=== PATIENT | female | born 1940 | race Hispanic/Latino ===

== ENCOUNTER 2016-05-01 11:14 | Inpatient (IN) | payer MEDICARE, BC ==
[2016-05-01 13:40] VITALS: BMI 39.9
--- NOTE | 2016-05-01 14:44 | CP.PCM.HP ---
History of Present Illness - History of Present Illness History of Present Illness: 75 yo female with history of HTN, HLD, Sleep Apnea, DM2 and Gout had right TKR on April 29, 2016 after failing conservative management of OA of the right knee. Present on Admission - Present on Admission Any Indicators Present on Admission: No History of DVT/PE: No History of Uncontrolled Diabetes: No Urinary Catheter: No Decubitus Ulcer Present: No Review of Systems - Review of Systems All systems: reviewed and no additional remarkable complaints except (aside from those mentioned above, 12 point system review were negative by me) Past Patient History - Tetanus Immunizations Tetanus Immunization: Unknown - Past Social History Smoking Status: Never Smoked Chewing Tobacco Use: No Cigar Use: No Alcohol: Occasional - CARDIAC Hx Hypercholesterolemia: Yes Hx Hypertension: Yes - PULMONARY Hx Sleep Apnea: Yes - NEUROLOGICAL Hx Neurological Disorder: No - HEENT Hx HEENT Problems: No - RENAL Hx Chronic Kidney Disease: No - ENDOCRINE/METABOLIC Hx Diabetes Mellitus Type 2: Yes (controlled by diet) - HEMATOLOGICAL/ONCOLOGICAL Hx Blood Disorders: No - INTEGUMENTARY Hx Dermatological Problems: No - MUSCULOSKELETAL/RHEUMATOLOGICAL Hx Gout: Yes Hx Osteoarthritis: Yes - GASTROINTESTINAL Hx Gastrointestinal Disorders: No - GENITOURINARY/GYNECOLOGICAL Hx Genitourinary Disorders: No - PSYCHIATRIC Hx Psychophysiologic Disorder: No - SURGICAL HISTORY Hx Surgeries: Yes Hx Cholecystectomy: Yes Other/Comment: carpal tunnel release - ANESTHESIA Hx Anesthesia: Yes Hx Anesthesia Reactions: No Meds Allergies/Adverse Reactions: Allergies Allergy/AdvReac Type Severity Reaction Status Date / Time iodine AdvReac ITCHING Verified 05/01/16 13:49 Iodine and Iodide Containing AdvReac RASH Verified 05/01/16 13:49 Produc Physical Exam - Constitutional Appears: No Acute Distress - Head Exam Head Exam: ATRAUMATIC - Eye Exam Eye Exam: absent: Scleral icterus - ENT Exam ENT Exam: Mucous Membranes Moist - Neck Exam Neck exam: Negative for: Meningismus - Respiratory Exam Respiratory Exam: absent: Rhonchi, Wheezes, Respiratory Distress - Cardiovascular Exam Cardiovascular Exam: REGULAR RHYTHM, +S1, +S2 - GI/Abdominal Exam GI & Abdominal Exam: Soft. absent: Tenderness - Rectal Exam Rectal Exam: Deferred - Neurological Exam Neurological exam: Alert, Oriented x3 - Psychiatric Exam Psychiatric exam: Normal Affect - Skin Skin Exam: Dry, Intact Assessment & Plan (1) Status post total knee replacement, right Status: Acute Comment: admit to acute rehab. physiatry consult with Dr Foster. refer for PT/ OT. Percocet 1 tab q 4hrs prn for pain (2) HTN (hypertension) Status: Chronic Comment: continue Coreg, Valsartan/HCTZ and Lasix. Monitor BP (3) DM2 (diabetes mellitus, type 2) Status: Chronic Comment: HgA1C, BMP in am. accuchek ACHS. Victoza 12 units SC daily (4) Gout Status: Chronic Comment: continue Allopurinol 100mg PO BID (5) HLD (hyperlipidemia) Status: Chronic Comment: cotninue LIpitor 10mg PO HS (6) DVT prophylaxis Status: Acute Comment: Lovenox 30mg SC q 12hrs
[2016-05-01] MEDS ORDERED: CYCLOSPORINE OU SCH (15:45)
--- NOTE | 2016-05-01 18:24 | CP.PCM.PN ---
Subjective - Date & Time of Evaluation Date of Evaluation: 05/01/16 Time of Evaluation: 18:23 - Subjective Subjective: right TKR Objective - Vital Signs/Intake and Output Vital Signs (last 24 hours): Temp Pulse Resp BP Pulse Ox 97.9 F 70 20 155/78 H 95 05/01/16 15:45 05/01/16 17:28 05/01/16 15:45 05/01/16 17:28 05/01/16 15:45 - Medications Medications: Current Medications Acetaminophen (Tylenol 325mg Tab) 650 mg PO Q4 PRN PRN Reason: Pain, Mild (1-3) Allopurinol (Zyloprim) 100 mg PO BID [facility] Last Admin: 05/01/16 17:09 Dose: 100 mg Atorvastatin Calcium (Lipitor) 10 mg PO DIN [facility] Last Admin: 05/01/16 17:09 Dose: 10 mg Carvedilol (Coreg) 25 mg PO QPM [facility] Last Admin: 05/01/16 17:28 Dose: 25 mg Docusate Sodium (Colace) 100 mg PO BID [facility] Last Admin: 05/01/16 17:11 Dose: 100 mg Enoxaparin Sodium (Lovenox) 40 mg SC DAILY [facility] PRN Reason: Protocol Furosemide (Lasix) 20 mg PO MWF [facility] Home Med (Cyclosporine [Restasis]) 1 ea OU .TWICE A WEEK [facility] Home Med (Liraglutide [Victoza 2-Marques]) 12 units SC DAILY [facility] Hydrochlorothiazide (Microzide) 12.5 mg PO DAILY [facility] Oxycodone/Acetaminophen (Percocet 5/325 Mg Tab) 1 tab PO Q4 PRN PRN Reason: pain,4-10 Stop: 05/04/16 15:32 Pantoprazole Sodium (Protonix Ec Tab) 40 mg PO DAILY [facility] Valsartan (Diovan) 320 mg PO DAILY [facility] Physiatry Overall Plan of Care - Overall Plan of Care Estimated Length of Stay in Weeks: 2 Rehab Impairment: Mobility, Gait, Balance, Coordination Etiologic Diagnosis: Hip/Knee Surgery Rehab/Medical Prognosis: Good - Anticipated Interventions Physical Therapy:: Yes Occupational Therapy:: Yes Speech Therapy:: No Recreational Therapy:: Yes - Therapy Goals Bed Mobility: Supervision Ambulation: Supervision Functional Positional Changes:: Supervision - Discharge Plan Discharge Destination: Home
--- NOTE | 2016-05-01 18:26 | CP.PCM.CON ---
History of Present Illness - History of Present Illness History of Present Illness: Dr Foster PMR consultation on Annika Velasco, born 1940, who has been admitted to [facility] acute inpatient rehabilitation following an elective right TKR after failed conservative measures. Performed 04/29/[address] Alves. No post op complications and she has already had a BM Review of Systems - Constitutional Constitutional: absent: Anorexia, Chills - EENT Eyes: absent: Blurred Vision Nose/Mouth/Throat: absent: Nasal Congestion - Cardiovascular Cardiovascular: absent: Chest Pain - Respiratory Respiratory: absent: Dyspnea, Hemoptysis - Gastrointestinal Gastrointestinal: absent: Belching, Constipation - Musculoskeletal Musculoskeletal: absent: Back Pain - Integumentary Integumentary: absent: Bleeding Lesions (has right TKR incision) - Neurological Neurological: absent: Abnormal Movements, Paresthesias Past Patient History - Infectious Disease Hx of Infectious Diseases: None - Tetanus Immunizations Tetanus Immunization: Unknown - Past Medical History & Family History Past Medical History?: Yes - Past Social History Smoking Status: Never Smoked Chewing Tobacco Use: No Cigar Use: No Alcohol: Occasional Home Situation {Lives}: With Family (few steps) - CARDIAC Hx Hypercholesterolemia: Yes Hx Hypertension: Yes - PULMONARY Hx Sleep Apnea: Yes - NEUROLOGICAL Hx Neurological Disorder: No - HEENT Hx HEENT Problems: No - RENAL Hx Chronic Kidney Disease: No - ENDOCRINE/METABOLIC Hx Diabetes Mellitus Type 2: Yes (controlled by diet) - HEMATOLOGICAL/ONCOLOGICAL Hx Blood Disorders: No - INTEGUMENTARY Hx Dermatological Problems: No - MUSCULOSKELETAL/RHEUMATOLOGICAL Hx Gout: Yes Hx Osteoarthritis: Yes - GASTROINTESTINAL Hx Gastrointestinal Disorders: No - GENITOURINARY/GYNECOLOGICAL Hx Genitourinary Disorders: No - PSYCHIATRIC Hx Psychophysiologic Disorder: No - SURGICAL HISTORY Hx Surgeries: Yes Hx Cholecystectomy: Yes Other/Comment: carpal tunnel release - ANESTHESIA Hx Anesthesia: Yes Hx Anesthesia Reactions: No Meds Allergies/Adverse Reactions: Allergies Allergy/AdvReac Type Severity Reaction Status Date / Time iodine AdvReac ITCHING Verified 05/01/16 13:49 Iodine and Iodide Containing AdvReac RASH Verified 05/01/16 13:49 Produc - Medications Medications: Current Medications Acetaminophen (Tylenol 325mg Tab) 650 mg PO Q4 PRN PRN Reason: Pain, Mild (1-3) Allopurinol (Zyloprim) 100 mg PO BID [facility] Last Admin: 05/01/16 17:09 Dose: 100 mg Atorvastatin Calcium (Lipitor) 10 mg PO DIN [facility] Last Admin: 05/01/16 17:09 Dose: 10 mg Carvedilol (Coreg) 25 mg PO QPM [facility] Last Admin: 05/01/16 17:28 Dose: 25 mg Docusate Sodium (Colace) 100 mg PO BID [facility] Last Admin: 05/01/16 17:11 Dose: 100 mg Enoxaparin Sodium (Lovenox) 40 mg SC DAILY [facility] PRN Reason: Protocol Furosemide (Lasix) 20 mg PO MWF [facility] Home Med (Cyclosporine [Restasis]) 1 ea OU .TWICE A WEEK [facility] Home Med (Liraglutide [Victoza 2-Marques]) 12 units SC DAILY [facility] Hydrochlorothiazide (Microzide) 12.5 mg PO DAILY [facility] Oxycodone/Acetaminophen (Percocet 5/325 Mg Tab) 1 tab PO Q4 PRN PRN Reason: pain,4-10 Stop: 05/04/16 15:32 Pantoprazole Sodium (Protonix Ec Tab) 40 mg PO DAILY [facility] Valsartan (Diovan) 320 mg PO DAILY [facility] Physical Exam - Constitutional Appears: Well, Non-toxic, No Acute Distress - Head Exam Head Exam: ATRAUMATIC, NORMAL INSPECTION, NORMOCEPHALIC - Eye Exam Eye Exam: EOMI - ENT Exam ENT Exam: Mucous Membranes Moist - Respiratory Exam Respiratory Exam: NORMAL BREATHING PATTERN. absent: Chest Wall Tenderness - Cardiovascular Exam Cardiovascular Exam: REGULAR RHYTHM - GI/Abdominal Exam GI & Abdominal Exam: Normal Bowel Sounds - Extremities Exam Extremities exam: Negative for: calf tenderness, normal inspection (has a right TKR incision, durabonded) - Neurological Exam Neurological exam: Alert, CN II-XII Intact, Oriented x3 - Psychiatric Exam Psychiatric exam: Normal Affect, Normal Mood Results - Vital Signs Recent Vital Signs: Last Vital Signs Temp 97.9 F 05/01/16 15:45 Pulse 70 05/01/16 17:28 Resp 20 05/01/16 15:45 BP 155/78 H 05/01/16 17:28 Pulse Ox 95 05/01/16 15:45 - Labs Labs: Laboratory Results - last 24 hr 05/01/16 16:37 POC Glucose (mg/dL) 157 H Assessment & Plan - Assessment and Plan (Free Text) Assessment: right TKR Plan: PT/OT to continue to help increase functional independence Team conference for d/c planning Pain: controlled Vascular: no evidence of DVT GI: No evidence of constipation or diarrhea Patient is an excellent acute rehabilitation candidate and will have focused pain management, wound care, PT, OT and recreational therapy to help facilitate a safe and appropriate d/c plan impairment code 08.61
[2016-05-01] MEDS ORDERED: Enoxaparin 30 mg Syringe SC SCH (21:00)
[2016-05-02 07:10] LABS: BASO % 0.3 % (0.0-2.0); EOS # 0.1 K/uL (0.0-0.7); EOS % 0.9 % (0.0-4.0); HEMATOCRIT 30.4 % (34.0-47.0); LYMPH # 1.1 K/uL (1.0-4.3); MEAN CELL VOLUME 74.6 fl (81.0-99.0); MEAN CORPUSCULAR HEMOGLOBIN 24.5 pg (27.0-31.0); MEAN CORPUSCULAR HGB CONC 32.8 g/dL (33.0-37.0); MEAN PLATELET VOLUME 8.7 fl (7.2-11.7); MONO # 0.9 K/uL (0.0-0.8); NEUT # 6.9 K/uL (1.8-7.0); NEUT % 76.8 % (50.0-75.0); RED CELL DISTRIBUTION WIDTH 17.6 % (11.5-14.5)
[2016-05-02 07:30] LABS: BLOOD UREA NITROGEN 13 mg/dl (7-17); CALCIUM 9.1 mg/dL (8.4-10.2); CARBON DIOXIDE 32 mmol/L (22-30); CHLORIDE 96 mmol/L (98-107); GFR AFRICAN-AMERICAN > 60; GLUCOSE,RANDOM 123 mg/dL (65-105); SODIUM 138 mmol/l (132-148); URIC ACID 4.1 mg/Dl (2.2-7.5)
[2016-05-02] MEDS: Pantoprazole 40 mg EC Tab PO SCH (09:00)
[2016-05-02] MEDS ORDERED: Patient's Own Med (Valsartan/Hydrochlorothiazide [Valsartan-Hctz 320-12.5 Mg Tab] 1 TAB) PO SCH (09:00)
[2016-05-02] MEDS ORDERED: LIRAGLUTIDE 12 UNIT SC SCH (09:00)
[2016-05-02] MEDS: Oxycodone/Acetaminophen 5/325 mg Tab PO PRN ×2 (09:04→17:51)
[2016-05-02] MEDS: Enoxaparin 40 mg Syringe SC SCH (12:35)
[2016-05-03] MEDS: Oxycodone/Acetaminophen 5/325 mg Tab PO PRN ×2 (08:47→17:45)
[2016-05-03] MEDS: Enoxaparin 40 mg Syringe SC SCH (08:48)
[2016-05-03] MEDS: Pantoprazole 40 mg EC Tab PO SCH (08:49)
[2016-05-04] MEDS: Pantoprazole 40 mg EC Tab PO SCH (08:30)
[2016-05-04] MEDS: Enoxaparin 40 mg Syringe SC SCH (08:31)
[2016-05-04] MEDS: Oxycodone/Acetaminophen 5/325 mg Tab PO PRN (17:30)
[2016-05-05 06:40] LABS: BASO % 0.6 % (0.0-2.0); EOS # 0.4 K/uL (0.0-0.7); EOS % 5.8 % (0.0-4.0); HEMATOCRIT 29.9 % (34.0-47.0); LYMPH # 1.7 K/uL (1.0-4.3); MEAN CELL VOLUME 75.4 fl (81.0-99.0); MEAN CORPUSCULAR HEMOGLOBIN 23.9 pg (27.0-31.0); MEAN CORPUSCULAR HGB CONC 31.8 g/dL (33.0-37.0); MONO # 0.8 K/uL (0.0-0.8); MONO % 10.6 % (0.0-10.0); NEUT # 4.7 K/uL (1.8-7.0); RED CELL DISTRIBUTION WIDTH 17.5 % (11.5-14.5); WHITE BLOOD COUNT 7.6 K/uL (4.8-10.8)
[2016-05-05] MEDS: Enoxaparin 40 mg Syringe SC SCH (08:42)
[2016-05-05] MEDS: Pantoprazole 40 mg EC Tab PO SCH (08:43)
[2016-05-05] MEDS: Oxycodone/Acetaminophen 5/325 mg Tab PO PRN ×3 (08:43→18:42)
--- NOTE | 2016-05-05 13:27 | CP.PCM.PN ---
Subjective - Date & Time of Evaluation Date of Evaluation: 05/05/16 Time of Evaluation: 14:00 - Subjective Subjective: pt feeling well improving with PT no complaints no cp no sob vss nad Objective - Vital Signs/Intake and Output Vital Signs (last 24 hours): Temp Pulse Resp BP Pulse Ox 97.7 F 72 20 149/63 95 05/05/16 08:02 05/05/16 08:02 05/05/16 08:02 05/05/16 08:48 05/05/16 08:02 Intake and Output: 05/05/16 05/05/16 06:59 18:59 Intake Total 360 Balance 360 - Medications Medications: Current Medications Acetaminophen (Tylenol 325mg Tab) 650 mg PO Q4 PRN PRN Reason: Pain, Mild (1-3) Last Admin: 05/04/16 15:42 Dose: 650 mg Allopurinol (Zyloprim) 100 mg PO BID [facility] Last Admin: 05/05/16 08:43 Dose: 100 mg Atorvastatin Calcium (Lipitor) 10 mg PO [facility] Carvedilol (Coreg) 25 mg PO [facility] Docusate Sodium (Colace) 100 mg PO BID [facility] Last Admin: 05/05/16 08:40 Dose: 100 mg Enoxaparin Sodium (Lovenox) 40 mg SC DAILY [facility] PRN Reason: Protocol Last Admin: 05/05/16 08:42 Dose: 40 mg Furosemide (Lasix) 20 mg PO [facility] Last Admin: 05/05/16 08:48 Dose: 20 mg Home Med (Patient's Own Medication) 1 unit PO DAILY [facility] Oxycodone/Acetaminophen (Percocet 5/325 Mg Tab) 1 tab PO Q4 PRN PRN Reason: pain 4-10 Stop: 05/07/16 15:46 Last Admin: 05/05/16 13:24 Dose: 1 tab Pantoprazole Sodium (Protonix Ec Tab) 40 mg PO DAILY [facility] Last Admin: 05/05/16 08:43 Dose: 40 mg - Labs Labs: 05/05/16 06:33 05/02/16 06:50 - Constitutional Appears: Non-toxic, No Acute Distress - Head Exam Head Exam: ATRAUMATIC, NORMOCEPHALIC - Eye Exam Eye Exam: Normal appearance, PERRL - ENT Exam ENT Exam: Mucous Membranes Moist, Normal Oropharynx - Neck Exam Neck Exam: Full ROM, Normal Inspection - Respiratory Exam Respiratory Exam: Clear to Ausculation Bilateral, NORMAL BREATHING PATTERN - Cardiovascular Exam Cardiovascular Exam: RRR, +S1, +S2. absent: Gallop, Rubs - GI/Abdominal Exam GI & Abdominal Exam: Soft, Normal Bowel Sounds. absent: Tenderness, Mass, Organomegaly - Extremities Exam Extremities Exam: Normal Capillary Refill. absent: Calf Tenderness - Back Exam Back Exam: absent: CVA tenderness (L), CVA tenderness (R) - Neurological Exam Neurological Exam: Alert, Awake - Psychiatric Exam Psychiatric exam: Normal Affect, Normal Mood - Skin Skin Exam: Dry, Warm Assessment and Plan - Assessment and Plan (Free Text) Plan: 75 yo female with history of HTN, HLD, Sleep Apnea, DM2 and Gout had right TKR on April 29, 2016 after failing conservative management of OA of the right knee. (1) Status post total knee replacement, right Status: Acute Comment: physiatry consult with Dr Foster continue PT/OT Percocet 1 tab q 4hrs prn for pain (2) HTN (hypertension) Status: Chronic Comment: continue Coreg, Valsartan/HCTZ and Lasix Monitor BP (3) DM2 (diabetes mellitus, type 2) Status: Chronic Comment: HgA1C, BMP in am. accuchek ACHS. (4) Gout Status: Chronic Comment: continue Allopurinol 100mg PO BID (5) HLD (hyperlipidemia) Status: Chronic Comment: continue Lipitor 10mg PO HS (6) DVT prophylaxis Status: Acute Comment: Lovenox 30mg SC q 12hrs
--- NOTE | 2016-05-05 17:55 | CP.PCM.PN ---
Subjective - Date & Time of Evaluation Date of Evaluation: 05/05/16 Time of Evaluation: 17:54 - Subjective Subjective: Patient seen in room denies sob/cp happy with PT/OT pain is controlled well motivated PT/OT to continue to help increase functional independence Team conference for d/c planning Pain: controlled Vascular: no evidence of DVT GI: constipation for a couple of days, but took stool softener Patient continues to be an excellent acute rehabilitation candidate and will have continued pain management PT, OT and recreational therapy to help facilitate a safe and appropriate d/c plan Objective - Vital Signs/Intake and Output Vital Signs (last 24 hours): Temp Pulse Resp BP Pulse Ox 98.4 F 80 20 152/70 H 94 L 05/05/16 15:59 05/05/16 15:59 05/05/16 15:59 05/05/16 15:59 05/05/16 15:59 Intake and Output: 05/05/16 05/05/16 06:59 18:59 Intake Total 360 Balance 360 - Medications Medications: Current Medications Acetaminophen (Tylenol 325mg Tab) 650 mg PO Q4 PRN PRN Reason: Pain, Mild (1-3) Last Admin: 05/04/16 15:42 Dose: 650 mg Allopurinol (Zyloprim) 100 mg PO BID [facility] Last Admin: 05/05/16 17:10 Dose: 100 mg Atorvastatin Calcium (Lipitor) 10 mg PO HS [facility] Carvedilol (Coreg) 25 mg PO HS [facility] Carvedilol (Coreg) 12.5 mg PO DAILY [facility] Docusate Sodium (Colace) 100 mg PO BID [facility] Last Admin: 05/05/16 17:10 Dose: 100 mg Enoxaparin Sodium (Lovenox) 40 mg SC DAILY [facility] PRN Reason: Protocol Last Admin: 05/05/16 08:42 Dose: 40 mg Furosemide (Lasix) 20 mg PO MWF [facility] Last Admin: 05/05/16 08:48 Dose: 20 mg Home Med (Patient's Own Medication) 1 unit PO DAILY [facility] Oxycodone/Acetaminophen (Percocet 5/325 Mg Tab) 1 tab PO Q4 PRN PRN Reason: pain 4-10 Stop: 05/07/16 15:46 Last Admin: 05/05/16 13:24 Dose: 1 tab Pantoprazole Sodium (Protonix Ec Tab) 40 mg PO DAILY [facility] Last Admin: 05/05/16 08:43 Dose: 40 mg - Labs Labs: 05/05/16 06:33 05/02/16 06:50
[2016-05-06] MEDS: Oxycodone/Acetaminophen 5/325 mg Tab PO PRN ×3 (09:10→18:47)
[2016-05-06] MEDS: Enoxaparin 40 mg Syringe SC SCH (09:32)
[2016-05-06] MEDS: Pantoprazole 40 mg EC Tab PO SCH (09:33)
[2016-05-06] MEDS: VALSARTAN PO SCH (09:33)
--- NOTE | 2016-05-06 13:48 | PSY.TMCNF ---
Nursing - Vital Signs Vital Signs (Last 8 hours): Vital Signs 05/06/16 05/06/16 05/06/16 09:32 10:00 12:03 Temperature 97.3 F L 97.3 F L Pulse Rate 83 83 83 Respiratory 20 20 Rate Blood Pressure 124/53 L 124/53 L 124/53 L O2 Sat by Pulse 99 Oximetry Pain: 0 - Precautions: Precautions: Fall Prevention - Medications/Other Issues Comment: pain management - Consults Comment: Dr. Foster - Skin Incision Site: right knee I/L with dermabond Dressing Status: Clean, Dry, Intact Incision Line Treatment: Civer with abdominal pad then apply cornell bandage - Toileting Toileting: Moderate Assistance - Bladder Management Bladder Pattern: Incontinent Voiding Method: Toilet Bladder Management: Minimal Assistance - Bowel Management Bowel Pattern: Constipated Bowel Management: Minimal Assistance - Transfers Transfers: Moderate Assistance - ADL's ADL's: Moderate Assistance - Pain Management Comments: Percocet 5/325mg 1 tab Q4hr prn - Patient/Family Teaching Comments: Pain management, safety - Goals/Time Frame Comments: as per ipoc Physical Therapy - Bed Mobility Bed Mobility: Verbal Cues, Minimal Assistance, Moderate Assistance Comment: Pt uses her own Green stretch out strap to assist RLE during bed mob. mod vc for sequencing - Transfers Wheelchair to Mat: Verbal Cues, Minimal Assistance Sit to Stand: Verbal Cues, Minimal Assistance, Moderate Assistance Comment: mod vc for sequencing for t/f, magali to scoot forward prior to standing and for hand placement during t/f. sit to stand t/f from elevated mat height w / min A - Ambulation Level of Assistance: Verbal Cues, Minimal Assistance Distance (ft.): 30 Assistive Devices: Rolling Walker Comment: x1, 10' x 1 w/ w/c follow. flexed posture, narrow DAMIEN, antalgic gait; difficulty adhering to PWB gait but improving (Able to perform step to pattern) ; tends to keep R knee slightly flexed t/o gait cycle. Pt self limits amb distance secondary to fatigue, pain and anxiety. Pt tends to take freq standing rest periods at RW and places B hands on front frame of RW during each rest period (despite vc to keep hands on RW handles t/o task). Pt also flexes excessively at trunk during these rest periods. (+)impaired safety awareness during these episodes - Stair Negotiation Stairs: Level of Assistance: Not Tested Comment: Pt declined task today, agreeable to attempt tomorrow. pt has 6 ARMAND - Standing Balance Static Stand: Minimal Assistance Dynamic Stand: Minimal Assistance, Moderate Assistance Comment: w/ RW - Pain Management Techniques: Medication - Insight/Carryover Insight/Carryover: Fair - Patient/Family Education Comment: fxn mob, safety, balance, TKA related topics, benefit of incr'd OOB during rehab stay, POC, rehab goals, edema mgmt, pain mgmt, - Assessment/Plan Assessment: Pt is engaged in independent leisure tasks throughout her free time. Pt reads magazines and books as well as watches television. Pt expressed interest in participating in recreation therapy sessions to improve arousal level and for diversion. - Goals Timeframe: 1 week Goals: STG. CS sit to stand, SPT and supine to sit with RW PWB R LE. Increase R LE 1/2 grade. Increase R knee flexion 20 degrees. Static standing balance CS x 5 minutes for toileting. min A x x1 with 5 practice stairs using HRs PWB. CG/ CS x 75ft. with RW PWB R LE - Provider Therapist: Darlene Littlejohn PT,DPT License Number: [id number] Occupational Therapy - Arousal/Attention/Orientation Patient Orientation: Person, Place, Time, Appropriate to Age, Appropriate to Situation - ADL/IADL Self Feeding: Modified Independent Grooming: Supervision, Verbal Cues, Set-up Help Dressing-Upper Extremity: Supervision, Verbal Cues, Set-up Help Dressing-Lower Extremity: Set-up Help, Moderate Assistance Comment: Shower/bathing: to assess in future sessions. - Sitting Balance Static Sitting: Independent without upper extremity support Dynamic Sitting: Reaches across midline, Reaches out of base of support, Reaches within base of support - Transfers Wheelchair to Bed Transfers: Verbal Cues, Set-up Help, Minimal Assistance Toilet Transfers: Verbal Cues, Set-up Help, Minimal Assistance Comment: *bariatric bedside commode - Wheelchair Management Level of Assistance: Supervision Distance (ft.): 25 - Upper Extremity Status Right Upper Extremity Comment: PROM-WNLS Left Upper Extremity Comment: PROM-WNLS - Pain Alleviating Techniques: Medication - Insight/Carryover Insight/Carryover: Fair - Patient/Family Education Comment: fxn mob, safety, balance, TKA related topics, benefit of incr'd OOB during rehab stay, POC, rehab goals, edema mgmt, pain mgmt, - Assessment/Plan Assessment: Pt is engaged in independent leisure tasks throughout her free time. Pt reads magazines and books as well as watches television. Pt expressed interest in participating in recreation therapy sessions to improve arousal level and for diversion. - Goals Timeframe: 1 week Goals: STG. CS sit to stand, SPT and supine to sit with RW PWB R LE. Increase R LE 1/2 grade. Increase R knee flexion 20 degrees. Static standing balance CS x 5 minutes for toileting. min A x x1 with 5 practice stairs using HRs PWB. CG/ CS x 75ft. with RW PWB R LE - Provider Therapist: kenzie camarillo License Number: [id number] Speech Therapy - Plan Assessment: Pt is engaged in independent leisure tasks throughout her free time. Pt reads magazines and books as well as watches television. Pt expressed interest in participating in recreation therapy sessions to improve arousal level and for diversion. Recreational Therapy - Participation Participation: Monitors His/Her Own Leisure Time - Attendance Attendance: 3-5 times per week - Activities Leisure Activities: Cards and Games - Socialization Level of Socialization: Initiates/interacts freely with care givers and peer - Diversional Time Diversional Time: reading, television - Assessment Assessment/Plan: Pt is engaged in independent leisure tasks throughout her free time. Pt reads magazines and books as well as watches television. Pt expressed interest in participating in recreation therapy sessions to improve arousal level and for diversion. Problems Currently Limiting Participation: pain, anxiety Goals and Time Frame: Pt will be encouraged to attend daily 1:1 and group recreation therapy sessions 3-5x week to improve arousal level, activity tolerance level, and decrease anxiety level. - Provider Therapist: Elana Amador, [employer] #[id number] Nutrition - Current Diet Current Diet/ Supplement/ Feedings: 2 gm Na, moderate consistent CHO diet - Appetite Percent Meal Consumed: 25-49% - Comments Comments: Pain management, safety - Assessment/Goals/Time Frame Assessment/Goals/Time Frame: pain management - Provider Provider: Mary Ann Barker MS, RD Rehabilitation Plan - Treatment Plan Treatment Plan: Physical Therapy, Occupational Therapy, Dietary, Pain Management , Wound Care, Patient/Family Education - Discharge Plan Estimated Date of Discharge: 05/14/16 Discharge to: Home
--- NOTE | 2016-05-06 14:23 | CP.PCM.PN ---
Subjective - Date & Time of Evaluation Date of Evaluation: 05/06/16 Time of Evaluation: 14:22 - Subjective Subjective: Patient seen in room discussed need to do ROM at length and to work harder in therapies the bulky FAROOQ wrap is preventing better ROM and will d/c now and put on SHABBIR stockings Objective - Vital Signs/Intake and Output Vital Signs (last 24 hours): Temp Pulse Resp BP Pulse Ox 97.3 F L 83 20 124/53 L 99 05/06/16 12:03 05/06/16 12:03 05/06/16 12:03 05/06/16 12:03 05/06/16 10:00 - Medications Medications: Current Medications Acetaminophen (Tylenol 325mg Tab) 650 mg PO Q4 PRN PRN Reason: Pain, Mild (1-3) Last Admin: 05/04/16 15:42 Dose: 650 mg Allopurinol (Zyloprim) 100 mg PO BID [facility] Last Admin: 05/06/16 09:33 Dose: 100 mg Atorvastatin Calcium (Lipitor) 10 mg PO [facility] Last Admin: 05/05/16 22:03 Dose: 10 mg Carvedilol (Coreg) 25 mg PO [facility] Last Admin: 05/05/16 22:02 Dose: 25 mg Carvedilol (Coreg) 12.5 mg PO DAILY [facility] Last Admin: 05/06/16 09:32 Dose: 12.5 mg Docusate Sodium (Colace) 100 mg PO BID [facility] Last Admin: 05/06/16 09:31 Dose: 100 mg Enoxaparin Sodium (Lovenox) 40 mg SC DAILY [facility] PRN Reason: Protocol Last Admin: 05/06/16 09:32 Dose: 40 mg Furosemide (Lasix) 20 mg PO MWF [facility] Last Admin: 05/05/16 08:48 Dose: 20 mg Home Med (Patient's Own Medication) 1 unit PO DAILY [facility] Last Admin: 05/06/16 09:33 Dose: 1 unit Lactulose (Enulose) 20 gm PO DAILY PRN PRN Reason: Constipation Oxycodone/Acetaminophen (Percocet 5/325 Mg Tab) 1 tab PO Q4 PRN PRN Reason: pain 4-10 Stop: 05/07/16 15:46 Last Admin: 05/06/16 09:10 Dose: 1 tab Pantoprazole Sodium (Protonix Ec Tab) 40 mg PO DAILY [facility] Last Admin: 05/06/16 09:33 Dose: 40 mg - Labs Labs: 05/05/16 06:33 05/02/16 06:50
[2016-05-07] MEDS: Enoxaparin 40 mg Syringe SC SCH (09:19)
[2016-05-07] MEDS: Oxycodone/Acetaminophen 5/325 mg Tab PO PRN ×2 (09:19→13:21)
[2016-05-07] MEDS: VALSARTAN PO SCH (09:20)
[2016-05-07] MEDS: Pantoprazole 40 mg EC Tab PO SCH (09:20)
--- NOTE | 2016-05-07 11:58 | CP.PCM.PN ---
Subjective - Date & Time of Evaluation Date of Evaluation: 05/07/16 Time of Evaluation: 15:09 - Subjective Subjective: Pt doing well feeling well todya, doing well with PT no cp no dypsnea pain controlled vss nad Objective - Vital Signs/Intake and Output Vital Signs (last 24 hours): Temp Pulse Resp BP Pulse Ox 98.2 F 74 22 153/55 H 96 05/07/16 08:43 05/07/16 09:18 05/07/16 08:43 05/07/16 09:19 05/07/16 08:43 - Constitutional Appears: Non-toxic, No Acute Distress - Head Exam Head Exam: ATRAUMATIC, NORMOCEPHALIC - Eye Exam Eye Exam: Normal appearance, PERRL - ENT Exam ENT Exam: Mucous Membranes Moist, Normal Oropharynx - Neck Exam Neck Exam: Full ROM, Normal Inspection - Respiratory Exam Respiratory Exam: Clear to Ausculation Bilateral, NORMAL BREATHING PATTERN - Cardiovascular Exam Cardiovascular Exam: RRR, +S1, +S2. absent: Gallop, Rubs - GI/Abdominal Exam GI & Abdominal Exam: Soft, Normal Bowel Sounds. absent: Tenderness, Mass, Organomegaly - Extremities Exam Extremities Exam: Normal Capillary Refill. absent: Calf Tenderness - Back Exam Back Exam: absent: CVA tenderness (L), CVA tenderness (R) - Neurological Exam Neurological Exam: Alert, Awake - Psychiatric Exam Psychiatric exam: Normal Affect, Normal Mood - Skin Skin Exam: Dry, Warm - Medications Medications: Current Medications Acetaminophen (Tylenol 325mg Tab) 650 mg PO Q4 PRN PRN Reason: Pain, Mild (1-3) Last Admin: 05/04/16 15:42 Dose: 650 mg Allopurinol (Zyloprim) 100 mg PO BID [facility] Last Admin: 05/07/16 09:21 Dose: 100 mg Atorvastatin Calcium (Lipitor) 10 mg PO [facility] Last Admin: 05/06/16 21:56 Dose: 10 mg Carvedilol (Coreg) 25 mg PO HS [facility] Last Admin: 05/06/16 21:56 Dose: 25 mg Carvedilol (Coreg) 12.5 mg PO DAILY [facility] Last Admin: 05/07/16 09:18 Dose: 12.5 mg Docusate Sodium (Colace) 100 mg PO BID [facility] Last Admin: 05/07/16 09:18 Dose: 100 mg Enoxaparin Sodium (Lovenox) 40 mg SC DAILY [facility] PRN Reason: Protocol Last Admin: 05/07/16 09:19 Dose: 40 mg Furosemide (Lasix) 20 mg PO MWF [facility] Last Admin: 05/07/16 09:19 Dose: 20 mg Home Med (Patient's Own Medication) 1 unit PO DAILY [facility] Last Admin: 05/07/16 09:20 Dose: 1 unit Lactulose (Enulose) 20 gm PO DAILY PRN PRN Reason: Constipation Oxycodone/Acetaminophen (Percocet 5/325 Mg Tab) 1 tab PO Q4 PRN PRN Reason: pain 4-10 Stop: 05/07/16 15:46 Last Admin: 05/07/16 09:19 Dose: 1 tab Pantoprazole Sodium (Protonix Ec Tab) 40 mg PO DAILY [facility] Last Admin: 05/07/16 09:20 Dose: 40 mg - Labs Labs: 05/05/16 06:33 05/02/16 06:50 Assessment and Plan - Assessment and Plan (Free Text) Plan: 75 yo female with history of HTN, HLD, Sleep Apnea, DM2 and Gout had right TKR on April 29, 2016 after failing conservative management of OA of the right knee. (1) Status post total knee replacement, right Status: Acute Comment: physiatry consult with Dr Foster doing well continue plan continue PT/OT Percocet 1 tab q 4hrs prn for pain (2) HTN (hypertension) Status: Chronic Comment: continue Coreg, Valsartan/HCTZ and Lasix Monitor BP (3) DM2 (diabetes mellitus, type 2) Status: Chronic Comment: HgA1C, BMP in am. accuchek ACHS. (4) Gout Status: Chronic Comment: continue Allopurinol 100mg PO BID (5) HLD (hyperlipidemia) Status: Chronic Comment: continue Lipitor 10mg PO HS (6) DVT prophylaxis Status: Acute Comment: Lovenox 30mg SC q 12hrs
[2016-05-08 08:22] LABS: HEMATOCRIT 30.1 % (34.0-47.0); MEAN CELL VOLUME 75.4 fl (81.0-99.0); MEAN CORPUSCULAR HEMOGLOBIN 23.9 pg (27.0-31.0); MEAN CORPUSCULAR HGB CONC 31.8 g/dL (33.0-37.0); RED CELL DISTRIBUTION WIDTH 17.1 % (11.5-14.5); WHITE BLOOD COUNT 7.4 K/uL (4.8-10.8)
[2016-05-08] MEDS: Oxycodone/Acetaminophen 5/325 mg Tab PO PRN ×2 (08:45→18:54)
[2016-05-08] MEDS: VALSARTAN PO SCH (08:46)
[2016-05-08] MEDS: Enoxaparin 40 mg Syringe SC SCH (08:46)
[2016-05-08] MEDS: Pantoprazole 40 mg EC Tab PO SCH (08:47)
--- NOTE | 2016-05-08 18:52 | CP.PCM.PN ---
Subjective - Date & Time of Evaluation Date of Evaluation: 05/08/16 Time of Evaluation: 18:51 - Subjective Subjective: Patient seen in hallway, ambulating well much better day today improved ROM and improved gait and tolerance. continue current care Objective - Vital Signs/Intake and Output Vital Signs (last 24 hours): Temp Pulse Resp BP Pulse Ox 96.3 F L 77 22 158/60 H 96 05/08/16 15:40 05/08/16 15:40 05/08/16 15:40 05/08/16 15:40 05/08/16 15:40 - Medications Medications: Current Medications Acetaminophen (Tylenol 325mg Tab) 650 mg PO Q4 PRN PRN Reason: Pain, Mild (1-3) Last Admin: 05/04/16 15:42 Dose: 650 mg Allopurinol (Zyloprim) 100 mg PO BID [facility] Last Admin: 05/08/16 17:16 Dose: 100 mg Atorvastatin Calcium (Lipitor) 10 mg PO [facility] Last Admin: 05/07/16 21:18 Dose: 10 mg Carvedilol (Coreg) 25 mg PO [facility] Last Admin: 05/07/16 21:18 Dose: 25 mg Carvedilol (Coreg) 12.5 mg PO DAILY [facility] Last Admin: 05/08/16 08:47 Dose: 12.5 mg Docusate Sodium (Colace) 100 mg PO BID [facility] Last Admin: 05/08/16 17:16 Dose: 100 mg Enoxaparin Sodium (Lovenox) 40 mg SC DAILY [facility] PRN Reason: Protocol Last Admin: 05/08/16 08:46 Dose: 40 mg Furosemide (Lasix) 20 mg PO [facility] Last Admin: 05/07/16 09:19 Dose: 20 mg Home Med (Patient's Own Medication) 1 unit PO DAILY [facility] Last Admin: 05/08/16 08:46 Dose: 1 unit Lactulose (Enulose) 20 gm PO DAILY PRN PRN Reason: Constipation Oxycodone/Acetaminophen (Percocet 5/325 Mg Tab) 1 tab PO Q4 PRN PRN Reason: Pain 4-10 Stop: 05/11/16 08:15 Last Admin: 05/08/16 08:45 Dose: 1 tab Pantoprazole Sodium (Protonix Ec Tab) 40 mg PO DAILY [facility] Last Admin: 05/08/16 08:47 Dose: 40 mg - Labs Labs: 05/08/16 08:04 05/02/16 06:50
[2016-05-09] MEDS: Enoxaparin 40 mg Syringe SC SCH (09:00)
[2016-05-09] MEDS: VALSARTAN PO SCH (09:01)
[2016-05-09] MEDS: Oxycodone/Acetaminophen 5/325 mg Tab PO PRN (10:30)
[2016-05-09] MEDS: Pantoprazole 40 mg EC Tab PO SCH (12:50)
--- NOTE | 2016-05-09 14:23 | CP.PCM.PN ---
Subjective - Date & Time of Evaluation Date of Evaluation: 05/09/16 Time of Evaluation: 10:20 - Subjective Subjective: Pt seen and examined. Denied any pain and doing well with PT. Objective - Vital Signs/Intake and Output Vital Signs (last 24 hours): Temp Pulse Resp BP Pulse Ox 98 F 74 20 108/58 L 98 05/09/16 08:59 05/09/16 09:02 05/09/16 08:59 05/09/16 13:42 05/09/16 08:59 - Medications Medications: Current Medications Acetaminophen (Tylenol 325mg Tab) 650 mg PO Q4 PRN PRN Reason: Pain, Mild (1-3) Last Admin: 05/04/16 15:42 Dose: 650 mg Allopurinol (Zyloprim) 100 mg PO BID [facility] Last Admin: 05/09/16 09:00 Dose: 100 mg Atorvastatin Calcium (Lipitor) 10 mg PO [facility] Last Admin: 05/08/16 22:31 Dose: 10 mg Carvedilol (Coreg) 25 mg PO [facility] Last Admin: 05/08/16 22:23 Dose: 25 mg Carvedilol (Coreg) 12.5 mg PO DAILY [facility] Last Admin: 05/09/16 09:02 Dose: 12.5 mg Docusate Sodium (Colace) 100 mg PO BID [facility] Last Admin: 05/09/16 09:02 Dose: 100 mg Enoxaparin Sodium (Lovenox) 40 mg SC DAILY [facility] PRN Reason: Protocol Last Admin: 05/09/16 09:00 Dose: 40 mg Furosemide (Lasix) 20 mg PO MWF [facility] Last Admin: 05/09/16 09:01 Dose: 20 mg Home Med (Patient's Own Medication) 1 unit PO DAILY [facility] Last Admin: 05/09/16 09:01 Dose: 1 unit Lactulose (Enulose) 20 gm PO DAILY PRN PRN Reason: Constipation Oxycodone/Acetaminophen (Percocet 5/325 Mg Tab) 1 tab PO Q4 PRN PRN Reason: Pain 4-10 Stop: 05/11/16 08:15 Last Admin: 05/09/16 10:30 Dose: 1 tab Pantoprazole Sodium (Protonix Ec Tab) 40 mg PO DAILY [facility] Last Admin: 05/09/16 12:50 Dose: 40 mg - Labs Labs: 05/08/16 08:04 05/02/16 06:50 - Constitutional Appears: No Acute Distress - Head Exam Head Exam: ATRAUMATIC - Eye Exam Eye Exam: absent: Scleral icterus - ENT Exam ENT Exam: Mucous Membranes Moist - Neck Exam Neck Exam: absent: Meningismus - Respiratory Exam Respiratory Exam: absent: Rhonchi, Wheezes, Respiratory Distress - Cardiovascular Exam Cardiovascular Exam: REGULAR RHYTHM, +S1, +S2 - GI/Abdominal Exam GI & Abdominal Exam: Soft. absent: Tenderness - Rectal Exam Rectal Exam: Deferred - Back Exam Back Exam: absent: tenderness - Neurological Exam Neurological Exam: Alert, Oriented x3 - Psychiatric Exam Psychiatric exam: Normal Affect - Skin Skin Exam: Dry, Intact Assessment and Plan - Assessment and Plan (Free Text) Assessment: 75 yo female with history of HTN, HLD, Sleep Apnea, DM2 and Gout had right TKR on April 29, 2016 after failing conservative management of OA of the right knee. (1) Status post total knee replacement, right doing well with PT continue pain management (2) HTN (hypertension) Bp stable continue Coreg and Lasix (MWF) (3) DM2 (diabetes mellitus, type 2) BS controlled continue Victoza (4) Gout continue Allopurinol 100mg PO BID (5) HLD (hyperlipidemia) continue LIpitor 10mg PO HS (6) DVT prophylaxis Lovenox 30mg SC q 12hrs
--- NOTE | 2016-05-09 17:57 | CP.PCM.PN ---
Subjective - Date & Time of Evaluation Date of Evaluation: 05/09/16 Time of Evaluation: 17:56 - Subjective Subjective: Patient continues to improve with a decrease in pain and in increase in function denies N/V or fever continues with pain medications Objective - Vital Signs/Intake and Output Vital Signs (last 24 hours): Temp Pulse Resp BP Pulse Ox 97.4 F L 79 20 141/54 L 97 05/09/16 16:17 05/09/16 16:17 05/09/16 16:17 05/09/16 16:17 05/09/16 16:17 - Medications Medications: Current Medications Acetaminophen (Tylenol 325mg Tab) 650 mg PO Q4 PRN PRN Reason: Pain, Mild (1-3) Last Admin: 05/04/16 15:42 Dose: 650 mg Allopurinol (Zyloprim) 100 mg PO BID [facility] Last Admin: 05/09/16 17:02 Dose: 100 mg Atorvastatin Calcium (Lipitor) 10 mg PO [facility] Last Admin: 05/08/16 22:31 Dose: 10 mg Carvedilol (Coreg) 25 mg PO [facility] Last Admin: 05/08/16 22:23 Dose: 25 mg Carvedilol (Coreg) 12.5 mg PO DAILY [facility] Last Admin: 05/09/16 09:02 Dose: 12.5 mg Docusate Sodium (Colace) 100 mg PO BID [facility] Last Admin: 05/09/16 17:02 Dose: 100 mg Enoxaparin Sodium (Lovenox) 40 mg SC DAILY [facility] PRN Reason: Protocol Last Admin: 05/09/16 09:00 Dose: 40 mg Furosemide (Lasix) 20 mg PO MWF [facility] Last Admin: 05/09/16 09:01 Dose: 20 mg Home Med (Patient's Own Medication) 1 unit PO DAILY [facility] Last Admin: 05/09/16 09:01 Dose: 1 unit Lactulose (Enulose) 20 gm PO DAILY PRN PRN Reason: Constipation Oxycodone/Acetaminophen (Percocet 5/325 Mg Tab) 1 tab PO Q4 PRN PRN Reason: Pain 4-10 Stop: 05/11/16 08:15 Last Admin: 05/09/16 10:30 Dose: 1 tab Pantoprazole Sodium (Protonix Ec Tab) 40 mg PO DAILY [facility] Last Admin: 03/17/17 12:50 Dose: 40 mg - Labs Labs: 05/08/16 08:04 05/02/16 06:50
[2016-05-10] MEDS: Enoxaparin 40 mg Syringe SC SCH (08:52)
[2016-05-10] MEDS: Pantoprazole 40 mg EC Tab PO SCH (08:53)
[2016-05-10] MEDS: VALSARTAN PO SCH (08:54)
[2016-05-11 07:54] LABS: HEMATOCRIT 28.4 % (34.0-47.0); MEAN CELL VOLUME 75.4 fl (81.0-99.0); MEAN CORPUSCULAR HEMOGLOBIN 24.2 pg (27.0-31.0); MEAN CORPUSCULAR HGB CONC 32.1 g/dL (33.0-37.0); RED CELL DISTRIBUTION WIDTH 17.5 % (11.5-14.5); WHITE BLOOD COUNT 5.9 K/uL (4.8-10.8)
[2016-05-11] MEDS: Enoxaparin 40 mg Syringe SC SCH (09:11)
[2016-05-11] MEDS: VALSARTAN PO SCH (09:11)
[2016-05-11] MEDS: Pantoprazole 40 mg EC Tab PO SCH (09:11)
[2016-05-11] MEDS ORDERED: Oxycodone/Acetaminophen 5/325 mg Tab PO PRN (12:09)
[2016-05-12] MEDS: Enoxaparin 40 mg Syringe SC SCH (08:54)
[2016-05-12] MEDS: VALSARTAN PO SCH (08:55)
[2016-05-12] MEDS: Pantoprazole 40 mg EC Tab PO SCH (08:55)
--- NOTE | 2016-05-12 12:54 | CP.PCM.PN ---
Subjective - Date & Time of Evaluation Date of Evaluation: 05/12/16 Time of Evaluation: 13:30 - Subjective Subjective: Patient seen and evaluated during PT. Participating well. Hemodynamically stable , afebrile. With 5 episodes of loose BM this AM. Denies any pain.No acute issues overnight. Objective - Vital Signs/Intake and Output Vital Signs (last 24 hours): Temp Pulse Resp BP Pulse Ox 98.6 F 70 22 140/60 98 05/12/16 09:37 05/12/16 09:37 05/12/16 09:37 05/12/16 09:37 05/12/16 09:37 - Medications Medications: Current Medications Acetaminophen (Tylenol 325mg Tab) 650 mg PO Q4 PRN PRN Reason: Pain, Mild (1-3) Last Admin: 05/12/16 08:56 Dose: 650 mg Allopurinol (Zyloprim) 100 mg PO BID [facility] Last Admin: 05/12/16 08:56 Dose: 100 mg Atorvastatin Calcium (Lipitor) 10 mg PO [facility] Last Admin: 05/11/16 21:20 Dose: 10 mg Carvedilol (Coreg) 25 mg PO HS [facility] Last Admin: 05/11/16 21:20 Dose: 25 mg Carvedilol (Coreg) 12.5 mg PO DAILY [facility] Last Admin: 05/12/16 08:54 Dose: 12.5 mg Docusate Sodium (Colace) 100 mg PO BID [facility] Last Admin: 05/12/16 08:53 Dose: 100 mg Enoxaparin Sodium (Lovenox) 40 mg SC DAILY [facility] PRN Reason: Protocol Last Admin: 05/12/16 08:54 Dose: 40 mg Furosemide (Lasix) 20 mg PO MWF [facility] Last Admin: 05/12/16 08:54 Dose: 20 mg Home Med (Patient's Own Medication) 1 unit PO DAILY [facility] Last Admin: 05/12/16 08:55 Dose: 1 unit Lactulose (Enulose) 20 gm PO DAILY PRN PRN Reason: Constipation Oxycodone/Acetaminophen (Percocet 5/325 Mg Tab) 1 tab PO Q4 PRN PRN Reason: Pain, moderate (4-7) Stop: 05/14/16 12:10 Pantoprazole Sodium (Protonix Ec Tab) 40 mg PO DAILY [facility] Last Admin: 03/20/17 08:55 Dose: 40 mg - Labs Labs: 05/11/16 05:30 05/02/16 06:50 - Constitutional Appears: Well, Non-toxic, No Acute Distress - Head Exam Head Exam: ATRAUMATIC, NORMAL INSPECTION, NORMOCEPHALIC - Eye Exam Eye Exam: EOMI, Normal appearance, PERRL Pupil Exam: NORMAL ACCOMODATION - ENT Exam ENT Exam: Mucous Membranes Moist, Normal Exam - Neck Exam Neck Exam: Full ROM, Normal Inspection - Respiratory Exam Respiratory Exam: Clear to Ausculation Bilateral, NORMAL BREATHING PATTERN. absent: Rales, Rhonchi, Wheezes - Cardiovascular Exam Cardiovascular Exam: REGULAR RHYTHM, RRR, +S1, +S2. absent: JVD - GI/Abdominal Exam GI & Abdominal Exam: Soft, Normal Bowel Sounds. absent: Distended, Guarding, Tenderness, Rebound - Rectal Exam Rectal Exam: Deferred - Extremities Exam Extremities Exam: Full ROM, Normal Capillary Refill, Normal Inspection. absent : Pedal Edema - Back Exam Back Exam: NORMAL INSPECTION - Neurological Exam Neurological Exam: Alert, Awake, CN II-XII Intact, Oriented x3 - Psychiatric Exam Psychiatric exam: Normal Affect, Normal Mood - Skin Skin Exam: Dry, Intact, Normal Color, Warm Assessment and Plan - Assessment and Plan (Free Text) Assessment: 75 yo female with history of HTN, HLD, Sleep Apnea, DM2 and Gout had right TKR on April 29, 2016 after failing conservative management of OA of the right knee.At present in acute rehab , participating well with PT. (1) Status post total knee replacement, right doing well with PT continue pain management (2) HTN (hypertension) BP stable continue Coreg and Lasix (MWF) (3) DM2 (diabetes mellitus, type 2) BS controlled continue Victoza (4) Gout continue Allopurinol 100mg PO BID (5) HLD (hyperlipidemia) continue LIpitor 10mg PO HS 6. Anemia hgb 9.1 unclear etiology Start Ferrous sulfate PO 7. DVT prophylaxis Lovenox 30mg SC q 12hrs
[2016-05-13] MEDS: VALSARTAN PO SCH (08:43)
[2016-05-13] MEDS: Pantoprazole 40 mg EC Tab PO SCH (08:44)
[2016-05-13] MEDS: Enoxaparin 40 mg Syringe SC SCH (08:44)
--- NOTE | 2016-05-13 13:22 | PSY.TMCNF ---
Nursing - Vital Signs Vital Signs (Last 8 hours): Vital Signs 05/13/16 05/13/16 05/13/16 08:43 09:01 11:42 Temperature 97.7 F 97.7 F Pulse Rate 74 74 74 Respiratory 21 21 Rate Blood Pressure 137/59 L 137/59 L 137/59 L O2 Sat by Pulse 97 Oximetry Pain: 3 - Precautions: Precautions: Fall Prevention - Medications/Other Issues Comment: Already knows how to self-inject Lovenox. - Consults Comment: Dr. Foster - Skin Incision Site: right knee I/L with dermabond Dressing Status: Clean, Dry, Intact Incision: Healing Well Incision Line Treatment: Cover with abdominal pad . - Toileting Toileting: Modified Independent - Bladder Management Bladder Pattern: Normal, Dribbling Voiding Method: Toilet, Bedpan Bladder Management: Modified Independent Frequency of Accidents: 0 - Bowel Management Bowel Pattern: Normal Bowel Management: Modified Independent Frequency of Accidents: 0 - Transfers Transfers: Modified Independent - ADL's ADL's: Modified Independent - Pain Management Comments: Tylenol PRN - Patient/Family Teaching Comments: Care post TKR, Lovenox injection and safety precautions - Goals/Time Frame Comments: Per multidisciplinary care plans and goals Physical Therapy - Bed Mobility Bed Mobility: Modified Independent - Transfers Wheelchair to Mat: Modified Independent Sit to Stand: Modified Independent Comment: RW - Ambulation Level of Assistance: Modified Independent, Supervision, Verbal Cues Assistive Devices: Rolling Walker Orthoses: n/a Comment: -200 feet with RW with S progressing to mod I, reciprocal pattern, FWB RLE. -cues to maintain upright gaze, RLE knee flexion/extension. -VCs to increase RLE hip flexion and to improve fluidity - Stair Negotiation Stairs: Level of Assistance: Supervision, Verbal Cues Number of Stairs: 10 Stairs: Assistive Devices: Left Handrail, Right Handrail, Single point cane Comment: -asc/desc 8 steps with R rail and SPC on L on ascent and L rail and SPC on R on descent. -step to pattern with forward flexion used to reduce need for RLE weight bearing knee extension/flexion. -descends sideways as patient reports this is her most comfortable position to do so - Standing Balance Static Stand: Modified Craig with assistive device Dynamic Stand: Supervision Comment: RW - Pain Management Techniques: Medication, Ice, Position Change, Elevation, Distraction , Exercise, Inactivity Comment: R knee - Insight/Carryover Insight/Carryover: Good - Patient/Family Education Comment: Patient has been educated about adaptive equipment, durable medical equipment, safety, use of call doss, OT goals and plan of care. Patient expressed understanding. - Assessment/Plan Assessment: Patient continues to require supervision for all functional transfers and ADLs overall secondary to decreased standing balance/tolerance and endurance. Patient is motivated for occupational therapy and demonstrates good UE strength indicating potential for increased independence with ADLs and functional activities. Patient will continue to benefit from skilled OT services 5-6x/week to address above deficits to increase independence for discharge. - Goals Timeframe: 7 days Goals: Modified independent with functional transfers and ADLs - Provider Therapist: Ondina VALDERRAMA RN CRRN Occupational Therapy - Arousal/Attention/Orientation Level of Consciousness: Awake, Alert Patient Orientation: Person, Place, Time, Appropriate to Age, Appropriate to Situation - ADL/IADL Self Feeding: Independent Grooming: Independent Bathing-Upper Extremity: Supervision, Set-up Help Bathing-Lower Extremity: Supervision, Set-up Help Dressing-Upper Extremity: Independent Dressing-Lower Extremity: Supervision Homemaking: Modified Independent, Supervision - Sitting Balance Static Sitting: Independent without upper extremity support Dynamic Sitting: Reaches across midline, Reaches within base of support, Requires supervision - Transfers Wheelchair to Bed Transfers: Supervision, Set-up Help Toilet Transfers: Supervision Tub Transfers: Supervision - Wheelchair Management Level of Assistance: Not Applicable - Upper Extremity Status Right Upper Extremity Comment: ROM = WFL Left Upper Extremity Comment: ROM = WFL - Pain Alleviating Techniques: Medication, Ice, Position Change, Elevation, Distraction , Exercise, Inactivity Comment: R knee - Insight/Carryover Insight/Carryover: Good - Patient/Family Education Comment: Patient has been educated about adaptive equipment, durable medical equipment, safety, use of call doss, OT goals and plan of care. Patient expressed understanding. - Assessment/Plan Assessment: Patient continues to require supervision for all functional transfers and ADLs overall secondary to decreased standing balance/tolerance and endurance. Patient is motivated for occupational therapy and demonstrates good UE strength indicating potential for increased independence with ADLs and functional activities. Patient will continue to benefit from skilled OT services 5-6x/week to address above deficits to increase independence for discharge. - Goals Timeframe: 7 days Goals: Modified independent with functional transfers and ADLs - Provider Therapist: Diana Womack MS, OTR/L License Number: [id number] Speech Therapy - Plan Assessment: Patient continues to require supervision for all functional transfers and ADLs overall secondary to decreased standing balance/tolerance and endurance. Patient is motivated for occupational therapy and demonstrates good UE strength indicating potential for increased independence with ADLs and functional activities. Patient will continue to benefit from skilled OT services 5-6x/week to address above deficits to increase independence for discharge. Recreational Therapy - Participation Participation: Monitors His/Her Own Leisure Time - Attendance Attendance: 3-5 times per week - Activities Leisure Activities: Reading - Socialization Level of Socialization: Initiates/interacts freely with care givers and peer - Diversional Time Diversional Time: reading, television - Assessment Assessment/Plan: Patient continues to require supervision for all functional transfers and ADLs overall secondary to decreased standing balance/tolerance and endurance. Patient is motivated for occupational therapy and demonstrates good UE strength indicating potential for increased independence with ADLs and functional activities. Patient will continue to benefit from skilled OT services 5-6x/week to address above deficits to increase independence for discharge. - Provider Therapist: Elana Amador, TECHNICAL SPEC #[id number] Nutrition - Current Diet Current Diet/ Supplement/ Feedings: Moderate consistent CHO - Appetite Percent Meal Consumed: 50-74% - Comments Comments: Care post TKR, Lovenox injection and safety precautions - Assessment/Goals/Time Frame Assessment/Goals/Time Frame: Already knows how to self-inject Lovenox. - Provider Provider: Kiana Moreno RD Case Management - Psychosocial Assessment Support Systems: Patient lives with spouse who is supportive and involved in care. James Velasco (spouse)- [phone] Psychological Interventions/Needs: Patient is alert and oriented x3 and able to verbalize needs. Patient is cooperative yet anxious. Discharge Concerns: Patient continues to require min-mod A for bed mobility, xfers and ambulation. Patient self limiting due to fatigue, anxiety and poor pain tolerance. Patient/Family Meeting: CM met with patient and rehab team. Intervention/Goal/Outcome:: 1. Goal: Mod I overall. 2. Plan: Home with skilled services- CM to refer to [facility]. 3. DME needs. 4. f/u appts. 5. continued emotional support. 6. Tentative discharge date: 05/14/2016 - Discharge Plan Home Services: [facility] - Provider Provider: RUBA Francisco LSW License Number: [id number] Rehabilitation Plan - Treatment Plan Treatment Plan: Physical Therapy, Occupational Therapy, Dietary, Patient/Family Education - Discharge Plan Estimated Date of Discharge: 05/14/16 Discharge to: Home
[2016-05-13 16:09] VITALS: RESP 20
--- NOTE | 2016-05-13 18:15 | CP.PCM.PN ---
Subjective - Date & Time of Evaluation Date of Evaluation: 05/13/16 Time of Evaluation: 13:00 - Subjective Subjective: Patient seen in room discussed patient maintaining good dietary habits was present pain is controlled continue current care will transition to outpatient therapy after the initial 1-2 weeks at home Objective - Vital Signs/Intake and Output Vital Signs (last 24 hours): Temp Pulse Resp BP Pulse Ox 96.0 F L 73 20 133/59 L 94 L 05/13/16 16:08 05/13/16 16:08 05/13/16 16:08 05/13/16 16:08 05/13/16 16:08 - Medications Medications: Current Medications Acetaminophen (Tylenol 325mg Tab) 650 mg PO Q4 PRN PRN Reason: Pain, Mild (1-3) Last Admin: 05/13/16 14:56 Dose: 650 mg Allopurinol (Zyloprim) 100 mg PO BID [facility] Last Admin: 05/13/16 17:40 Dose: 100 mg Atorvastatin Calcium (Lipitor) 10 mg PO [facility] Last Admin: 05/12/16 22:27 Dose: 10 mg Carvedilol (Coreg) 25 mg PO HS [facility] Last Admin: 05/12/16 22:27 Dose: 25 mg Carvedilol (Coreg) 12.5 mg PO DAILY [facility] Last Admin: 05/13/16 08:43 Dose: 12.5 mg Docusate Sodium (Colace) 100 mg PO BID [facility] Last Admin: 05/13/16 17:40 Dose: 100 mg Enoxaparin Sodium (Lovenox) 40 mg SC DAILY [facility] PRN Reason: Protocol Last Admin: 05/13/16 08:44 Dose: 40 mg Ferrous Sulfate (Feosol) 325 mg PO BID [facility] Last Admin: 05/13/16 17:40 Dose: 325 mg Furosemide (Lasix) 20 mg PO MWF [facility] Last Admin: 05/12/16 08:54 Dose: 20 mg Home Med (Patient's Own Medication) 1 unit PO DAILY [facility] Last Admin: 05/13/16 08:43 Dose: 1 unit Lactulose (Enulose) 20 gm PO DAILY PRN PRN Reason: Constipation Oxycodone/Acetaminophen (Percocet 5/325 Mg Tab) 1 tab PO Q4 PRN PRN Reason: Pain, moderate (4-7) Stop: 05/14/16 12:10 Pantoprazole Sodium (Protonix Ec Tab) 40 mg PO DAILY [facility] Last Admin: 05/13/16 08:44 Dose: 40 mg - Labs Labs: 05/11/16 05:30 05/02/16 06:50
[2016-05-14 08:38] VITALS: BP 139/60; PULSE 81; TEMP 98.4; O2SAT 97
[2016-05-14 08:58] LABS: HEMATOCRIT 33.5 % (34.0-47.0); MEAN CELL VOLUME 75.5 fl (81.0-99.0); MEAN CORPUSCULAR HEMOGLOBIN 23.5 pg (27.0-31.0); MEAN CORPUSCULAR HGB CONC 31.1 g/dL (33.0-37.0); WHITE BLOOD COUNT 6.4 K/uL (4.8-10.8)
[2016-05-14] MEDS: Pantoprazole 40 mg EC Tab PO SCH (09:27)
[2016-05-14] MEDS: Enoxaparin 40 mg Syringe SC SCH (09:27)
[2016-05-14] MEDS: VALSARTAN PO SCH (09:27)
--- NOTE | 2016-05-14 09:55 | CP.PCM.DIS ---
Provider - Provider Date of Admission: 05/01/16 13:49 Attending physician: Vinnie Carranza MD Primary care physician: Minnie Villar MD Consults: Dr Foster Time Spent in preparation of Discharge (in minutes): 35 Diagnosis - Discharge Diagnosis (1) Status post total knee replacement, right Status: Acute Comment: did well with rehab (2) HTN (hypertension) Status: Chronic Comment: BP was controlled. continue Coreg and Lasix (MWF) (3) DM2 (diabetes mellitus, type 2) Status: Chronic Comment: BS controlled. continue Victoza (4) Gout Status: Chronic Comment: continue Allopurinol 100mg PO BID (5) HLD (hyperlipidemia) Status: Chronic Comment: continue Lipitor Hospital Course - Lab Results Lab Results: Most Recent Lab Values WBC 6.4 K/uL (4.8-10.8) 05/14/16 08:51 RBC 4.44 Mil/uL (3.80-5.20) 05/14/16 08:51 Hgb 10.4 g/dL (12.0-16.0) L 05/14/16 08:51 Hct 33.5 % (34.0-47.0) L 05/14/16 08:51 MCV 75.5 fl (81.0-99.0) L 05/14/16 08:51 MCH 23.5 pg (27.0-31.0) L 05/14/16 08:51 MCHC 31.1 g/dL (33.0-37.0) L 05/14/16 08:51 RDW 18.0 % (11.5-14.5) H 05/14/16 08:51 Plt Count 386 K/uL (130-400) 05/14/16 08:51 MPV 8.0 fl (7.2-11.7) 05/05/16 06:33 Neut % (Auto) 61.0 % (50.0-75.0) 05/05/16 06:33 Lymph % (Auto) 22.0 % (20.0-40.0) 05/05/16 06:33 [place] % (Auto) 10.6 % (0.0-10.0) H 05/05/16 06:33 Eos % (Auto) 5.8 % (0.0-4.0) H 05/05/16 06:33 Baso % (Auto) 0.6 % (0.0-2.0) 05/05/16 06:33 Neut # 4.7 K/uL (1.8-7.0) 05/05/16 06:33 Lymph # 1.7 K/uL (1.0-4.3) 05/05/16 06:33 [place] # 0.8 K/uL (0.0-0.8) 05/05/16 06:33 Eos # 0.4 K/uL (0.0-0.7) 05/05/16 06:33 Baso # 0.0 K/uL (0.0-0.2) 05/05/16 06:33 Sodium 138 mmol/l (132-148) 05/02/16 06:50 Potassium 4.0 MMOL/L (3.6-5.0) 05/02/16 06:50 Chloride 96 mmol/L (98-107) L 05/02/16 06:50 Carbon Dioxide 32 mmol/L (22-30) H 05/02/16 06:50 Anion Gap 14 (10-20) 05/02/16 06:50 BUN 13 mg/dl (7-17) 05/02/16 06:50 Creatinine 0.6 mg/dL (0.7-1.2) L 05/02/16 06:50 Est GFR ( Amer) > 60 05/02/16 06:50 Est GFR (Non-Af Amer) > 60 05/02/16 06:50 POC Glucose (mg/dL) 115 mg/dL (65-110) H 05/14/16 07:01 Random Glucose 123 mg/dL (65-105) H 05/02/16 06:50 Hemoglobin A1c 6.2 % (4.2-6.5) 05/02/16 06:50 Uric Acid 4.1 mg/Dl (2.2-7.5) 05/02/16 06:50 Calcium 9.1 mg/dL (8.4-10.2) 05/02/16 06:50 - Hospital Course Hospital Course: 75 yo female with history of HTN, HLD, Sleep Apnea, DM2 and Gout had right TKR on April 29, 2016 after failing conservative management of OA of the right knee. She was admitted to acute rehab and did well therapy. Discharge Exam - Head Exam Head Exam: ATRAUMATIC, NORMAL INSPECTION, NORMOCEPHALIC - Eye Exam Eye Exam: Normal appearance - ENT Exam ENT Exam: Mucous Membranes Moist - Respiratory Exam Respiratory Exam: absent: Wheezes, Respiratory Distress - Cardiovascular Exam Cardiovascular Exam: REGULAR RHYTHM, +S1, +S2 - GI/Abdominal Exam GI & Abdominal Exam: Soft. absent: Tenderness - Rectal Exam Rectal Exam: Deferred - Neurological Exam Neurological exam: Alert, Oriented x3 - Psychiatric Exam Psychiatric exam: Normal Affect - Skin Skin Exam: Dry, Intact Discharge Plan - Discharge Medications Prescriptions: Enoxaparin [Lovenox] 40 mg SQ DAILY #14 syr Pantoprazole [Protonix EC Tab] 40 mg PO DAILY #14 ect - Follow Up Plan Condition: GOOD Disposition: HOME/ ROUTINE Instructions: Allopurinol (By mouth), Iron Supplements (By mouth), Furosemide ( By mouth), Acetaminophen (By mouth), Laxative, Stool Softeners (By mouth), Enoxaparin (By injection), Atorvastatin (By mouth), Carvedilol (By mouth), Pantoprazole (By mouth), Valsartan/Hydrochlorothiazide (By mouth), Knee Replacement (DC) Referrals: Minnie Villar MD [Primary Care Provider] -
== END 2016-05-14 12:31 | disposition home or self-care (01) | DRG 561 ==
PROC: F07Z9FZ Gait Training/Functional Ambulation Treatment using Assistive, Adaptive, Supportive or Protective Equipment (ICD-10-PCS; principal; 2016-05-01)
PROC: F07L6ZZ Therapeutic Exercise Treatment of Musculoskeletal System - Lower Back / Lower Extremity (ICD-10-PCS; 2016-05-01)
DX: Z47.1 Aftercare following joint replacement surgery (principal); E11.9 Type 2 diabetes mellitus without complications; D64.9 Anemia, unspecified; E78.5 Hyperlipidemia, unspecified; I10 Essential (primary) hypertension; G47.30 Sleep apnea, unspecified; Z96.651 Presence of right artificial knee joint; M10.9 Gout, unspecified; Z91.041 Radiographic dye allergy status

== ENCOUNTER 2018-03-21 11:10 | Inpatient (IN) | payer MEDICARE, BC ==
[2018-03-21 14:03] VITALS: BMI 45.3
[2018-03-21] MEDS ORDERED: MELATONIN PO PRN (15:04)
[2018-03-21] MEDS ORDERED: PYRIDOXINE HCL PO PRN (15:04)
[2018-03-21] MEDS ORDERED: Alum-Mag Hydrox-Simethicone Susp (30 mL) PO PRN (15:04)
--- NOTE | 2018-03-21 15:11 | CP.PCM.HP ---
<PedroJanie - Last Filed: 03/21/18 17:21> History of Present Illness - History of Present Illness History of Present Illness: 77 yo female with history of HTN, morbid obesity, pre-diabetes, gout, LE edema, esophageal stricture (s/p Dilation) who sustained a right femoral intertrocha nteric fracture with displacement of distal fracture fragment is s/p right femur intramedullary nail on 03/14/[address] Kramer. Patient was transferred from [facility] to [facility] for rehabilitation. Patient reports she sustained the fall at a wedding where she was dancing and she fell on her right hip. [facility] course: Post-op course complicated by cough and fever of 101.8 on 03/16/18, influenza A tested positive at that time and patient was started on Tamiflu 75mg po BID (03/17/18). She also had Acute anemia secondary to acute blood loss in the surgery. Patient did not require a transfusion at that time as she was asymptomatic and no evidence of bleeding. At this time, denies fevers, cough, chest pain, shortness of breath, abdominal pain, nausea, vomiting, and dysuria. PMH: arthritis, HTN, morbid obesity, LE edema, esophageal stricture (s/p dilation), prediabetes, diverticulosis, urinary incontinence, ELVIRA (does not use CPAP at home because she finds it uncomfortable) Surgical history: total right knee arthroplasty (2017), esophageal dilation, cholecystectomy, hysterectomy, joint replacement. ROS: negative except for stated above. Present on Admission - Present on Admission Any Indicators Present on Admission: No History of DVT/PE: No History of Uncontrolled Diabetes: No Review of Systems - Constitutional Constitutional: absent: Chills, Fatigue, Fever, Weakness - Cardiovascular Cardiovascular: Leg Edema (bilateral lower leg edema). absent: Chest Pain - Respiratory Respiratory: absent: Cough, Dyspnea on Exertion, Wheezing - Gastrointestinal Gastrointestinal: absent: Abdominal Pain, Vomiting - Genitourinary Genitourinary: Urinary Incontinence. absent: Dysuria, Urinary Frequency, Urinary Urgency - Musculoskeletal Musculoskeletal: As Per HPI Past Patient History - Infectious Disease Hx of Infectious Diseases: None - Tetanus Immunizations Tetanus Immunization: Unknown - Past Medical History & Family History Past Medical History?: Yes - Past Social History Smoking Status: Never Smoked Chewing Tobacco Use: No - CARDIAC Hx Hypercholesterolemia: Yes Hx Hypertension: Yes - PULMONARY Hx Sleep Apnea: Yes - NEUROLOGICAL Hx Neurological Disorder: No - HEENT Hx HEENT Problems: No - RENAL Hx Chronic Kidney Disease: No - ENDOCRINE/METABOLIC Hx Diabetes Mellitus Type 2: Yes (controlled by diet) - HEMATOLOGICAL/ONCOLOGICAL Hx Blood Disorders: No - INTEGUMENTARY Hx Dermatological Problems: No - MUSCULOSKELETAL/RHEUMATOLOGICAL Hx Gout: Yes Hx Osteoarthritis: Yes - GASTROINTESTINAL Hx Gastrointestinal Disorders: No - GENITOURINARY/GYNECOLOGICAL Hx Genitourinary Disorders: No - PSYCHIATRIC Hx Psychophysiologic Disorder: No - SURGICAL HISTORY Hx Surgeries: Yes Hx Cholecystectomy: Yes Other/Comment: carpal tunnel release - ANESTHESIA Hx Anesthesia: Yes Hx Anesthesia Reactions: No Meds Allergies/Adverse Reactions: Allergies Allergy/AdvReac Type Severity Reaction Status Date / Time iodine Allergy ITCHING Verified 05/11/16 12:54 Iodine and Iodide Containing Allergy RASH Verified 05/11/16 12:54 Produc Physical Exam - Constitutional Appears: Well, Non-toxic, No Acute Distress - Head Exam Head Exam: NORMAL INSPECTION - Eye Exam Eye Exam: Normal appearance - ENT Exam ENT Exam: Mucous Membranes Moist - Neck Exam Neck exam: Positive for: Normal Inspection - Respiratory Exam Respiratory Exam: Clear to Auscultation Bilateral, NORMAL BREATHING PATTERN. absent: Accessory Muscle Use, Chest Wall Tenderness, Decreased Breath Sounds, Prolonged Expiratory Phase, Rales, Rhonchi, Wheezes, Respiratory Distress, Stridor - Cardiovascular Exam Cardiovascular Exam: REGULAR RHYTHM, +S1, +S2 - GI/Abdominal Exam GI & Abdominal Exam: Normal Bowel Sounds, Soft. absent: Rebound, Rigid Additional comments: obese abdomen. Notable red rash (fungal rash) in between lower abdominal creases. - Extremities Exam Extremities exam: Positive for: normal inspection, pedal edema (+2 pedal edema bilaterally. ), pedal pulses present. Negative for: calf tenderness, tenderness Additional comments: Right hip and thigh ecchymosis noted. Three incisions- clean, dry, non- erythematous, not draining. - Back Exam Back exam: NORMAL INSPECTION - Neurological Exam Neurological exam: Alert, Oriented x3 - Skin Skin Exam: Dry, Intact, Normal Color, Warm Results - Labs Result Diagrams: 03/21/18 16:22 03/21/18 16:22 Assessment & Plan (1) Fracture of right hip requiring operative repair Status: Acute (2) Influenza A Status: Acute (3) Edema extremities Status: Acute (4) History of gout Status: Acute (5) Gout Status: Chronic (6) HLD (hyperlipidemia) Status: Chronic (7) HTN (hypertension) Status: Chronic (8) DVT prophylaxis Status: Acute (9) Fungal infection of skin of abdomen Status: Acute (10) DNR (do not resuscitate) Status: Acute - Assessment and Plan (Free Text) Assessment: 77 yo female with history of HTN, morbid obesity, pre-diabetes, gout, lower extr emity edema, esophageal stricture (s/p dilation) transferred from [facility] (located in [place]) after sustaining a right hip fracture is now s/p right femur intramedullary nail placement 03/14/18. Patient is here for physical therapy. Plan: 1. Right hip fracture secondary to mechanical fall s/p right femur intramedullary nail 03/14/18 - Patient admitted to rehab - Heart Healthy diet - Physical therapy consult - Pain medications prn as ordered- Tylenol, Tramadol, Oxycodone 2. Influenza A - Afebrile on admission - Last fever observed at [facility] was 101.8 degrees Fahrenheit 03/16/18 - Tamiflu 75 mg BID for 2 more days (ends 03/23/18) 3. Candidial infection of the abdominal skin. - continue Nystatin powder BID 4. Hypertension - Losartan/Hctz 50mg/12.5 daily - Coreg 12.5 bid - Atorvastatin 10mg daily - continue to monitor 5. Bilateral lower extremity edema (chronic lymphedema) - continue furosemide 20mg po daily 6. history of gout - continue allopurinol 100mg BID 7. DVT prophylaxis Lovenox 40mg sc daily until 04/19/18 9. Patient is DNR <Sandie Fox - Last Filed: 03/22/18 17:57> Results - Vital Signs Recent Vital Signs: Last Vital Signs Temp 97.7 F 03/22/18 07:53 Pulse 72 03/22/18 08:49 Resp 18 03/22/18 07:53 BP 157/70 H 03/22/18 08:51 Pulse Ox 94 L 03/22/18 08:47 - Labs Result Diagrams: 03/22/18 07:55 03/22/18 07:55 Labs: Laboratory Results - last 24 hr 03/22/18 03/22/18 07:55 07:55 WBC 5.6 RBC 3.64 L Hgb 8.9 L Hct 28.1 L MCV 77.4 L D MCH 24.4 L MCHC 31.5 L RDW 17.4 H Plt Count 269 Sodium 132 Potassium 3.6 Chloride 93 L Carbon Dioxide 32 H Anion Gap 11 BUN 12 Creatinine 0.6 L Est GFR ( Amer) > 60 Est GFR (Non-Af Amer) > 60 Random Glucose 143 H Calcium 8.5 Attending/Attestation - Attestation I have personally seen and examined this patient.: Yes I have fully participated in the care of the patient.: Yes I have reviewed all pertinent clinical information: Yes
[2018-03-21] MEDS ORDERED: oxyCODONE 5 mg Immediate Release Tab PO PRN (16:00)
[2018-03-21 17:08] LABS: BASO % 0.5 % (0.0-2.0); EOS # 0.1 K/uL (0.0-0.7); EOS % 2.8 % (0.0-4.0); HEMOGLOBIN 8.5 g/dL (12.0-16.0); LYMPH # 1.3 K/uL (1.0-4.3); LYMPH % 27.7 % (20.0-40.0); MEAN CELL VOLUME 75.3 fl (81.0-99.0); MEAN CORPUSCULAR HEMOGLOBIN 24.5 pg (27.0-31.0); MEAN CORPUSCULAR HGB CONC 32.5 g/dL (33.0-37.0); MEAN PLATELET VOLUME 7.9 fl (7.2-11.7); MONO # 0.5 K/uL (0.0-0.8); MONO % 11.3 % (0.0-10.0); NEUT # 2.7 K/uL (1.8-7.0); NEUT % 57.7 % (50.0-75.0); NRBC % 0.1 % (0.0-0.0); RBC 3.47 Mil/uL (3.80-5.20); RED CELL DISTRIBUTION WIDTH 17.1 % (11.5-14.5); WHITE BLOOD COUNT 4.7 K/uL (4.8-10.8)
[2018-03-21 17:20] LABS: BLOOD UREA NITROGEN 15 mg/dl (7-17); CALCIUM 8.5 mg/dL (8.4-10.2); GFR NON-AFRICAN AMERICAN > 60
[2018-03-21] MEDS ORDERED: Enoxaparin 40 mg Syringe SC SCH (18:00)
[2018-03-21] MEDS: Albuterol-Ipratrop 3 mg / 0.5 (3 ml) UD IH PRN (18:34)
[2018-03-21] MEDS: guaiFENesin 600 mg ER Tab PO SCH (20:38)
[2018-03-21] MEDS: Enoxaparin 40 mg Syringe SC SCH (20:38)
[2018-03-21] MEDS ORDERED: SIMVASTATIN PO SCH (22:00)
[2018-03-21] MEDS ORDERED: Potassium Chloride 20 mEq ER Tab PO ONE (23:35)
[2018-03-22] MEDS ORDERED: Potassium Chloride 20 mEq ER Tab PO ONE (06:19)
[2018-03-22 08:35] LABS: HEMOGLOBIN 8.9 g/dL (12.0-16.0); MEAN CELL VOLUME 77.4 fl (81.0-99.0); MEAN CORPUSCULAR HEMOGLOBIN 24.4 pg (27.0-31.0); MEAN CORPUSCULAR HGB CONC 31.5 g/dL (33.0-37.0); RBC 3.64 Mil/uL (3.80-5.20); RED CELL DISTRIBUTION WIDTH 17.4 % (11.5-14.5); WHITE BLOOD COUNT 5.6 K/uL (4.8-10.8)
[2018-03-22 08:42] LABS: BLOOD UREA NITROGEN 12 mg/dl (7-17); CALCIUM 8.5 mg/dL (8.4-10.2); GFR NON-AFRICAN AMERICAN > 60
[2018-03-22] MEDS: Cholecalciferol 400 Intl Units Tab PO SCH (08:48)
[2018-03-22] MEDS: HCTZ/Losartan 12.5/50 Tab PO SCH (08:51)
[2018-03-22] MEDS: guaiFENesin 600 mg ER Tab PO SCH ×2 (08:51→21:24)
[2018-03-22] MEDS: POLYETHYLENE GLYCOL 3350 17 GM/Dose PACKET PO SCH (08:51)
[2018-03-22] MEDS: Enoxaparin 40 mg Syringe SC SCH (08:54)
[2018-03-22] MEDS ORDERED: [UNRECOGNIZED DRUG - OTHER] PO SCH (09:00)
[2018-03-22] MEDS ORDERED: HYDROCHLOROTHIAZIDE PO SCH (09:00)
[2018-03-22] MEDS ORDERED: VALSARTAN PO SCH (09:00)
[2018-03-22] MEDS ORDERED: CARVEDILOL 40 MG PO SCH (09:00)
--- NOTE | 2018-03-22 12:55 | CP.PCM.PN ---
<Janie Vasquez - Last Filed: 03/22/18 13:11> Subjective - Date & Time of Evaluation Date of Evaluation: 03/22/18 Time of Evaluation: 12:55 - Subjective Subjective: Patient seen and examined at bedside. Reports feeling well. Denies any active complaints today. Reports BM and good appetite. States she is participating in t herapy and denies pain. Denies chest pain, shortness of breath, cough, congestion, abdominal pain, nausea, vomiting, dizziness, or diarrhea. Objective - Vital Signs/Intake and Output Vital Signs (last 24 hours): Temp Pulse Resp BP Pulse Ox 97.7 F 72 18 157/70 H 97 03/22/18 07:53 03/22/18 08:49 03/22/18 07:53 03/22/18 08:51 03/22/18 07:53 - Medications Medications: Current Medications Acetaminophen (Tylenol 325mg Tab) 650 mg PO Q6 PRN PRN Reason: Pain, Mild (1-3) Al Hydrox/Mg Hydrox/Simethicone (Maalox Plus 30 Ml) 30 ml PO Q4 PRN PRN Reason: Indigestion Albuterol Sulfate (Albuterol 0.083% Inhal Nikia (2.5 Mg/3 Ml) Ud) 2.5 mg INH Q4 PRN PRN Reason: Cough and congestion Albuterol/Ipratropium (Duoneb 3 Mg/0.5 Mg (3 Ml) Ud) 3 ml IH Q4 PRN PRN Reason: Shortness of Breath Last Admin: 03/21/18 18:34 Dose: 3 ml Allopurinol (Zyloprim) 100 mg PO BID [facility] Last Admin: 03/22/18 08:50 Dose: 100 mg Atorvastatin Calcium (Lipitor) 10 mg PO DIN [facility] Last Admin: 03/21/18 18:14 Dose: 10 mg Calcium Carbonate (Oscal) 1,000 mg PO DAILY [facility] Last Admin: 03/22/18 08:50 Dose: 1,000 mg Carvedilol (Coreg) 12.5 mg PO Q12 [facility] Last Admin: 03/22/18 08:49 Dose: 12.5 mg Docusate Sodium (Colace) 100 mg PO BID [facility] Last Admin: 03/22/18 08:46 Dose: 100 mg Enoxaparin Sodium (Lovenox) 40 mg SC DAILY [facility]; Protocol Last Admin: 03/22/18 08:54 Dose: 40 mg Furosemide (Lasix) 20 mg PO DAILY [facility] Last Admin: 03/22/18 08:51 Dose: 20 mg Guaifenesin (Mucinex La) 600 mg PO Q12 [facility] Last Admin: 03/22/18 08:51 Dose: 600 mg HCTZ/Losartan Potassium (Hyzaar 12.5 Mg-50 Mg) 1 tab PO DAILY [facility] Last Admin: 03/22/18 08:51 Dose: 1 tab Nystatin (Nystop Topical Powder) 1 applic TOP BID [facility] Last Admin: 03/22/18 08:50 Dose: 1 applic Oseltamivir Phosphate (Tamiflu Cap) 75 mg PO BID [facility]; Protocol Stop: 03/23/18 23:59 Last Admin: 03/22/18 08:48 Dose: 75 mg Oxycodone HCl (Oxycodone Immediate Release Tab) 2.5 mg PO Q6 PRN PRN Reason: Pain, severe (8-10) Polyethylene Glycol (Miralax) 17 gm PO DAILY [facility] Last Admin: 03/22/18 08:51 Dose: 17 gm Sennosides (Senokot Tab) 8.6 mg PO HS [facility] Last Admin: 03/21/18 21:26 Dose: Not Given Tramadol HCl (Ultram) 50 mg PO Q6H PRN PRN Reason: Pain, moderate (4-7) Last Admin: 03/22/18 10:23 Dose: 50 mg Vitamin D (Vitamin D 400 Intl Units Tab) 800 intlu PO DAILY [facility] Last Admin: 03/22/18 08:48 Dose: 800 intlu - Labs Labs: 03/22/18 07:55 03/22/18 07:55 - Constitutional Appears: Well, Non-toxic - Eye Exam Pupil Exam: NORMAL ACCOMODATION - ENT Exam ENT Exam: Mucous Membranes Moist - Respiratory Exam Respiratory Exam: Clear to Ausculation Bilateral, NORMAL BREATHING PATTERN. absent: Accessory Muscle Use, Chest Wall Tenderness, Decreased Breath Sounds, Prolonged Expiratory Phase, Rales, Rhonchi, Wheezes, Respiratory Distress, Stridor - Cardiovascular Exam Cardiovascular Exam: REGULAR RHYTHM, +S1, +S2 - GI/Abdominal Exam GI & Abdominal Exam: Soft, Normal Bowel Sounds. absent: Distended, Firm, Guarding, Rigid, Tenderness Additional comments: obese abdomen. - Extremities Exam Extremities Exam: Normal Capillary Refill, Normal Inspection, Pedal Edema (+2 pitting pedal edema bilaterally (chronic lymphedema)). absent: Calf Tenderness, Joint Swelling, Tenderness Additional comments: Clean incision scars (x3) on right hip and thigh. Clean, dry, non-erythematous, no drainage. Large healing ecchymosis noted on right hip and thigh. - Neurological Exam Neurological Exam: Alert, Awake Neuro motor strength exam: Left Upper Extremity: 5, Right Upper Extremity: 5, Left Lower Extremity: 5, Right Lower Extremity: 3 - Skin Skin Exam: Dry, Intact, Normal Color, Warm Assessment and Plan (1) Fracture of right hip requiring operative repair Status: Acute (2) Influenza A Status: Acute (3) Edema extremities Status: Acute (4) History of gout Status: Acute (5) Gout Status: Chronic (6) HLD (hyperlipidemia) Status: Chronic (7) HTN (hypertension) Status: Chronic (8) DVT prophylaxis Status: Acute (9) Fungal infection of skin of abdomen Status: Acute (10) DNR (do not resuscitate) Status: Acute - Assessment and Plan (Free Text) Assessment: 77 yo female with history of HTN, morbid obesity, pre-diabetes, gout, lower extremity edema, esophageal stricture (s/p dilation) transferred from [facility] (located in [place]) s/p right femur intramedullary nail placement 03/14/18. Patient is here for physical therapy. Plan: 1. Right hip fracture secondary to mechanical fall s/p right femur intramedullary nail 03/14/18 - Continue therapy - Pain medications prn as ordered- Tylenol, Tramadol, Oxycodone 2. Influenza A - Afebrile - Last fever observed at [facility] was 101.8 degrees Fahrenheit 03/16/18 - Tamiflu 75 mg BID for 1 more day (ends 03/23/18) 3. Candidial infection of the abdominal skin. - continue Nystatin powder BID 4. Hypertension - Losartan/Hctz 50mg/12.5 daily - Coreg 12.5 bid - Atorvastatin 10mg daily - continue to monitor 5. Bilateral lower extremity edema (chronic lymphedema) - continue furosemide 20mg po daily 6. history of gout - continue allopurinol 100mg BID 7. DVT prophylaxis Lovenox 40mg sc daily until 04/19/18 9. Patient is DNR <Ruddy,Sandie K - Last Filed: 03/22/18 17:54> Objective - Vital Signs/Intake and Output Vital Signs (last 24 hours): Temp Pulse Resp BP Pulse Ox 97.7 F 72 18 157/70 H 94 L 03/22/18 07:53 03/22/18 08:49 03/22/18 07:53 03/22/18 08:51 03/22/18 08:47 - Medications Medications: Current Medications Acetaminophen (Tylenol 325mg Tab) 650 mg PO Q4 PRN PRN Reason: Pain, Mild (1-3) Al Hydrox/Mg Hydrox/Simethicone (Maalox Plus 30 Ml) 30 ml PO Q4 PRN PRN Reason: Indigestion Albuterol Sulfate (Albuterol 0.083% Inhal Nikia (2.5 Mg/3 Ml) Ud) 2.5 mg INH Q4 PRN PRN Reason: Cough and congestion Albuterol/Ipratropium (Duoneb 3 Mg/0.5 Mg (3 Ml) Ud) 3 ml IH Q4 PRN PRN Reason: Shortness of Breath Last Admin: 03/22/18 15:37 Dose: 3 ml Allopurinol (Zyloprim) 100 mg PO BID [facility] Last Admin: 03/22/18 17:33 Dose: 100 mg Atorvastatin Calcium (Lipitor) 10 mg PO DIN [facility] Last Admin: 03/22/18 17:29 Dose: 10 mg Calcium Carbonate (Oscal) 1,000 mg PO DAILY [facility] Last Admin: 03/22/18 08:50 Dose: 1,000 mg Carvedilol (Coreg) 12.5 mg PO Q12 [facility] Last Admin: 03/22/18 08:49 Dose: 12.5 mg Docusate Sodium (Colace) 100 mg PO BID [facility] Last Admin: 03/22/18 17:29 Dose: 100 mg Enoxaparin Sodium (Lovenox) 40 mg SC DAILY [facility]; Protocol Last Admin: 03/22/18 08:54 Dose: 40 mg Furosemide (Lasix) 20 mg PO DAILY [facility] Last Admin: 03/22/18 08:51 Dose: 20 mg Guaifenesin (Mucinex La) 600 mg PO Q12 [facility] Last Admin: 03/22/18 08:51 Dose: 600 mg HCTZ/Losartan Potassium (Hyzaar 12.5 Mg-50 Mg) 1 tab PO DAILY [facility] Last Admin: 03/22/18 08:51 Dose: 1 tab Nystatin (Nystop Topical Powder) 1 applic TOP BID [facility] Last Admin: 03/22/18 17:30 Dose: 1 applic Oxycodone HCl (Oxycodone Immediate Release Tab) 2.5 mg PO Q4 PRN PRN Reason: Pain, severe (8-10) Polyethylene Glycol (Miralax) 17 gm PO DAILY [facility] Last Admin: 03/22/18 08:51 Dose: 17 gm Sennosides (Senokot Tab) 8.6 mg PO HS [facility] Last Admin: 03/21/18 21:26 Dose: Not Given Tramadol HCl (Ultram) 50 mg PO Q4 PRN PRN Reason: Pain, moderate (4-7) Last Admin: 03/22/18 15:41 Dose: 50 mg Vitamin D (Vitamin D 400 Intl Units Tab) 800 intlu PO DAILY [facility] Last Admin: 03/22/18 08:48 Dose: 800 intlu - Labs Labs: 03/22/18 07:55 03/22/18 07:55 Attending/Attestation - Attestation I have personally seen and examined this patient.: Yes I have fully participated in the care of the patient.: Yes I have reviewed all pertinent clinical information, including history, physical exam and plan: Yes
[2018-03-22] MEDS: Albuterol-Ipratrop 3 mg / 0.5 (3 ml) UD IH PRN ×2 (15:37→21:35)
[2018-03-22] MEDS ORDERED: oxyCODONE 5 mg Immediate Release Tab PO PRN (17:05)
--- NOTE | 2018-03-22 18:07 | CP.PCM.CON ---
History of Present Illness - History of Present Illness History of Present Illness: Dr Foster PMR consultation on Annika Velasco, born 1940 who has been admitted to [facility] for acute inpatient rehabilitation following a fall with resultant right hip fracture which required ORIF. Now stable. Had been here in the past for TKR rehabilitation. Review of Systems - EENT Eyes: absent: Change in Vision Ears: absent: Ear Discharge, Ear Pain Nose/Mouth/Throat: absent: Nasal Discharge - Cardiovascular Cardiovascular: absent: Chest Pain, Chest Pain at Rest, Diaphoresis - Respiratory Respiratory: absent: Cough, Hemoptysis - Gastrointestinal Gastrointestinal: absent: Bloating, Constipation - Integumentary Integumentary: absent: Bleeding Lesions - Neurological Neurological: absent: Abnormal Movements, Dizziness, Lack of Coordination - Psychiatric Psychiatric: absent: Anxiety Past Patient History - Infectious Disease Hx of Infectious Diseases: None - Tetanus Immunizations Tetanus Immunization: Unknown - Past Medical History & Family History Past Medical History?: Yes - Past Social History Smoking Status: Never Smoked Chewing Tobacco Use: No Drugs: Denies Home Situation {Lives}: With Family (6 steps) - CARDIAC Hx Hypercholesterolemia: Yes Hx Hypertension: Yes - PULMONARY Hx Sleep Apnea: Yes - NEUROLOGICAL Hx Neurological Disorder: No - HEENT Hx HEENT Problems: No - RENAL Hx Chronic Kidney Disease: No - ENDOCRINE/METABOLIC Hx Diabetes Mellitus Type 2: Yes (controlled by diet) - HEMATOLOGICAL/ONCOLOGICAL Hx Blood Disorders: No - INTEGUMENTARY Hx Dermatological Problems: No - MUSCULOSKELETAL/RHEUMATOLOGICAL Hx Gout: Yes Hx Osteoarthritis: Yes - GASTROINTESTINAL Hx Gastrointestinal Disorders: No - GENITOURINARY/GYNECOLOGICAL Hx Genitourinary Disorders: No - PSYCHIATRIC Hx Psychophysiologic Disorder: No - SURGICAL HISTORY Hx Surgeries: Yes Hx Cholecystectomy: Yes Other/Comment: carpal tunnel release - ANESTHESIA Hx Anesthesia: Yes Hx Anesthesia Reactions: No Meds Allergies/Adverse Reactions: Allergies Allergy/AdvReac Type Severity Reaction Status Date / Time iodine Allergy ITCHING Verified 05/11/16 12:54 Iodine and Iodide Containing Allergy RASH Verified 05/11/16 12:54 Produc - Medications Medications: Current Medications Acetaminophen (Tylenol 325mg Tab) 650 mg PO Q4 PRN PRN Reason: Pain, Mild (1-3) Al Hydrox/Mg Hydrox/Simethicone (Maalox Plus 30 Ml) 30 ml PO Q4 PRN PRN Reason: Indigestion Albuterol Sulfate (Albuterol 0.083% Inhal Nikia (2.5 Mg/3 Ml) Ud) 2.5 mg INH Q4 PRN PRN Reason: Cough and congestion Albuterol/Ipratropium (Duoneb 3 Mg/0.5 Mg (3 Ml) Ud) 3 ml IH Q4 PRN PRN Reason: Shortness of Breath Last Admin: 03/22/18 15:37 Dose: 3 ml Allopurinol (Zyloprim) 100 mg PO BID [facility] Last Admin: 03/22/18 17:33 Dose: 100 mg Atorvastatin Calcium (Lipitor) 10 mg PO DIN [facility] Last Admin: 03/22/18 17:29 Dose: 10 mg Calcium Carbonate (Oscal) 1,000 mg PO DAILY [facility] Last Admin: 03/22/18 08:50 Dose: 1,000 mg Carvedilol (Coreg) 12.5 mg PO Q12 [facility] Last Admin: 03/22/18 08:49 Dose: 12.5 mg Docusate Sodium (Colace) 100 mg PO BID [facility] Last Admin: 03/22/18 17:29 Dose: 100 mg Enoxaparin Sodium (Lovenox) 40 mg SC DAILY [facility]; Protocol Last Admin: 03/22/18 08:54 Dose: 40 mg Furosemide (Lasix) 20 mg PO DAILY [facility] Last Admin: 03/22/18 08:51 Dose: 20 mg Guaifenesin (Mucinex La) 600 mg PO Q12 [facility] Last Admin: 03/22/18 08:51 Dose: 600 mg HCTZ/Losartan Potassium (Hyzaar 12.5 Mg-50 Mg) 1 tab PO DAILY [facility] Last Admin: 03/22/18 08:51 Dose: 1 tab Nystatin (Nystop Topical Powder) 1 applic TOP BID [facility] Last Admin: 03/22/18 17:30 Dose: 1 applic Oxycodone HCl (Oxycodone Immediate Release Tab) 2.5 mg PO Q4 PRN PRN Reason: Pain, severe (8-10) Polyethylene Glycol (Miralax) 17 gm PO DAILY [facility] Last Admin: 03/22/18 08:51 Dose: 17 gm Sennosides (Senokot Tab) 8.6 mg PO HS [facility] Last Admin: 03/21/18 21:26 Dose: Not Given Tramadol HCl (Ultram) 50 mg PO Q4 PRN PRN Reason: Pain, moderate (4-7) Last Admin: 03/22/18 15:41 Dose: 50 mg Vitamin D (Vitamin D 400 Intl Units Tab) 800 intlu PO DAILY [facility] Last Admin: 03/22/18 08:48 Dose: 800 intlu Physical Exam - Constitutional Appears: Non-toxic, No Acute Distress - Head Exam Head Exam: ATRAUMATIC, NORMAL INSPECTION, NORMOCEPHALIC - Eye Exam Eye Exam: EOMI - ENT Exam ENT Exam: Mucous Membranes Moist - Respiratory Exam Respiratory Exam: NORMAL BREATHING PATTERN - Cardiovascular Exam Cardiovascular Exam: REGULAR RHYTHM - GI/Abdominal Exam GI & Abdominal Exam: Distended. absent: Firm - Neurological Exam Neurological exam: Alert, CN II-XII Intact, Oriented x3 - Psychiatric Exam Psychiatric exam: Normal Affect, Normal Mood - Skin Skin Exam: Warm Results - Vital Signs Recent Vital Signs: Last Vital Signs Temp 97.7 F 03/22/18 07:53 Pulse 72 03/22/18 08:49 Resp 18 03/22/18 07:53 BP 157/70 H 03/22/18 08:51 Pulse Ox 94 L 03/22/18 08:47 - Labs Result Diagrams: 03/22/18 07:55 03/22/18 07:55 Labs: Laboratory Results - last 24 hr 03/22/18 03/22/18 07:55 07:55 WBC 5.6 RBC 3.64 L Hgb 8.9 L Hct 28.1 L MCV 77.4 L D MCH 24.4 L MCHC 31.5 L RDW 17.4 H Plt Count 269 Sodium 132 Potassium 3.6 Chloride 93 L Carbon Dioxide 32 H Anion Gap 11 BUN 12 Creatinine 0.6 L Est GFR ( Amer) > 60 Est GFR (Non-Af Amer) > 60 Random Glucose 143 H Calcium 8.5 Assessment & Plan - Assessment and Plan (Free Text) Assessment: 77 year old female s/p right hip ORIF following a fall and fracture PT/OT to continue to help increase functional independence Team conference for d/c planning Pain: controlled Vascular: no evidence of DVT. DVT prophylaxis GI: No evidence of constipation or diarrhea Patient is an excellent acute rehabilitation candidate and will have focused pain management, wound care, PT, OT and recreational therapy to help facilitate a safe and appropriate d/c plan impairment code 08.11
--- NOTE | 2018-03-22 18:21 | PCM.OPOC ---
Physiatry Overall Plan of Care - Overall Plan of Care Estimated Length of Stay in Weeks: 3 Rehab Impairment: Mobility, Gait, Balance, Coordination Etiologic Diagnosis: Hip/Knee Surgery Rehab/Medical Prognosis: Fair - Anticipated Interventions Physical Therapy:: Yes Occupational Therapy:: Yes Speech Therapy:: No Recreational Therapy:: Yes - Therapy Goals Bed Mobility: Supervision Ambulation: Supervision Functional Positional Changes:: Supervision - Discharge Plan Identification of Barriers to Discharge: Home Situation Discharge Destination: Home
[2018-03-23] MEDS: guaiFENesin 600 mg ER Tab PO SCH ×2 (08:22→21:37)
[2018-03-23] MEDS: Enoxaparin 40 mg Syringe SC SCH (08:23)
[2018-03-23] MEDS: HCTZ/Losartan 12.5/50 Tab PO SCH (08:24)
[2018-03-23] MEDS: Cholecalciferol 400 Intl Units Tab PO SCH (08:25)
[2018-03-23] MEDS: POLYETHYLENE GLYCOL 3350 17 GM/Dose PACKET PO SCH (08:25)
[2018-03-23] MEDS: Critic-Aid Clear AF TOP SCH ×2 (08:26→16:15)
[2018-03-23] MEDS: Albuterol-Ipratrop 3 mg / 0.5 (3 ml) UD IH PRN ×2 (08:58→17:44)
--- NOTE | 2018-03-23 13:07 | PCM.PSYTMC ---
Acute Rehab Team Conference - - Vital Signs: Vital Signs (Last 8 Hours): Vital Signs 03/23/18 03/23/18 08:24 08:40 Temperature 97.2 F L Pulse Rate 75 75 Respiratory 22 Rate Blood Pressure 138/58 L 138/58 L O2 Sat by Pulse 95 Oximetry Pain: 0 - Precautions: Precautions: Fall Prevention - Medications/Other Issues: Comment: -Abdominal fold fungal infection - on Critic-Aid topical BID. -Right hip I/L with Dermabond. -Bladder urgency - on Purewick at night. - Consults: Comment: -Dr. Foster - Physiatry - Skin: Incision Site: Right hip/thigh/knee Incision: Well Approximated Incision Line Treatment: Approximated with Dermabond - Toileting: Toileting: Maximal Assistance - Bladder Management: Bladder Pattern: Urgency Voiding Method: Bedside Commode, Bedpan, Purewick (Female external catheter) Bladder Management: Maximal Assistance - Transfers: Transfers: Maximal Assistance - ADL's: ADL's: Moderate Assistance - Pain Management: Other Intervention:: -Tylenol 650 mg Q4 PRN Mild Pain (1-3). -Ultram 50 mg Q4 P RN Moderate Pain (4-7). -Oxycodone IR 5 mg PRN Severe Pain (8-10) - Patient/Family Teaching: Other Intervention:: -Teach patient and family about Hip ORIF, Safety precautions, Weight bearing status, Medication Regimen, Pain management, Wound and skin care. - Goals/Time Frame: Comment: Keep patient safe and manage pain until next team conference or discharge. - Provider: Registered Nurse:: Melissa Grossman Physical Therapy - Bed Mobility Bed Mobility: Maximum Assistance - Transfers Wheelchair to Mat: Maximum Assistance Sit to Stand: Moderate Assistance - Ambulation Level of Assistance: Verbal Cues, Moderate Assistance Distance (ft.): 8 Assistive Devices: Rolling Walker - Stair Negotiation Stairs: Level of Assistance: Not Tested - Standing Balance Static Stand: Contact Guard Assist - Pain Pain (assessed during therapy session): 2 Alleviating Techniques: Medication, Ice Comment: R hip; minimal complaints of pain - Insight/Carryover Insight/Carryover: Good - Patient/Family Education Comment: POC, safety - Assessment/Plan Assessment: Mrs. Velasco admitted to [facility] acute rehab s/p intramedullary nailing to R femur to repair fx. The pt presents with impaired BLE strength, standing balance, and endurance resulting in decreased (I) with functional mobility skills. Pt currently requires max A for bed mobility, mod/max A for transfers, and mod A for ambulating short distance with RW. Pt previously I/mod I with functional mobility skills. Pt will benefit from skilled PT interventions to address deficits, reduce fall risk, and maximize functional independence. Re commend d/c home home services following complete acute rehab stay. - Goals Timeframe: 3 weeks Goals: Sit < > supine mod I. Sit < > stand transfers mod I with RW. Pt will ambulate 200 ft with RW mod I. Pt will ascend/descend 6 stairs with supervision - Provider Physical Therapist:: Linsey Dominguez Occupational Therapy - Arousal/Attention/Orientation Level of Consciousness: Awake, Alert Patient Orientation: Person, Place, Time - ADL/IADL Self Feeding: Set-up Help Grooming: Set-up Help Dressing-Upper Ext: Supervision Dressing-Lower Ext: Moderate Assistance, Maximum Assistance - Sitting Balance Static Sitting: Independent without upper extremity support Dynamic Sitting: Reaches across midline, Reaches out of base of support, Requires supervision - Transfers Wheelchair to Bed Transfers: Minimal Assistance Toilet Transfers: Minimal Assistance, Moderate Assistance Comment: tub transfer to be assesed - Wheelchair Management Level of Assistance: Moderate Assistance, Maximum Assistance Distance (ft.): 50 - Upper Extremity Status Right Upper Extremity Comment: AROM and strength WFLs Left Upper Extremity Comment: AROM and strength WFLs - Pain Pain (assessed during therapy session): 7 Alleviating Techniques: Medication, Position Change Comment: pain in R hip/groin region - Insight/Carryover Insight/Carryover: Good - Patient/Family Education Comment: Role of OT, goals , plan of care, dme/ae recovery - Assessment/Plan Assessment: Patient is a 77 yo female presenting to [facility] s/p mechanical fall resulting in R ORIF placement. PRECAUTIONS:FALLS. patient currently presents with impaired activity tolerance, impaired dynamic standing balance, pain in R groin/hip region 09/01, impaired knowledge of adaptive/compensatory techniques. These aforementioned defecits impact pt's ability to complete adls, transfers and mobility safely and effectively. recommend skilled IP OT services 5-6x/week to max pt's functional I - Goals Timeframe: 2 weeks Comment: mod I transfers/mobility. mod I toileting routine. supervision iadls. supervision tub transfer - Provider Occupational Therapist:: Karli Greene License Number: [id number] Recreational Therapy - Participation Participation: Participates in Individual and/or Group Sessions, Monitors His/Her Own Leisure Time - Attendance Attendance: Daily - Activities Leisure Activities: Television - Socialization Level of Socialization: Initiates/interacts freely with care givers and peer - Diversional Time Diversional Time: reading, socializing - Assessment Assessment/Plan: Pt was re-oriented to benefits and purpose of participating in recreation therapy sessions offered on unit. Pt would benefit from participating in either independent, group, or 1:1 sessions to improve diversion from pain and anxiety. Pt would benefit from leisure education for relaxation techniques and resources pt can utilize in the community when discharge. Will encourage pt to participate in sessions throughout stay on unit. Problems Currently Limiting Participation: pain, anxiety, decrease activity tolerance level Goals and Time Frame: Pt will be encouraged to participate in 1:1 and group recreation therapy sessions 3-5x week to improve activity tolerance level, arousal level, leisure awareness level, and diversion from pain by date of discharge. - Provider Therapist: Elana Baird Nutrition - Current Diet Current Diet/Supplement/Feedings: Heart healthy diet - Appetite Percent Meal Consumed: 75-100% - Assessment/Goals/Time Frame Assessments/Goals/Time Frame: To follow as per nutrition protocol - Provider Provider: Kiana Moreno Case Management - Psychosocial Assessment Support Systems: James Knox (spouse)- [phone] Psychological Interventions/Needs: Patient is AAOx3 Discharge Concerns: Patient had 6 steps to enter the home Patient/Family Meeting: CM met with patient and rehab team Intervention/Goal/Outcome: 1. Goal: Mod I 2. Plan: home with VNS 3. f/u appts 4. DME needs 5. emotional support - Discharge Plan Discharge Plan: Home with services Home Services: [facility] - Provider Provider: Sharon Dunn License Number: [id number] Rehabilitation Plan - Treatment Plan Treatment Plan: Physical Therapy, Occupational Therapy, Dietary, Pain Management, Wound Care, Patient/Family Education - Discharge Plan Discharge to: Subacute (TBD)
--- NOTE | 2018-03-23 13:25 | CP.PCM.PN ---
Subjective - Date & Time of Evaluation Date of Evaluation: 03/23/18 Time of Evaluation: 13:24 - Subjective Subjective: Patient seen in the room doing well denies sob/cp admits she is nervous will need to make significant gains to be a safe d/c home possible ROBERTO on d/c but this will be determined by next week Objective - Vital Signs/Intake and Output Vital Signs (last 24 hours): Temp Pulse Resp BP Pulse Ox 97.2 F L 75 22 138/58 L 95 03/23/18 08:40 03/23/18 08:40 03/23/18 08:40 03/23/18 08:40 03/23/18 08:40 - Medications Medications: Current Medications Acetaminophen (Tylenol 325mg Tab) 650 mg PO Q4 PRN PRN Reason: Pain, Mild (1-3) Al Hydrox/Mg Hydrox/Simethicone (Maalox Plus 30 Ml) 30 ml PO Q4 PRN PRN Reason: Indigestion Albuterol Sulfate (Albuterol 0.083% Inhal Nikia (2.5 Mg/3 Ml) Ud) 2.5 mg INH Q4 PRN PRN Reason: Cough and congestion Albuterol/Ipratropium (Duoneb 3 Mg/0.5 Mg (3 Ml) Ud) 3 ml IH Q4 PRN PRN Reason: Shortness of Breath Last Admin: 03/23/18 08:58 Dose: 3 ml Allopurinol (Zyloprim) 100 mg PO BID [facility] Last Admin: 03/23/18 08:25 Dose: 100 mg Atorvastatin Calcium (Lipitor) 10 mg PO DIN [facility] Last Admin: 03/22/18 17:29 Dose: 10 mg Calcium Carbonate (Oscal) 1,000 mg PO DAILY [facility] Last Admin: 03/23/18 08:22 Dose: 1,000 mg Carvedilol (Coreg) 12.5 mg PO Q12 [facility] Last Admin: 03/23/18 08:24 Dose: 12.5 mg Docusate Sodium (Colace) 100 mg PO BID [facility] Last Admin: 03/23/18 08:23 Dose: 100 mg Enoxaparin Sodium (Lovenox) 40 mg SC DAILY [facility]; Protocol Last Admin: 03/23/18 08:23 Dose: 40 mg Furosemide (Lasix) 20 mg PO DAILY [facility] Last Admin: 03/23/18 08:24 Dose: 20 mg Guaifenesin (Mucinex La) 600 mg PO Q12 [facility] Last Admin: 03/23/18 08:22 Dose: 600 mg HCTZ/Losartan Potassium (Hyzaar 12.5 Mg-50 Mg) 1 tab PO DAILY [facility] Last Admin: 03/23/18 08:24 Dose: 1 tab Miconazole Nitrate (Critic-Aid Clear Af) 1 applic TOP BID [facility] Last Admin: 03/23/18 08:26 Dose: 1 applic Nystatin (Nystop Topical Powder) 1 applic TOP BID [facility] Last Admin: 03/23/18 08:26 Dose: 1 applic Oxycodone HCl (Oxycodone Immediate Release Tab) 2.5 mg PO Q4 PRN PRN Reason: Pain, severe (8-10) Polyethylene Glycol (Miralax) 17 gm PO DAILY [facility] Last Admin: 03/23/18 08:25 Dose: 17 gm Sennosides (Senokot Tab) 8.6 mg PO HS [facility] Last Admin: 03/22/18 21:29 Dose: Not Given Tramadol HCl (Ultram) 50 mg PO Q4 PRN PRN Reason: Pain, moderate (4-7) Last Admin: 03/23/18 08:52 Dose: 50 mg Vitamin D (Vitamin D 400 Intl Units Tab) 800 intlu PO DAILY [facility] Last Admin: 03/23/18 08:25 Dose: 800 intlu - Labs Labs: 03/22/18 07:55 03/22/18 07:55
[2018-03-24] MEDS: POLYETHYLENE GLYCOL 3350 17 GM/Dose PACKET PO SCH (08:11)
[2018-03-24] MEDS: Enoxaparin 40 mg Syringe SC SCH (08:11)
[2018-03-24] MEDS: Critic-Aid Clear AF TOP SCH (08:11)
[2018-03-24] MEDS: HCTZ/Losartan 12.5/50 Tab PO SCH (08:11)
[2018-03-24] MEDS: Cholecalciferol 400 Intl Units Tab PO SCH (08:12)
[2018-03-24] MEDS: guaiFENesin 600 mg ER Tab PO SCH ×2 (08:12→21:21)
[2018-03-24] MEDS: Albuterol-Ipratrop 3 mg / 0.5 (3 ml) UD IH PRN ×2 (11:56→16:39)
--- NOTE | 2018-03-24 13:34 | CP.PCM.PN ---
Subjective - Date & Time of Evaluation Date of Evaluation: 03/24/18 Time of Evaluation: 10:20 - Subjective Subjective: Patient seen and examined. Denied any complaint. Admitted doing well. Objective - Vital Signs/Intake and Output Vital Signs (last 24 hours): Temp Pulse Resp BP Pulse Ox 98.0 F 72 19 129/48 L 96 03/24/18 09:08 03/24/18 09:08 03/24/18 09:08 03/24/18 09:08 03/24/18 09:08 - Medications Medications: Current Medications Acetaminophen (Tylenol 325mg Tab) 650 mg PO Q4 PRN PRN Reason: Pain, Mild (1-3) Al Hydrox/Mg Hydrox/Simethicone (Maalox Plus 30 Ml) 30 ml PO Q4 PRN PRN Reason: Indigestion Albuterol Sulfate (Albuterol 0.083% Inhal Nikia (2.5 Mg/3 Ml) Ud) 2.5 mg INH Q4 PRN PRN Reason: Cough and congestion Albuterol/Ipratropium (Duoneb 3 Mg/0.5 Mg (3 Ml) Ud) 3 ml IH Q4 PRN PRN Reason: Shortness of Breath Last Admin: 03/24/18 11:56 Dose: 3 ml Allopurinol (Zyloprim) 100 mg PO BID [facility] Last Admin: 03/24/18 08:12 Dose: 100 mg Atorvastatin Calcium (Lipitor) 10 mg PO DIN [facility] Last Admin: 03/23/18 16:15 Dose: 10 mg Calcium Carbonate (Oscal) 1,000 mg PO DAILY [facility] Last Admin: 03/24/18 08:12 Dose: 1,000 mg Carvedilol (Coreg) 12.5 mg PO Q12 [facility] Last Admin: 03/24/18 08:11 Dose: 12.5 mg Docusate Sodium (Colace) 100 mg PO BID [facility] Last Admin: 03/24/18 08:10 Dose: 100 mg Enoxaparin Sodium (Lovenox) 40 mg SC DAILY [facility]; Protocol Last Admin: 03/24/18 08:11 Dose: 40 mg Furosemide (Lasix) 20 mg PO DAILY [facility] Last Admin: 03/24/18 08:11 Dose: 20 mg Guaifenesin (Mucinex La) 600 mg PO Q12 [facility] Last Admin: 03/24/18 08:12 Dose: 600 mg HCTZ/Losartan Potassium (Hyzaar 12.5 Mg-50 Mg) 1 tab PO DAILY [facility] Last Admin: 03/24/18 08:11 Dose: 1 tab Miconazole Nitrate (Critic-Aid Clear Af) 1 applic TOP BID [facility] Last Admin: 03/24/18 08:11 Dose: 1 applic Nystatin (Nystop Topical Powder) 1 applic TOP BID [facility] Last Admin: 03/24/18 08:12 Dose: 1 applic Oxycodone HCl (Oxycodone Immediate Release Tab) 2.5 mg PO Q4 PRN PRN Reason: Pain, severe (8-10) Polyethylene Glycol (Miralax) 17 gm PO DAILY [facility] Last Admin: 03/24/18 08:11 Dose: 17 gm Sennosides (Senokot Tab) 8.6 mg PO HS [facility] Last Admin: 03/23/18 21:37 Dose: 8.6 mg Tramadol HCl (Ultram) 50 mg PO Q4 PRN PRN Reason: Pain, moderate (4-7) Last Admin: 03/24/18 08:40 Dose: 50 mg Vitamin D (Vitamin D 400 Intl Units Tab) 800 intlu PO DAILY [facility] Last Admin: 03/24/18 08:12 Dose: 800 intlu - Labs Labs: 03/22/18 07:55 03/22/18 07:55 - Constitutional Appears: No Acute Distress - Head Exam Head Exam: ATRAUMATIC - Eye Exam Eye Exam: absent: Scleral icterus - ENT Exam ENT Exam: Mucous Membranes Moist - Neck Exam Neck Exam: absent: Meningismus - Respiratory Exam Respiratory Exam: absent: Rales, Rhonchi, Wheezes, Respiratory Distress - Cardiovascular Exam Cardiovascular Exam: REGULAR RHYTHM, +S1, +S2 - GI/Abdominal Exam GI & Abdominal Exam: Soft. absent: Tenderness - Rectal Exam Rectal Exam: Deferred - Neurological Exam Neurological Exam: Alert, Oriented x3 - Psychiatric Exam Psychiatric exam: Normal Affect - Skin Skin Exam: Dry, Intact Assessment and Plan - Assessment and Plan (Free Text) Assessment: 77 yo female with history of HTN, Gout and HLD had intramedullary nailing of right femural fracture on 03/14/2018 at [facility]. She was transferred to TCU on 03/21/2018 for continuation of PT. 1. S/P Intramedullary Nailing of Right Femural Fracture tolerating and doing well with therapy continue pain management with Tramadol and Tylenol 2. Influenza A afebrile and asymptomatic received Tamiflu for 3 days 3. Tinea Cruris continue Nystation powder BID 4. HTN BP stable continue Losartan/HCTZ and Coreg 5. Chronic Lymphedema continue Lasix 20mg PO daily 6. Gout continue Allopurinol 100mg PO BID 7. DVT prophylaxis on Lovenox 40mg SC daily
--- NOTE | 2018-03-24 17:49 | CP.PCM.PN ---
Subjective - Date & Time of Evaluation Date of Evaluation: 03/24/18 Time of Evaluation: 17:48 - Subjective Subjective: Patient seen in the room doing ok ambulated 25' today which is a good improvement pain is controlled less anxious had a BM continue current care Objective - Vital Signs/Intake and Output Vital Signs (last 24 hours): Temp Pulse Resp BP Pulse Ox 98.0 F 72 19 129/48 L 96 03/24/18 09:08 03/24/18 09:08 03/24/18 09:08 03/24/18 09:08 03/24/18 09:08 - Medications Medications: Current Medications Acetaminophen (Tylenol 325mg Tab) 650 mg PO Q4 PRN PRN Reason: Pain, Mild (1-3) Al Hydrox/Mg Hydrox/Simethicone (Maalox Plus 30 Ml) 30 ml PO Q4 PRN PRN Reason: Indigestion Albuterol Sulfate (Albuterol 0.083% Inhal Nikia (2.5 Mg/3 Ml) Ud) 2.5 mg INH Q4 PRN PRN Reason: Cough and congestion Albuterol/Ipratropium (Duoneb 3 Mg/0.5 Mg (3 Ml) Ud) 3 ml IH Q4 PRN PRN Reason: Shortness of Breath Last Admin: 03/24/18 16:39 Dose: 3 ml Allopurinol (Zyloprim) 100 mg PO BID [facility] Last Admin: 03/24/18 16:38 Dose: 100 mg Atorvastatin Calcium (Lipitor) 10 mg PO DIN [facility] Last Admin: 03/24/18 16:38 Dose: 10 mg Calcium Carbonate (Oscal) 1,000 mg PO DAILY [facility] Last Admin: 03/24/18 08:12 Dose: 1,000 mg Carvedilol (Coreg) 12.5 mg PO Q12 [facility] Last Admin: 03/24/18 08:11 Dose: 12.5 mg Docusate Sodium (Colace) 100 mg PO BID [facility] Last Admin: 03/24/18 16:37 Dose: 100 mg Enoxaparin Sodium (Lovenox) 40 mg SC DAILY [facility]; Protocol Last Admin: 03/24/18 08:11 Dose: 40 mg Furosemide (Lasix) 20 mg PO DAILY [facility] Last Admin: 03/24/18 08:11 Dose: 20 mg Guaifenesin (Mucinex La) 600 mg PO Q12 [facility] Last Admin: 03/24/18 08:12 Dose: 600 mg HCTZ/Losartan Potassium (Hyzaar 12.5 Mg-50 Mg) 1 tab PO DAILY [facility] Last Admin: 03/24/18 08:11 Dose: 1 tab Home Med (Patient's Own Medication) 1 unit PO DAILY [facility] Oxycodone HCl (Oxycodone Immediate Release Tab) 2.5 mg PO Q4 PRN PRN Reason: Pain, severe (8-10) Polyethylene Glycol (Miralax) 17 gm PO DAILY [facility] Last Admin: 03/24/18 08:11 Dose: 17 gm Sennosides (Senokot Tab) 8.6 mg PO HS [facility] Last Admin: 03/23/18 21:37 Dose: 8.6 mg Tramadol HCl (Ultram) 50 mg PO Q4 PRN PRN Reason: Pain, moderate (4-7) Last Admin: 03/24/18 13:37 Dose: 50 mg Vitamin D (Vitamin D 400 Intl Units Tab) 800 intlu PO DAILY [facility] Last Admin: 03/24/18 08:12 Dose: 800 intlu - Labs Labs: 03/22/18 07:55 03/22/18 07:55
[2018-03-25 07:17] LABS: HEMOGLOBIN 8.9 g/dL (12.0-16.0); MEAN CELL VOLUME 75.8 fl (81.0-99.0); MEAN CORPUSCULAR HEMOGLOBIN 24.9 pg (27.0-31.0); MEAN CORPUSCULAR HGB CONC 32.8 g/dL (33.0-37.0); RBC 3.57 Mil/uL (3.80-5.20); RED CELL DISTRIBUTION WIDTH 17.5 % (11.5-14.5); WHITE BLOOD COUNT 6.2 K/uL (4.8-10.8)
[2018-03-25 07:33] LABS: BLOOD UREA NITROGEN 13 mg/dl (7-17); CALCIUM 8.8 mg/dL (8.4-10.2); GFR NON-AFRICAN AMERICAN > 60
[2018-03-25] MEDS: Enoxaparin 40 mg Syringe SC SCH (08:31)
[2018-03-25] MEDS: guaiFENesin 600 mg ER Tab PO SCH ×2 (08:32→21:14)
[2018-03-25] MEDS: POLYETHYLENE GLYCOL 3350 17 GM/Dose PACKET PO SCH (08:33)
[2018-03-25] MEDS: HCTZ/Losartan 12.5/50 Tab PO SCH (08:33)
[2018-03-25] MEDS: Cholecalciferol 400 Intl Units Tab PO SCH (08:33)
[2018-03-25] MEDS: CLOTRIMAZOLE PO SCH (08:35)
[2018-03-25] MEDS: BETAMETHASONE DIPROPIONATE PO SCH (08:35)
[2018-03-25] MEDS: Albuterol-Ipratrop 3 mg / 0.5 (3 ml) UD IH PRN ×2 (12:09→16:28)
[2018-03-26] MEDS: Albuterol-Ipratrop 3 mg / 0.5 (3 ml) UD IH PRN ×2 (07:37→17:42)
--- NOTE | 2018-03-26 08:36 | CP.PCM.CON ---
History of Present Illness - History of Present Illness History of Present Illness: Pt is a 77 year old female admitted to [facility] and referred to the assembly instructions writer for evaluation. Med history postiive for recent hip surgery, past knee surgery, reflux, HTN, sleep apnea and obesity. Pt reported falling at a wedding resu lting in her hip fx/surgery. Social History: pt lives with her of 40+ years. She has four children and five grandchildren. Pt reported very positive relationships with her children and grandchildren. She spoke of being conerned for her of late due to his cold/congestion. Ed.Voc: pt raised in [place], pt graduated HS. Pt worked for [employer]. Pt reported a very active life with voluneerism and outings with friends prior to admission. Pt denied a psych history, pt negative for a history of alc.sub abuse. Pt spoke of the shame of her fall, though motivation not to make it a catastrophe. Motivation toward healing and return to life evident. MSE: Pt alert, orieted x3, relevant/coherent, no psychosis, affect constricted, mood anxious regarding her return to life, no si no hi ideation. Dx: Adjustment dx Plan: Continued Sup therapy. Past Patient History - Infectious Disease Hx of Infectious Diseases: None - Tetanus Immunizations Tetanus Immunization: Unknown - Past Medical History & Family History Past Medical History?: Yes - Past Social History Smoking Status: Never Smoked Chewing Tobacco Use: No Drugs: Denies Home Situation {Lives}: With Family (6 steps) - CARDIAC Hx Hypercholesterolemia: Yes Hx Hypertension: Yes - PULMONARY Hx Sleep Apnea: Yes - NEUROLOGICAL Hx Neurological Disorder: No - HEENT Hx HEENT Problems: No - RENAL Hx Chronic Kidney Disease: No - ENDOCRINE/METABOLIC Hx Diabetes Mellitus Type 2: Yes (controlled by diet) - HEMATOLOGICAL/ONCOLOGICAL Hx Blood Disorders: No - INTEGUMENTARY Hx Dermatological Problems: No - MUSCULOSKELETAL/RHEUMATOLOGICAL Hx Gout: Yes Hx Osteoarthritis: Yes - GASTROINTESTINAL Hx Gastrointestinal Disorders: No - GENITOURINARY/GYNECOLOGICAL Hx Genitourinary Disorders: No - PSYCHIATRIC Hx Psychophysiologic Disorder: No - SURGICAL HISTORY Hx Surgeries: Yes Hx Cholecystectomy: Yes Other/Comment: carpal tunnel release - ANESTHESIA Hx Anesthesia: Yes Hx Anesthesia Reactions: No Meds Allergies/Adverse Reactions: Allergies Allergy/AdvReac Type Severity Reaction Status Date / Time iodine Allergy ITCHING Verified 05/11/16 12:54 Iodine and Iodide Containing Allergy RASH Verified 03/23/18 11:29 Produc - Medications Medications: Current Medications Acetaminophen (Tylenol 325mg Tab) 650 mg PO Q4 PRN PRN Reason: Pain, Mild (1-3) Last Admin: 03/25/18 11:57 Dose: 650 mg Al Hydrox/Mg Hydrox/Simethicone (Maalox Plus 30 Ml) 30 ml PO Q4 PRN PRN Reason: Indigestion Albuterol Sulfate (Albuterol 0.083% Inhal Nikia (2.5 Mg/3 Ml) Ud) 2.5 mg INH Q4 PRN PRN Reason: Cough and congestion Albuterol/Ipratropium (Duoneb 3 Mg/0.5 Mg (3 Ml) Ud) 3 ml IH Q4 PRN PRN Reason: Shortness of Breath Last Admin: 03/26/18 07:37 Dose: 3 ml Allopurinol (Zyloprim) 100 mg PO BID [facility] Last Admin: 03/25/18 17:02 Dose: 100 mg Atorvastatin Calcium (Lipitor) 10 mg PO DIN [facility] Last Admin: 03/25/18 17:02 Dose: 10 mg Calcium Carbonate (Oscal) 1,000 mg PO DAILY [facility] Last Admin: 03/25/18 08:33 Dose: 1,000 mg Carvedilol (Coreg) 12.5 mg PO Q12 [facility] Last Admin: 03/25/18 21:13 Dose: 12.5 mg Docusate Sodium (Colace) 100 mg PO BID [facility] Last Admin: 03/25/18 17:01 Dose: 100 mg Enoxaparin Sodium (Lovenox) 40 mg SC DAILY [facility]; Protocol Last Admin: 03/25/18 08:31 Dose: 40 mg Furosemide (Lasix) 20 mg PO DAILY [facility] Last Admin: 03/25/18 08:32 Dose: 20 mg Guaifenesin (Mucinex La) 600 mg PO Q12 [facility] Last Admin: 03/25/18 21:14 Dose: 600 mg HCTZ/Losartan Potassium (Hyzaar 12.5 Mg-50 Mg) 1 tab PO DAILY [facility] Last Admin: 03/25/18 08:33 Dose: 1 tab Home Med (Patient's Own Medication) 1 unit PO DAILY [facility] Last Admin: 03/25/18 08:35 Dose: 1 unit Oxycodone HCl (Oxycodone Immediate Release Tab) 2.5 mg PO Q4 PRN PRN Reason: Pain, severe (8-10) Polyethylene Glycol (Miralax) 17 gm PO DAILY [facility] Last Admin: 03/25/18 08:33 Dose: 17 gm Sennosides (Senokot Tab) 8.6 mg PO HS [facility] Last Admin: 03/25/18 21:14 Dose: 8.6 mg Tramadol HCl (Ultram) 50 mg PO Q4 PRN PRN Reason: Pain, moderate (4-7) Last Admin: 03/25/18 21:14 Dose: 50 mg Vitamin D (Vitamin D 400 Intl Units Tab) 800 intlu PO DAILY [facility] Last Admin: 03/25/18 08:33 Dose: 800 intlu Results - Vital Signs Recent Vital Signs: Last Vital Signs Temp 97.9 F 03/25/18 20:37 Pulse 82 03/25/18 21:13 Resp 20 03/25/18 20:37 BP 126/63 03/25/18 21:13 Pulse Ox 94 L 03/25/18 20:37 - Labs Result Diagrams: 03/25/18 07:00 03/25/18 07:00
[2018-03-26] MEDS: BETAMETHASONE DIPROPIONATE PO SCH (09:00)
[2018-03-26] MEDS: CLOTRIMAZOLE PO SCH (09:00)
[2018-03-26] MEDS: guaiFENesin 600 mg ER Tab PO SCH (09:10)
[2018-03-26] MEDS: POLYETHYLENE GLYCOL 3350 17 GM/Dose PACKET PO SCH (09:10)
[2018-03-26] MEDS: Enoxaparin 40 mg Syringe SC SCH (09:10)
[2018-03-26] MEDS: Cholecalciferol 400 Intl Units Tab PO SCH (09:10)
[2018-03-26] MEDS: HCTZ/Losartan 12.5/50 Tab PO SCH (09:20)
--- NOTE | 2018-03-26 15:23 | CP.PCM.PN ---
Subjective - Date & Time of Evaluation Date of Evaluation: 03/26/18 Time of Evaluation: 13:45 - Subjective Subjective: Patient seen and examined. Complained of dry cough and tickling in her throat. Objective - Vital Signs/Intake and Output Vital Signs (last 24 hours): Temp Pulse Resp BP Pulse Ox 97.3 F L 85 23 145/64 96 03/26/18 08:42 03/26/18 09:20 03/26/18 08:42 03/26/18 09:20 03/26/18 08:42 - Medications Medications: Current Medications Acetaminophen (Tylenol 325mg Tab) 650 mg PO Q4 PRN PRN Reason: Pain, Mild (1-3) Last Admin: 03/25/18 11:57 Dose: 650 mg Al Hydrox/Mg Hydrox/Simethicone (Maalox Plus 30 Ml) 30 ml PO Q4 PRN PRN Reason: Indigestion Albuterol Sulfate (Albuterol 0.083% Inhal Nikia (2.5 Mg/3 Ml) Ud) 2.5 mg INH Q4 PRN PRN Reason: Cough and congestion Albuterol/Ipratropium (Duoneb 3 Mg/0.5 Mg (3 Ml) Ud) 3 ml IH Q4 PRN PRN Reason: Shortness of Breath Last Admin: 03/26/18 07:37 Dose: 3 ml Allopurinol (Zyloprim) 100 mg PO BID [facility] Last Admin: 03/26/18 09:11 Dose: 100 mg Atorvastatin Calcium (Lipitor) 10 mg PO DIN [facility] Last Admin: 03/25/18 17:02 Dose: 10 mg Calcium Carbonate (Oscal) 1,000 mg PO DAILY [facility] Last Admin: 03/26/18 09:11 Dose: 1,000 mg Carvedilol (Coreg) 12.5 mg PO Q12 [facility] Last Admin: 03/26/18 09:20 Dose: 12.5 mg Docusate Sodium (Colace) 100 mg PO BID [facility] Last Admin: 03/26/18 09:21 Dose: 100 mg Enoxaparin Sodium (Lovenox) 40 mg SC DAILY [facility]; Protocol Last Admin: 03/26/18 09:10 Dose: 40 mg Furosemide (Lasix) 20 mg PO DAILY [facility] Last Admin: 03/26/18 09:17 Dose: 20 mg Guaifenesin (Mucinex La) 600 mg PO Q12 [facility] Last Admin: 03/26/18 09:10 Dose: 600 mg Guaifenesin/Dextromethorphan (Robitussin Dm) 10 ml PO Q6 PRN PRN Reason: Cough HCTZ/Losartan Potassium (Hyzaar 12.5 Mg-50 Mg) 1 tab PO DAILY [facility] Last Admin: 03/26/18 09:20 Dose: 1 tab Home Med (Patient's Own Medication) 1 unit PO DAILY [facility] Last Admin: 03/25/18 08:35 Dose: 1 unit Loratadine (Claritin) 10 mg PO DAILY [facility] Oxycodone HCl (Oxycodone Immediate Release Tab) 2.5 mg PO Q4 PRN PRN Reason: Pain, severe (8-10) Polyethylene Glycol (Miralax) 17 gm PO DAILY [facility] Last Admin: 03/26/18 09:10 Dose: 17 gm Sennosides (Senokot Tab) 8.6 mg PO HS [facility] Last Admin: 03/25/18 21:14 Dose: 8.6 mg Tramadol HCl (Ultram) 50 mg PO Q4 PRN PRN Reason: Pain, moderate (4-7) Last Admin: 03/26/18 14:10 Dose: 50 mg Vitamin D (Vitamin D 400 Intl Units Tab) 800 intlu PO DAILY [facility] Last Admin: 03/26/18 09:10 Dose: 800 intlu - Labs Labs: 03/25/18 07:00 03/25/18 07:00 - Constitutional Appears: No Acute Distress - Head Exam Head Exam: ATRAUMATIC - Eye Exam Eye Exam: absent: Scleral icterus - ENT Exam ENT Exam: Mucous Membranes Moist - Neck Exam Neck Exam: absent: Meningismus - Respiratory Exam Respiratory Exam: absent: Rales, Rhonchi, Wheezes, Respiratory Distress - Cardiovascular Exam Cardiovascular Exam: REGULAR RHYTHM, +S1, +S2 - GI/Abdominal Exam GI & Abdominal Exam: Soft. absent: Tenderness - Rectal Exam Rectal Exam: Deferred - Neurological Exam Neurological Exam: Alert, Oriented x3 - Psychiatric Exam Psychiatric exam: Normal Affect - Skin Skin Exam: Dry, Intact Assessment and Plan - Assessment and Plan (Free Text) Assessment: 77 yo female with history of HTN, Gout and HLD had intramedullary nailing of right femural fracture on 03/14/2018 at [facility]. She was transferred to TCU on 03/21/2018 for continuation of PT. 1. S/P Intramedullary Nailing of Right Femural Fracture continue PT/OT continue pain management with Tramadol and Tylenol 2. Influenza A afebrile and asymptomatic received Tamiflu for 3 days 3. Tinea Cruris patient has her own medication for tinea cruris non-formulary to be applied BID (Clotrimazole/Betamethasone cream) 4. HTN BP stable continue Losartan/HCTZ and Coreg 5. Chronic Lymphedema continue Lasix 20mg PO daily 6. Gout continue Allopurinol 100mg PO BID 7. DVT prophylaxis on Lovenox 40mg SC daily
[2018-03-26] MEDS: BETAMETHASONE TOP SCH (17:09)
[2018-03-26] MEDS: CLOTRIMAZOLE TOP SCH (17:09)
[2018-03-27] MEDS: BETAMETHASONE TOP SCH ×2 (09:23→17:30)
[2018-03-27] MEDS: Enoxaparin 40 mg Syringe SC SCH (09:23)
[2018-03-27] MEDS: CLOTRIMAZOLE TOP SCH ×2 (09:23→17:30)
[2018-03-27] MEDS: POLYETHYLENE GLYCOL 3350 17 GM/Dose PACKET PO SCH (09:24)
[2018-03-27] MEDS: HCTZ/Losartan 12.5/50 Tab PO SCH (09:25)
[2018-03-27] MEDS: Cholecalciferol 400 Intl Units Tab PO SCH (09:26)
[2018-03-27] MEDS: Albuterol-Ipratrop 3 mg / 0.5 (3 ml) UD IH PRN ×2 (10:12→16:24)
--- NOTE | 2018-03-27 11:58 | CP.PCM.PN ---
Subjective - Date & Time of Evaluation Date of Evaluation: 03/27/18 Time of Evaluation: 11:56 - Subjective Subjective: Annika Velasco, born 1940 who has been admitted to [facility] for acute inpatient rehabilitation following a fall with resultant right hip fracture which required ORIF. Now stable. Had been here in the past for TKR rehabilitation. She has begun to make much better progress and has even been on the practice steps. She remains motivated and is an ideal rehab patient Objective - Vital Signs/Intake and Output Vital Signs (last 24 hours): Temp Pulse Resp BP Pulse Ox 98.2 F 73 20 130/80 95 03/27/18 07:30 03/27/18 09:25 03/27/18 07:30 03/27/18 09:25 03/27/18 07:30 - Medications Medications: Current Medications Acetaminophen (Tylenol 325mg Tab) 650 mg PO Q4 PRN PRN Reason: Pain, Mild (1-3) Last Admin: 03/25/18 11:57 Dose: 650 mg Al Hydrox/Mg Hydrox/Simethicone (Maalox Plus 30 Ml) 30 ml PO Q4 PRN PRN Reason: Indigestion Albuterol Sulfate (Albuterol 0.083% Inhal Niika (2.5 Mg/3 Ml) Ud) 2.5 mg INH Q4 PRN PRN Reason: Cough and congestion Albuterol/Ipratropium (Duoneb 3 Mg/0.5 Mg (3 Ml) Ud) 3 ml IH Q4 PRN PRN Reason: Shortness of Breath Last Admin: 03/27/18 10:12 Dose: 3 ml Allopurinol (Zyloprim) 100 mg PO BID [facility] Last Admin: 03/27/18 09:23 Dose: 100 mg Atorvastatin Calcium (Lipitor) 10 mg PO DIN [facility] Last Admin: 03/26/18 17:10 Dose: 10 mg Calcium Carbonate (Oscal) 1,000 mg PO DAILY [facility] Last Admin: 03/27/18 09:24 Dose: 1,000 mg Carvedilol (Coreg) 12.5 mg PO Q12 [facility] Last Admin: 03/27/18 09:25 Dose: 12.5 mg Docusate Sodium (Colace) 100 mg PO BID [facility] Last Admin: 03/27/18 09:25 Dose: 100 mg Enoxaparin Sodium (Lovenox) 40 mg SC DAILY [facility]; Protocol Last Admin: 03/27/18 09:23 Dose: 40 mg Furosemide (Lasix) 20 mg PO DAILY [facility] Last Admin: 03/27/18 09:24 Dose: 20 mg Guaifenesin/Dextromethorphan (Robitussin Dm) 10 ml PO Q6 PRN PRN Reason: Cough HCTZ/Losartan Potassium (Hyzaar 12.5 Mg-50 Mg) 1 tab PO DAILY [facility] Last Admin: 03/27/18 09:25 Dose: 1 tab Home Med (Patient's Own Medication) 1 unit TOP BID [facility] Last Admin: 03/27/18 09:23 Dose: 1 unit Loratadine (Claritin) 10 mg PO DAILY [facility] Last Admin: 03/27/18 09:26 Dose: 10 mg Oxycodone HCl (Oxycodone Immediate Release Tab) 2.5 mg PO Q4 PRN PRN Reason: Pain, severe (8-10) Polyethylene Glycol (Miralax) 17 gm PO DAILY [facility] Last Admin: 03/27/18 09:24 Dose: 17 gm Sennosides (Senokot Tab) 8.6 mg PO HS [facility] Last Admin: 03/26/18 21:08 Dose: 8.6 mg Tramadol HCl (Ultram) 50 mg PO Q4 PRN PRN Reason: Pain, moderate (4-7) Last Admin: 03/27/18 10:05 Dose: 50 mg Vitamin D (Vitamin D 400 Intl Units Tab) 800 intlu PO DAILY [facility] Last Admin: 03/27/18 09:26 Dose: 800 intlu - Labs Labs: 03/25/18 07:00 03/25/18 07:00 - Constitutional Appears: Well, Non-toxic, No Acute Distress - Head Exam Head Exam: ATRAUMATIC, NORMAL INSPECTION, NORMOCEPHALIC - Eye Exam Eye Exam: EOMI - ENT Exam ENT Exam: Mucous Membranes Moist - Respiratory Exam Respiratory Exam: NORMAL BREATHING PATTERN - Cardiovascular Exam Cardiovascular Exam: REGULAR RHYTHM - GI/Abdominal Exam GI & Abdominal Exam: Normal Bowel Sounds - Neurological Exam Neurological Exam: Alert, CN II-XII Intact, Oriented x3 - Psychiatric Exam Psychiatric exam: Normal Affect, Normal Mood - Skin Skin Exam: Warm Assessment and Plan - Assessment and Plan (Free Text) Assessment: Annika Chaudharyashley, born 1940 who has been admitted to [facility] for acute inpatient rehabilitation following a fall with resultant right hip fracture which required ORIF. Now stable. Had been here in the past for TKR rehabilitation. PT/OT to continue to help increase functional independence Team conference for d/c planning Pain: controlled Vascular: no evidence of DVT on LMWH GI: No evidence of constipation or diarrhea Patient continues to be an excellent acute rehabilitation candidate and will have continued PT, OT and recreational therapy to help facilitate a safe and appropriate d/c plan
[2018-03-28 05:38] LABS: HEMOGLOBIN 8.7 g/dL (12.0-16.0); MEAN CELL VOLUME 75.7 fl (81.0-99.0); MEAN CORPUSCULAR HEMOGLOBIN 24.3 pg (27.0-31.0); MEAN CORPUSCULAR HGB CONC 32.1 g/dL (33.0-37.0); RBC 3.57 Mil/uL (3.80-5.20); RED CELL DISTRIBUTION WIDTH 17.6 % (11.5-14.5); WHITE BLOOD COUNT 5.8 K/uL (4.8-10.8)
[2018-03-28 05:44] LABS: BLOOD UREA NITROGEN 11 mg/dl (7-17); CALCIUM 8.7 mg/dL (8.4-10.2); GFR NON-AFRICAN AMERICAN > 60
[2018-03-28] MEDS: Cholecalciferol 400 Intl Units Tab PO SCH (08:48)
[2018-03-28] MEDS: POLYETHYLENE GLYCOL 3350 17 GM/Dose PACKET PO SCH (08:49)
[2018-03-28] MEDS: HCTZ/Losartan 12.5/50 Tab PO SCH (08:49)
[2018-03-28] MEDS: BETAMETHASONE TOP SCH ×2 (08:50→16:37)
[2018-03-28] MEDS: CLOTRIMAZOLE TOP SCH ×2 (08:50→16:37)
[2018-03-28] MEDS: Albuterol-Ipratrop 3 mg / 0.5 (3 ml) UD IH PRN (09:31)
[2018-03-28] MEDS: Enoxaparin 40 mg Syringe SC SCH (16:33)
[2018-03-28] MEDS: Albuterol 0.083% Inhal Sol (2.5 mg/3 mL) UD INH PRN (16:37)
[2018-03-28] MEDS: Albuterol-Ipratrop 3 mg / 0.5 (3 ml) UD IH SCH ×2 (19:38)
[2018-03-28] MEDS: guaiFENesin DM 200 mg-20 mg/10 ml UD PO PRN (21:13)
[2018-03-29] MEDS: Albuterol-Ipratrop 3 mg / 0.5 (3 ml) UD IH SCH ×5 (01:12→20:25)
[2018-03-29] MEDS: Enoxaparin 40 mg Syringe SC SCH (08:34)
[2018-03-29] MEDS: HCTZ/Losartan 12.5/50 Tab PO SCH (08:34)
[2018-03-29] MEDS: POLYETHYLENE GLYCOL 3350 17 GM/Dose PACKET PO SCH (08:34)
[2018-03-29] MEDS: Cholecalciferol 400 Intl Units Tab PO SCH (08:35)
[2018-03-29] MEDS: guaiFENesin DM 200 mg-20 mg/10 ml UD PO PRN ×2 (08:35→18:03)
[2018-03-29] MEDS: CLOTRIMAZOLE TOP SCH ×2 (10:08→16:07)
[2018-03-29] MEDS: BETAMETHASONE TOP SCH ×2 (10:08→16:07)
[2018-03-29] MEDS ORDERED: Potassium Chloride 20 mEq ER Tab PO ONE (13:35)
--- NOTE | 2018-03-29 15:43 | CP.PCM.PN ---
Subjective - Date & Time of Evaluation Date of Evaluation: 03/29/18 Time of Evaluation: 14:15 - Subjective Subjective: Patient seen in the hallway ambulating with the aid of a walker and therapist. Claimed she was doing much better although admitted she still need the pain medication. Objective - Vital Signs/Intake and Output Vital Signs (last 24 hours): Temp Pulse Resp BP Pulse Ox 97.9 F 76 20 132/53 L 96 03/29/18 09:36 03/29/18 09:36 03/29/18 09:36 03/29/18 09:36 03/29/18 09:36 - Medications Medications: Current Medications Acetaminophen (Tylenol 325mg Tab) 650 mg PO Q4 PRN PRN Reason: Pain, Mild (1-3) Last Admin: 03/25/18 11:57 Dose: 650 mg Al Hydrox/Mg Hydrox/Simethicone (Maalox Plus 30 Ml) 30 ml PO Q4 PRN PRN Reason: Indigestion Albuterol Sulfate (Albuterol 0.083% Inhal Nikia (2.5 Mg/3 Ml) Ud) 2.5 mg INH Q4 PRN PRN Reason: Cough and congestion Last Admin: 03/28/18 16:37 Dose: 2.5 mg Albuterol/Ipratropium (Duoneb 3 Mg/0.5 Mg (3 Ml) Ud) 3 ml IH RQ6 [facility] Last Admin: 03/29/18 14:30 Dose: Not Given Allopurinol (Zyloprim) 100 mg PO BID [facility] Last Admin: 03/29/18 08:36 Dose: 100 mg Atorvastatin Calcium (Lipitor) 10 mg PO DIN [facility] Last Admin: 03/28/18 16:32 Dose: 10 mg Calcium Carbonate (Oscal) 1,000 mg PO DAILY [facility] Last Admin: 03/29/18 08:35 Dose: 1,000 mg Carvedilol (Coreg) 12.5 mg PO Q12 [facility] Last Admin: 03/29/18 08:33 Dose: 12.5 mg Docusate Sodium (Colace) 100 mg PO BID [facility] Last Admin: 03/29/18 08:33 Dose: 100 mg Enoxaparin Sodium (Lovenox) 40 mg SC DAILY [facility]; Protocol Last Admin: 03/29/18 08:34 Dose: 40 mg Furosemide (Lasix) 20 mg PO DAILY [facility] Last Admin: 03/29/18 08:34 Dose: 20 mg Guaifenesin/Dextromethorphan (Robitussin Dm) 10 ml PO Q6 PRN PRN Reason: Cough Last Admin: 03/29/18 08:35 Dose: 10 ml HCTZ/Losartan Potassium (Hyzaar 12.5 Mg-50 Mg) 1 tab PO DAILY [facility] Last Admin: 03/29/18 08:34 Dose: 1 tab Home Med (Patient's Own Medication) 1 unit TOP BID [facility] Last Admin: 03/29/18 10:08 Dose: 1 unit Loratadine (Claritin) 10 mg PO DAILY [facility] Last Admin: 03/29/18 08:32 Dose: 10 mg Oxycodone HCl (Oxycodone Immediate Release Tab) 2.5 mg PO Q4 PRN PRN Reason: Pain, severe (8-10) Polyethylene Glycol (Miralax) 17 gm PO DAILY [facility] Last Admin: 03/29/18 08:34 Dose: Not Given Sennosides (Senokot Tab) 8.6 mg PO HS [facility] Last Admin: 03/28/18 21:14 Dose: 8.6 mg Tramadol HCl (Ultram) 50 mg PO Q4 PRN PRN Reason: Pain, moderate (4-7) Last Admin: 03/29/18 12:37 Dose: 50 mg Vitamin D (Vitamin D 400 Intl Units Tab) 800 intlu PO DAILY [facility] Last Admin: 03/29/18 08:35 Dose: 800 intlu - Labs Labs: 03/28/18 05:00 03/28/18 05:29 - Constitutional Appears: No Acute Distress - Head Exam Head Exam: ATRAUMATIC - Eye Exam Eye Exam: absent: Scleral icterus - ENT Exam ENT Exam: Mucous Membranes Moist - Neck Exam Neck Exam: absent: Meningismus - Respiratory Exam Respiratory Exam: absent: Rales, Rhonchi, Wheezes, Respiratory Distress - Cardiovascular Exam Cardiovascular Exam: REGULAR RHYTHM, +S1, +S2 - GI/Abdominal Exam GI & Abdominal Exam: Soft. absent: Tenderness - Rectal Exam Rectal Exam: Deferred - Neurological Exam Neurological Exam: Alert, Oriented x3 - Psychiatric Exam Psychiatric exam: Normal Affect - Skin Skin Exam: Dry, Intact Assessment and Plan - Assessment and Plan (Free Text) Assessment: 77 yo female with history of HTN, Gout and HLD had intramedullary nailing of right femural fracture on 03/14/2018 at [facility]. She was transferred to TCU on 03/21/2018 for continuation of PT. 1. S/P Intramedullary Nailing of Right Femural Fracture improving with PT/OT continue pain management with Tramadol and Tylenol 2. Influenza A has been afebrile and asymptomatic had Tamiflu for 3 days 3. Tinea Cruris continue home medication cream applied BID (Clotrimazole/Betamethasone cream) 4. HTN BP stable continue Losartan/HCTZ and Coreg 5. Chronic Lymphedema continue Lasix 20mg PO daily 6. Gout continue Allopurinol 100mg PO BID 7. DVT prophylaxis on Lovenox 40mg SC daily
--- NOTE | 2018-03-29 17:20 | CP.PCM.PN ---
Subjective - Date & Time of Evaluation Date of Evaluation: 03/29/18 Time of Evaluation: 17:19 - Subjective Subjective: Patient seen in the room doing ok denies sob/cp very motivated to avoid ROBERTO doing practice steps ambulation continues to improve continue current care Objective - Vital Signs/Intake and Output Vital Signs (last 24 hours): Temp Pulse Resp BP Pulse Ox 97.9 F 76 20 132/53 L 96 03/29/18 09:36 03/29/18 09:36 03/29/18 09:36 03/29/18 09:36 03/29/18 09:36 - Medications Medications: Current Medications Acetaminophen (Tylenol 325mg Tab) 650 mg PO Q4 PRN PRN Reason: Pain, Mild (1-3) Last Admin: 03/25/18 11:57 Dose: 650 mg Al Hydrox/Mg Hydrox/Simethicone (Maalox Plus 30 Ml) 30 ml PO Q4 PRN PRN Reason: Indigestion Albuterol Sulfate (Albuterol 0.083% Inhal Nikia (2.5 Mg/3 Ml) Ud) 2.5 mg INH Q4 PRN PRN Reason: Cough and congestion Last Admin: 03/28/18 16:37 Dose: 2.5 mg Albuterol/Ipratropium (Duoneb 3 Mg/0.5 Mg (3 Ml) Ud) 3 ml IH RQ6 [facility] Last Admin: 03/29/18 14:30 Dose: Not Given Allopurinol (Zyloprim) 100 mg PO BID [facility] Last Admin: 03/29/18 16:07 Dose: 100 mg Atorvastatin Calcium (Lipitor) 10 mg PO DIN [facility] Last Admin: 03/29/18 16:07 Dose: 10 mg Calcium Carbonate (Oscal) 1,000 mg PO DAILY [facility] Last Admin: 03/29/18 08:35 Dose: 1,000 mg Carvedilol (Coreg) 12.5 mg PO Q12 [facility] Last Admin: 03/29/18 08:33 Dose: 12.5 mg Docusate Sodium (Colace) 100 mg PO BID [facility] Last Admin: 03/29/18 16:06 Dose: Not Given Enoxaparin Sodium (Lovenox) 40 mg SC DAILY [facility]; Protocol Last Admin: 03/29/18 08:34 Dose: 40 mg Furosemide (Lasix) 20 mg PO DAILY [facility] Last Admin: 03/29/18 08:34 Dose: 20 mg Guaifenesin/Dextromethorphan (Robitussin Dm) 10 ml PO Q6 PRN PRN Reason: Cough Last Admin: 03/29/18 08:35 Dose: 10 ml HCTZ/Losartan Potassium (Hyzaar 12.5 Mg-50 Mg) 1 tab PO DAILY [facility] Last Admin: 03/29/18 08:34 Dose: 1 tab Home Med (Patient's Own Medication) 1 unit TOP BID [facility] Last Admin: 03/29/18 16:07 Dose: 1 unit Loratadine (Claritin) 10 mg PO DAILY [facility] Last Admin: 03/29/18 08:32 Dose: 10 mg Oxycodone HCl (Oxycodone Immediate Release Tab) 2.5 mg PO Q4 PRN PRN Reason: Pain, severe (8-10) Polyethylene Glycol (Miralax) 17 gm PO DAILY [facility] Last Admin: 03/29/18 08:34 Dose: Not Given Sennosides (Senokot Tab) 8.6 mg PO HS [facility] Last Admin: 03/28/18 21:14 Dose: 8.6 mg Tramadol HCl (Ultram) 50 mg PO Q4 PRN PRN Reason: Pain, moderate (4-7) Last Admin: 03/29/18 12:37 Dose: 50 mg Vitamin D (Vitamin D 400 Intl Units Tab) 800 intlu PO DAILY [facility] Last Admin: 03/29/18 08:35 Dose: 800 intlu - Labs Labs: 03/28/18 05:00 03/28/18 05:29
[2018-03-29] MEDS: Albuterol 0.083% Inhal Sol (2.5 mg/3 mL) UD INH PRN (18:20)
[2018-03-30] MEDS: Albuterol-Ipratrop 3 mg / 0.5 (3 ml) UD IH SCH ×4 (01:07→19:38)
[2018-03-30 06:49] LABS: BLOOD UREA NITROGEN 12 mg/dl (7-17); CALCIUM 8.9 mg/dL (8.4-10.2); GFR NON-AFRICAN AMERICAN > 60
[2018-03-30] MEDS: Enoxaparin 40 mg Syringe SC SCH (08:39)
[2018-03-30] MEDS: HCTZ/Losartan 12.5/50 Tab PO SCH (08:41)
[2018-03-30] MEDS: Cholecalciferol 400 Intl Units Tab PO SCH (08:42)
[2018-03-30] MEDS: POLYETHYLENE GLYCOL 3350 17 GM/Dose PACKET PO SCH (08:43)
[2018-03-30] MEDS: CLOTRIMAZOLE TOP SCH ×2 (08:45→17:20)
[2018-03-30] MEDS: BETAMETHASONE TOP SCH ×2 (08:45→17:20)
--- NOTE | 2018-03-30 13:14 | PCM.PSYTMC ---
Acute Rehab Team Conference - - Vital Signs: Vital Signs (Last 8 Hours): Vital Signs 03/30/18 03/30/18 03/30/18 08:12 08:40 08:42 Temperature 97.7 F Pulse Rate 73 73 Respiratory 22 Rate Blood Pressure 129/69 129/69 129/69 O2 Sat by Pulse 96 Oximetry Pain: 0 - Precautions: Precautions: Fall Prevention - Medications/Other Issues: Comment: -Abdominal fold fungal infection - on Critic-Aid topical BID. -Right hip I/L with Dermabond. -Bladder urgency - on Purewick at night. - Consults: Comment: Dr Chris on consult for support - Skin: Incision Site: Rt Hip/Thigh/Upper Leg Dressing Status: Clean, Dry, Intact Incision: Healing Well Incision Line Treatment: I/L with durmabond healing well - Toileting: Toileting: Minimal Assistance - Bladder Management: Bladder Pattern: Urgency Voiding Method: Toilet Bladder Management: Minimal Assistance Other Intervention:: Pre existing stress incontince. Purewick at night while in bed to decrease incidences of incontinence. - Transfers: Transfers: Minimal Assistance - ADL's: ADL's: Moderate Assistance - Pain Management: Other Intervention:: Assess prn - Patient/Family Teaching: Other Intervention:: Medication,Pain management and Safety - Goals/Time Frame: Comment: as per POC - Provider: Registered Nurse:: Flor Greenwood Physical Therapy - Bed Mobility Bed Mobility: Moderate Assistance - Transfers Wheelchair to Mat: Minimal Assistance Sit to Stand: Verbal Cues, Contact Guard - Ambulation Level of Assistance: Supervision, Verbal Cues, Contact Guard Distance (ft.): 90 Assistive Devices: Rolling Walker - Stair Negotiation Stairs: Level of Assistance: Verbal Cues, Minimal Assistance Number of Stairs: 4 Handrails: Bilateral - Standing Balance Static Stand: Supervision - Pain Pain (assessed during therapy session): 2 Alleviating Techniques: Medication, Ice Comment: R hip - Insight/Carryover Insight/Carryover: Good - Patient/Family Education Comment: safety, POC, d/c recommendations - Assessment/Plan Assessment: Pt participated in PT tx session focusing on BLE strengthening exercises, endurance activities, and functional mobility training. Pt ascend/descend practice stairs with CGA using B handrails. Focusing on normalizing gait pattern and increasing gait speed. Pt will continue to benefit from skilled PT interventions to address deficits, reduce fall risk, and maximize functional independence. - Goals Timeframe: 2 weeks Goals: Sit < > supine mod I. All functional transfers mod I with RW. Pt will ambualte 200 ft mod I with RW. Pt will ascend/descend 6 stairs with supervision using B handrails - Provider Physical Therapist:: Linsey Dominguez License Number:: [id number] Occupational Therapy - Arousal/Attention/Orientation Level of Consciousness: Awake, Alert, Forgetful Patient Orientation: Person, Place, Time - ADL/IADL Self Feeding: Set-up Help Grooming: Set-up Help Bathing-Upper Ext: Supervision Bathing-Lower Ext: Supervision Dressing-Upper Ext: Set-up Help Dressing-Lower Ext: Supervision Comment: patient uses LE AE for bathing/dressing - Sitting Balance Static Sitting: Independent without upper extremity support Dynamic Sitting: Reaches out of base of support - Transfers Wheelchair to Bed Transfers: Supervision, Verbal Cues Toilet Transfers: Supervision, Verbal Cues Tub Transfers: Set-up Help, Contact Guard - Wheelchair Management Level of Assistance: Supervision Distance (ft.): 150 - Upper Extremity Status Right Upper Extremity Comment: WFLS Left Upper Extremity Comment: WFLS - Pain Pain (assessed during therapy session): 5 Alleviating Techniques: Medication, Position Change - Insight/Carryover Insight/Carryover: Good - Patient/Family Education Comment: DME/AE education, energy conservation, goals of therapy/role of OT - Assessment/Plan Assessment: Patient is a 77 yo female presenting to [facility] s/p mechanical fall resulting in R ORIF placement. PRECAUTIONS:FALLS. patient currently presents with impaired activity tolerance, impaired dynamic standing balance, pain in R groin/hip region 07/02, impaired knowledge of adaptive/compensatory techniques. Patient also demoed high anxiety/fear of falling. These aforementioned defecits impact pt's ability to complete adls, transfers and mobility safely and effectively. Patient is doing well and progressing towards goals in therapy~pt is able to complete ub adls with s/u/supervision and lb adls with superision using LB AE and given extended time to complete task , pt able to complete toileting with overall cga/CS and transfers with close supervision . patient met with psych and is shown some improvement with her anxiety/fearlevel. recommend intermittent supervison for bathing and assistance with iadls completion. recommended dme: 3 in 1 commode, tub transfer bench and hip kit. recommend skilled IP OT services 5-6x/week to max pt's functional I - Goals Timeframe: 1 week - Provider Occupational Therapist:: Karli Greene License Number: [id number] Speech Therapy - Consult Information Patient on Program: No Recreational Therapy - Participation Participation: Participates in Individual and/or Group Sessions - Attendance Attendance: 3-5 times per week - Activities Leisure Activities: Cards and Games - Socialization Level of Socialization: Initiates/interacts freely with care givers and peer - Diversional Time Diversional Time: socializing, reading, cards - Assessment Assessment/Plan: Pt is agreeable to participate in 1:1, group, and independent recreation therapy sessions. Pt receives daily room visits for social support and encouragement to participate in sessions. Pt has been oriented to leisure tasks to improve diversion from pain and anxiety. Pt also participated in bingo task with peers and socializes with peers and staff. Pt will utilize recreation room during her free time for diversion from room. Pt's mood is stable-positive and will continue to benefit from participating in recreation therapy sessions. Problems Currently Limiting Participation: pain, anxiety, decrease activity tolerance level Goals and Time Frame: Pt will be encouraged to participate in 1:1 and group recreation therapy sessions 3-5x week to improve activity tolerance level, arous al level, leisure awareness level, and diversion from pain by date of discharge. - Provider Therapist: Elana Baird Nutrition - Current Diet Current Diet/Supplement/Feedings: Heart Healthy Diet - Appetite Percent Meal Consumed: 75-100% - Comments Comments: Pt with good intake, no complaints. - Assessment/Goals/Time Frame Assessments/Goals/Time Frame: Pt to continue to consume at least 75% meals. Low risk patient for follow up 04/04/2018 - Provider Provider: Julio Richards Case Management - Psychosocial Assessment Support Systems: James Velasco (spouse) - [phone] Psychological Interventions/Needs: Patient is AAOx3 and able to verbalize needs. Discharge Concerns: Patient has 6 steps to enter her building. Patient/Family Meeting: CM met with patient and rehab team. Intervention/Goal/Outcome: 1. Goal: Intermittent supervision 2. Plan: Home with services 3. DME needs 4. schedule f/u appts 5. refer to [facility] - Discharge Plan Discharge Plan: Home with services Home Services: [facility] - Provider Provider: Sharon Dunn License Number: [id number] Rehabilitation Plan - Treatment Plan Treatment Plan: Physical Therapy, Occupational Therapy, Dietary, Patient/Family Education - Discharge Plan Estimated Date of Discharge: 04/08/18 Discharge to: Home
--- NOTE | 2018-03-30 13:43 | CP.PCM.PN ---
Subjective - Date & Time of Evaluation Date of Evaluation: 03/30/18 Time of Evaluation: 13:42 - Subjective Subjective: Patient seen in the room was present denies sob/cp remains motivated and very happy with progress Will extend stay given the extra days will clearly make a difference in a safe d/c continue current care pain is controlled Objective - Vital Signs/Intake and Output Vital Signs (last 24 hours): Temp Pulse Resp BP Pulse Ox 97.7 F 73 22 129/69 96 03/30/18 08:12 03/30/18 08:40 03/30/18 08:12 03/30/18 08:42 03/30/18 08:12 - Medications Medications: Current Medications Acetaminophen (Tylenol 325mg Tab) 650 mg PO Q4 PRN PRN Reason: Pain, Mild (1-3) Last Admin: 03/25/18 11:57 Dose: 650 mg Al Hydrox/Mg Hydrox/Simethicone (Maalox Plus 30 Ml) 30 ml PO Q4 PRN PRN Reason: Indigestion Albuterol Sulfate (Albuterol 0.083% Inhal Nikia (2.5 Mg/3 Ml) Ud) 2.5 mg INH Q4 PRN PRN Reason: Cough and congestion Last Admin: 03/29/18 18:20 Dose: 2.5 mg Albuterol/Ipratropium (Duoneb 3 Mg/0.5 Mg (3 Ml) Ud) 3 ml IH RQ6 [facility] Last Admin: 03/30/18 13:24 Dose: 3 ml Allopurinol (Zyloprim) 100 mg PO BID [facility] Last Admin: 03/30/18 08:42 Dose: 100 mg Atorvastatin Calcium (Lipitor) 10 mg PO DIN [facility] Last Admin: 03/29/18 16:07 Dose: 10 mg Calcium Carbonate (Oscal) 1,000 mg PO DAILY [facility] Last Admin: 03/30/18 08:41 Dose: 1,000 mg Carvedilol (Coreg) 12.5 mg PO Q12 [facility] Last Admin: 03/30/18 08:40 Dose: 12.5 mg Docusate Sodium (Colace) 100 mg PO BID [facility] Last Admin: 03/30/18 08:40 Dose: 100 mg Enoxaparin Sodium (Lovenox) 40 mg SC DAILY [facility]; Protocol Last Admin: 03/30/18 08:39 Dose: 40 mg Furosemide (Lasix) 20 mg PO DAILY [facility] Last Admin: 03/30/18 08:42 Dose: 20 mg Guaifenesin/Dextromethorphan (Robitussin Dm) 10 ml PO Q6 PRN PRN Reason: Cough Last Admin: 03/29/18 18:03 Dose: 10 ml HCTZ/Losartan Potassium (Hyzaar 12.5 Mg-50 Mg) 1 tab PO DAILY [facility] Last Admin: 03/30/18 08:41 Dose: 1 tab Home Med (Patient's Own Medication) 1 unit TOP BID [facility] Last Admin: 03/30/18 08:45 Dose: 1 unit Loratadine (Claritin) 10 mg PO DAILY [facility] Last Admin: 03/30/18 08:41 Dose: 10 mg Oxycodone HCl (Oxycodone Immediate Release Tab) 2.5 mg PO Q4 PRN PRN Reason: Pain, severe (8-10) Polyethylene Glycol (Miralax) 17 gm PO DAILY [facility] Last Admin: 03/30/18 08:43 Dose: Not Given Sennosides (Senokot Tab) 8.6 mg PO HS [facility] Last Admin: 03/29/18 21:09 Dose: 8.6 mg Tramadol HCl (Ultram) 50 mg PO Q4 PRN PRN Reason: Pain, moderate (4-7) Last Admin: 03/30/18 08:37 Dose: 50 mg Vitamin D (Vitamin D 400 Intl Units Tab) 800 intlu PO DAILY [facility] Last Admin: 03/30/18 08:42 Dose: 800 intlu - Labs Labs: 03/28/18 05:00 03/30/18 05:15
[2018-03-31] MEDS: Albuterol-Ipratrop 3 mg / 0.5 (3 ml) UD IH SCH ×4 (01:19→19:59)
[2018-03-31 06:19] LABS: MEAN CELL VOLUME 76.4 fl (81.0-99.0); MEAN CORPUSCULAR HGB CONC 31.4 g/dL (33.0-37.0); RBC 3.74 Mil/uL (3.80-5.20); RED CELL DISTRIBUTION WIDTH 18.2 % (11.5-14.5); WHITE BLOOD COUNT 5.2 K/uL (4.8-10.8)
[2018-03-31 06:31] LABS: BLOOD UREA NITROGEN 13 mg/dl (7-17); CALCIUM 8.7 mg/dL (8.4-10.2); GFR NON-AFRICAN AMERICAN > 60
[2018-03-31] MEDS: HCTZ/Losartan 12.5/50 Tab PO SCH (08:30)
[2018-03-31] MEDS: Enoxaparin 40 mg Syringe SC SCH (08:31)
[2018-03-31] MEDS: Cholecalciferol 400 Intl Units Tab PO SCH (08:31)
[2018-03-31] MEDS: POLYETHYLENE GLYCOL 3350 17 GM/Dose PACKET PO SCH (08:37)
[2018-03-31] MEDS: BETAMETHASONE TOP SCH ×2 (08:39→16:21)
[2018-03-31] MEDS: CLOTRIMAZOLE TOP SCH ×2 (08:39→16:21)
--- NOTE | 2018-03-31 11:24 | CP.PCM.PN ---
Subjective - Date & Time of Evaluation Date of Evaluation: 03/31/18 Time of Evaluation: 11:23 - Subjective Subjective: doing well no complaints participating well with PT hd stable nad no calf tenderness sob chest pain Objective - Vital Signs/Intake and Output Vital Signs (last 24 hours): Temp Pulse Resp BP Pulse Ox 97.3 F L 84 18 144/53 L 98 03/31/18 09:22 03/31/18 09:22 03/31/18 09:22 03/31/18 09:22 03/31/18 09:22 Vitals Reviewed GEN: WDWN, alert, cooperative HEENT: NCAT, PERRL, EOMI HEART: RRR, +S1S2, NO MRG LUNG: CTAB, NO WRR ABD: soft, NT, ND, No HSM, No masses EXT: normal pedal pulses NEURO: awake, alert SKIN: warm, dry PSYCH: normal mood, normal affect - Medications Medications: Current Medications Acetaminophen (Tylenol 325mg Tab) 650 mg PO Q4 PRN PRN Reason: Pain, Mild (1-3) Last Admin: 03/25/18 11:57 Dose: 650 mg Al Hydrox/Mg Hydrox/Simethicone (Maalox Plus 30 Ml) 30 ml PO Q4 PRN PRN Reason: Indigestion Albuterol Sulfate (Albuterol 0.083% Inhal Nikia (2.5 Mg/3 Ml) Ud) 2.5 mg INH Q4 PRN PRN Reason: Cough and congestion Last Admin: 03/29/18 18:20 Dose: 2.5 mg Albuterol/Ipratropium (Duoneb 3 Mg/0.5 Mg (3 Ml) Ud) 3 ml IH RQ6 [facility] Last Admin: 03/31/18 07:24 Dose: 3 ml Allopurinol (Zyloprim) 100 mg PO BID [facility] Last Admin: 03/31/18 08:29 Dose: 100 mg Atorvastatin Calcium (Lipitor) 10 mg PO DIN [facility] Last Admin: 03/30/18 17:19 Dose: 10 mg Calcium Carbonate (Oscal) 1,000 mg PO DAILY [facility] Last Admin: 03/31/18 08:28 Dose: 1,000 mg Carvedilol (Coreg) 12.5 mg PO Q12 [facility] Last Admin: 03/31/18 08:30 Dose: 12.5 mg Docusate Sodium (Colace) 100 mg PO BID [facility] Last Admin: 03/31/18 08:29 Dose: 100 mg Enoxaparin Sodium (Lovenox) 40 mg SC DAILY [facility]; Protocol Last Admin: 03/31/18 08:31 Dose: 40 mg Furosemide (Lasix) 20 mg PO DAILY [facility] Last Admin: 03/31/18 08:29 Dose: 20 mg Guaifenesin/Dextromethorphan (Robitussin Dm) 10 ml PO Q6 PRN PRN Reason: Cough Last Admin: 03/29/18 18:03 Dose: 10 ml HCTZ/Losartan Potassium (Hyzaar 12.5 Mg-50 Mg) 1 tab PO DAILY [facility] Last Admin: 03/31/18 08:30 Dose: 1 tab Home Med (Patient's Own Medication) 1 unit TOP BID [facility] Last Admin: 03/31/18 08:39 Dose: 1 unit Loratadine (Claritin) 10 mg PO DAILY [facility] Last Admin: 03/31/18 08:31 Dose: 10 mg Oxycodone HCl (Oxycodone Immediate Release Tab) 2.5 mg PO Q4 PRN PRN Reason: Pain, severe (8-10) Polyethylene Glycol (Miralax) 17 gm PO DAILY [facility] Last Admin: 03/31/18 08:37 Dose: Not Given Sennosides (Senokot Tab) 8.6 mg PO HS [facility] Last Admin: 03/30/18 21:15 Dose: Not Given Tramadol HCl (Ultram) 50 mg PO Q4 PRN PRN Reason: Pain, moderate (4-7) Last Admin: 03/31/18 08:34 Dose: 50 mg Vitamin D (Vitamin D 400 Intl Units Tab) 800 intlu PO DAILY [facility] Last Admin: 03/31/18 08:31 Dose: 800 intlu - Labs Labs: 03/31/18 05:20 03/31/18 05:20 Assessment and Plan - Assessment and Plan (Free Text) Plan: 77 yo female with history of HTN, Gout and HLD had intramedullary nailing of right femural fracture on 03/14/2018 at [facility]. She was transferred to TCU on 03/21/2018 for continuation of PT. 1. S/P Intramedullary Nailing of Right Femural Fracture improving with PT/OT continue pain management with Tramadol and Tylenol 2. Influenza A has been afebrile and asymptomatic had Tamiflu for 3 days 3. Tinea Cruris continue home medication cream applied BID (Clotrimazole/Betamethasone cream) 4. HTN BP stable continue Losartan/HCTZ and Coreg 5. Chronic Lymphedema continue Lasix 20mg PO daily 6. Gout continue Allopurinol 100mg PO BID 7. DVT prophylaxis on Lovenox 40mg SC daily
--- NOTE | 2018-03-31 13:32 | CP.PCM.PN ---
Subjective - Date & Time of Evaluation Date of Evaluation: 03/31/18 Time of Evaluation: 13:30 - Subjective Subjective: 77 year old female s/p right hip fracture and ORIF. She is coming along ok no sob/cp or fever slow ambulation but limited pain complaints Objective - Vital Signs/Intake and Output Vital Signs (last 24 hours): Temp Pulse Resp BP Pulse Ox 97.3 F L 84 18 144/53 L 98 03/31/18 09:22 03/31/18 09:22 03/31/18 09:22 03/31/18 09:22 03/31/18 09:22 - Medications Medications: Current Medications Acetaminophen (Tylenol 325mg Tab) 650 mg PO Q4 PRN PRN Reason: Pain, Mild (1-3) Last Admin: 03/25/18 11:57 Dose: 650 mg Al Hydrox/Mg Hydrox/Simethicone (Maalox Plus 30 Ml) 30 ml PO Q4 PRN PRN Reason: Indigestion Albuterol Sulfate (Albuterol 0.083% Inhal Nikia (2.5 Mg/3 Ml) Ud) 2.5 mg INH Q4 PRN PRN Reason: Cough and congestion Last Admin: 03/29/18 18:20 Dose: 2.5 mg Albuterol/Ipratropium (Duoneb 3 Mg/0.5 Mg (3 Ml) Ud) 3 ml IH RQ6 [facility] Last Admin: 03/31/18 13:21 Dose: Not Given Allopurinol (Zyloprim) 100 mg PO BID [facility] Last Admin: 03/31/18 08:29 Dose: 100 mg Atorvastatin Calcium (Lipitor) 10 mg PO DIN [facility] [place] Last Admin: 03/30/18 17:19 Dose: 10 mg Calcium Carbonate (Oscal) 1,000 mg PO DAILY [facility] Last Admin: 03/31/18 08:28 Dose: 1,000 mg Carvedilol (Coreg) 12.5 mg PO Q12 [facility] Last Admin: 03/31/18 08:30 Dose: 12.5 mg Docusate Sodium (Colace) 100 mg PO BID [facility] [place] Last Admin: 03/31/18 08:29 Dose: 100 mg Enoxaparin Sodium (Lovenox) 40 mg SC DAILY [facility] [place]; Protocol Last Admin: 03/31/18 08:31 Dose: 40 mg Furosemide (Lasix) 20 mg PO DAILY [facility] [place] Last Admin: 03/31/18 08:29 Dose: 20 mg Guaifenesin/Dextromethorphan (Robitussin Dm) 10 ml PO Q6 PRN PRN Reason: Cough Last Admin: 03/29/18 18:03 Dose: 10 ml HCTZ/Losartan Potassium (Hyzaar 12.5 Mg-50 Mg) 1 tab PO DAILY [facility] Last Admin: 03/31/18 08:30 Dose: 1 tab Home Med (Patient's Own Medication) 1 unit TOP BID [facility] [place] Last Admin: 03/31/18 08:39 Dose: 1 unit Loratadine (Claritin) 10 mg PO DAILY [facility] [place] Last Admin: 03/31/18 08:31 Dose: 10 mg Oxycodone HCl (Oxycodone Immediate Release Tab) 2.5 mg PO Q4 PRN PRN Reason: Pain, severe (8-10) Polyethylene Glycol (Miralax) 17 gm PO DAILY [facility] [place] Last Admin: 03/31/18 08:37 Dose: Not Given Sennosides (Senokot Tab) 8.6 mg PO HS [facility] [place] Last Admin: 03/30/18 21:15 Dose: Not Given Tramadol HCl (Ultram) 50 mg PO Q4 PRN PRN Reason: Pain, moderate (4-7) Last Admin: 03/31/18 12:30 Dose: 50 mg Vitamin D (Vitamin D 400 Intl Units Tab) 800 intlu PO DAILY [facility] [place] Last Admin: 03/31/18 08:31 Dose: 800 intlu - Labs Labs: 03/31/18 05:20 03/31/18 05:20 - Constitutional Appears: Well, Non-toxic, No Acute Distress - Head Exam Head Exam: ATRAUMATIC, NORMAL INSPECTION, NORMOCEPHALIC - Eye Exam Eye Exam: EOMI - ENT Exam ENT Exam: Mucous Membranes Moist - Neck Exam Neck Exam: Normal Inspection - Respiratory Exam Respiratory Exam: NORMAL BREATHING PATTERN - GI/Abdominal Exam GI & Abdominal Exam: absent: Distended - Extremities Exam Extremities Exam: absent: Calf Tenderness - Neurological Exam Neurological Exam: Alert, Awake, CN II-XII Intact - Psychiatric Exam Psychiatric exam: Normal Affect, Normal Mood - Skin Skin Exam: Warm Assessment and Plan - Assessment and Plan (Free Text) Assessment: 77 y/o female after right hip fracture and orif PT/OT to continue to help increase functional independence Team conference for d/c planning Pain: controlled Vascular: no evidence of DVT GI: No evidence of constipation or diarrhea Patient continues to be an excellent acute rehabilitation candidate and will have continued focused pain management, wound care, PT, OT and recreational therapy to help facilitate a safe and appropriate d/c plan
[2018-03-31] MEDS: Albuterol 0.083% Inhal Sol (2.5 mg/3 mL) UD INH PRN (17:54)
[2018-04-01] MEDS: Albuterol-Ipratrop 3 mg / 0.5 (3 ml) UD IH SCH ×4 (03:37→19:24)
[2018-04-01] MEDS: Cholecalciferol 400 Intl Units Tab PO SCH (08:34)
[2018-04-01] MEDS: HCTZ/Losartan 12.5/50 Tab PO SCH (08:35)
[2018-04-01] MEDS: CLOTRIMAZOLE TOP SCH ×2 (08:35→17:08)
[2018-04-01] MEDS: BETAMETHASONE TOP SCH ×2 (08:35→17:08)
[2018-04-01] MEDS: POLYETHYLENE GLYCOL 3350 17 GM/Dose PACKET PO SCH (08:36)
[2018-04-01] MEDS: Enoxaparin 40 mg Syringe SC SCH (08:36)
[2018-04-02] MEDS: Albuterol-Ipratrop 3 mg / 0.5 (3 ml) UD IH SCH ×4 (02:00→20:03)
[2018-04-02] MEDS: Enoxaparin 40 mg Syringe SC SCH (08:32)
[2018-04-02] MEDS: Cholecalciferol 400 Intl Units Tab PO SCH (08:34)
[2018-04-02] MEDS: HCTZ/Losartan 12.5/50 Tab PO SCH (08:34)
[2018-04-02] MEDS: POLYETHYLENE GLYCOL 3350 17 GM/Dose PACKET PO SCH (08:35)
[2018-04-02] MEDS: BETAMETHASONE TOP SCH ×2 (08:45→18:48)
[2018-04-02] MEDS: CLOTRIMAZOLE TOP SCH ×2 (08:45→18:48)
--- NOTE | 2018-04-02 11:27 | CP.PCM.CON ---
History of Present Illness - History of Present Illness History of Present Illness: Pt seen for sup therapy 11:10-11:26. Pt discussed gains over the last week, pt spoke of looking forward to the future, return home, to home therapy and then outpatient, pt adjusting increasingly well, pt less distressed, less dysphoric, and confidant about the future. Pt adjusting well Past Patient History - Infectious Disease Hx of Infectious Diseases: None - Tetanus Immunizations Tetanus Immunization: Unknown - Past Medical History & Family History Past Medical History?: Yes - Past Social History Smoking Status: Never Smoked Chewing Tobacco Use: No Drugs: Denies Home Situation {Lives}: With Family (6 steps) - CARDIAC Hx Hypercholesterolemia: Yes Hx Hypertension: Yes - PULMONARY Hx Sleep Apnea: Yes - NEUROLOGICAL Hx Neurological Disorder: No - HEENT Hx HEENT Problems: No - RENAL Hx Chronic Kidney Disease: No - ENDOCRINE/METABOLIC Hx Diabetes Mellitus Type 2: Yes (controlled by diet) - HEMATOLOGICAL/ONCOLOGICAL Hx Blood Disorders: No - INTEGUMENTARY Hx Dermatological Problems: No - MUSCULOSKELETAL/RHEUMATOLOGICAL Hx Gout: Yes Hx Osteoarthritis: Yes - GASTROINTESTINAL Hx Gastrointestinal Disorders: No - GENITOURINARY/GYNECOLOGICAL Hx Genitourinary Disorders: No - PSYCHIATRIC Hx Psychophysiologic Disorder: No - SURGICAL HISTORY Hx Surgeries: Yes Hx Cholecystectomy: Yes Other/Comment: carpal tunnel release - ANESTHESIA Hx Anesthesia: Yes Hx Anesthesia Reactions: No Meds Allergies/Adverse Reactions: Allergies Allergy/AdvReac Type Severity Reaction Status Date / Time iodine Allergy ITCHING Verified 05/11/16 12:54 Iodine and Iodide Containing Allergy RASH Verified 03/23/18 11:29 Produc - Medications Medications: Current Medications Acetaminophen (Tylenol 325mg Tab) 650 mg PO Q4 PRN PRN Reason: Pain, Mild (1-3) Last Admin: 03/25/18 11:57 Dose: 650 mg Al Hydrox/Mg Hydrox/Simethicone (Maalox Plus 30 Ml) 30 ml PO Q4 PRN PRN Reason: Indigestion Albuterol Sulfate (Albuterol 0.083% Inhal Nikia (2.5 Mg/3 Ml) Ud) 2.5 mg INH Q4 PRN PRN Reason: Cough and congestion Last Admin: 03/31/18 17:54 Dose: 2.5 mg Albuterol/Ipratropium (Duoneb 3 Mg/0.5 Mg (3 Ml) Ud) 3 ml IH RQ6 [facility] Last Admin: 04/02/18 07:19 Dose: 3 ml Allopurinol (Zyloprim) 100 mg PO BID [facility] Last Admin: 04/02/18 08:32 Dose: 100 mg Atorvastatin Calcium (Lipitor) 10 mg PO DIN [facility] Last Admin: 04/01/18 17:08 Dose: 10 mg Calcium Carbonate (Oscal) 1,000 mg PO DAILY [facility] Last Admin: 04/02/18 08:34 Dose: 1,000 mg Carvedilol (Coreg) 12.5 mg PO Q12 [facility] Last Admin: 04/02/18 08:33 Dose: 12.5 mg Docusate Sodium (Colace) 100 mg PO BID [facility] Last Admin: 04/02/18 08:32 Dose: 100 mg Enoxaparin Sodium (Lovenox) 40 mg SC DAILY [facility]; Protocol Last Admin: 04/02/18 08:32 Dose: 40 mg Furosemide (Lasix) 20 mg PO DAILY [facility] Last Admin: 04/02/18 08:35 Dose: 20 mg Guaifenesin/Dextromethorphan (Robitussin Dm) 10 ml PO Q6 PRN PRN Reason: Cough Last Admin: 03/29/18 18:03 Dose: 10 ml HCTZ/Losartan Potassium (Hyzaar 12.5 Mg-50 Mg) 1 tab PO DAILY [facility] Last Admin: 04/02/18 08:34 Dose: 1 tab Home Med (Patient's Own Medication) 1 unit TOP BID [facility] Last Admin: 04/02/18 08:45 Dose: 1 unit Loratadine (Claritin) 10 mg PO DAILY [facility] Last Admin: 04/02/18 08:32 Dose: 10 mg Oxycodone HCl (Oxycodone Immediate Release Tab) 2.5 mg PO Q4 PRN PRN Reason: Pain, severe (8-10) Polyethylene Glycol (Miralax) 17 gm PO DAILY [facility] Last Admin: 04/02/18 08:35 Dose: Not Given Sennosides (Senokot Tab) 8.6 mg PO HS [facility] Last Admin: 04/01/18 21:29 Dose: Not Given Tramadol HCl (Ultram) 50 mg PO Q4 PRN PRN Reason: Pain, moderate (4-7) Last Admin: 04/02/18 09:57 Dose: 50 mg Vitamin D (Vitamin D 400 Intl Units Tab) 800 intlu PO DAILY [facility] Last Admin: 04/02/18 08:34 Dose: 800 intlu Results - Vital Signs Recent Vital Signs: Last Vital Signs Temp 97.0 F L 04/02/18 07:27 Pulse 67 04/02/18 08:33 Resp 20 04/02/18 07:27 BP 140/60 04/02/18 08:35 Pulse Ox 95 04/02/18 07:27 - Labs Result Diagrams: 03/31/18 05:20 03/31/18 05:20
--- NOTE | 2018-04-02 14:28 | CP.PCM.PN ---
Subjective - Date & Time of Evaluation Date of Evaluation: 04/02/18 Time of Evaluation: 10:15 - Subjective Subjective: Patient seen and examined. Claimed to be doing much better. Objective - Vital Signs/Intake and Output Vital Signs (last 24 hours): Temp Pulse Resp BP Pulse Ox 97.0 F L 67 20 140/60 95 04/02/18 07:27 04/02/18 08:33 04/02/18 07:27 04/02/18 08:35 04/02/18 07:27 - Medications Medications: Current Medications Acetaminophen (Tylenol 325mg Tab) 650 mg PO Q4 PRN PRN Reason: Pain, Mild (1-3) Last Admin: 03/25/18 11:57 Dose: 650 mg Al Hydrox/Mg Hydrox/Simethicone (Maalox Plus 30 Ml) 30 ml PO Q4 PRN PRN Reason: Indigestion Albuterol Sulfate (Albuterol 0.083% Inhal Nikia (2.5 Mg/3 Ml) Ud) 2.5 mg INH Q4 PRN PRN Reason: Cough and congestion Last Admin: 03/31/18 17:54 Dose: 2.5 mg Albuterol/Ipratropium (Duoneb 3 Mg/0.5 Mg (3 Ml) Ud) 3 ml IH RQ6 [facility] Last Admin: 04/02/18 13:21 Dose: Not Given Allopurinol (Zyloprim) 100 mg PO BID [facility] Last Admin: 04/02/18 08:32 Dose: 100 mg Atorvastatin Calcium (Lipitor) 10 mg PO DIN [facility] Last Admin: 04/01/18 17:08 Dose: 10 mg Calcium Carbonate (Oscal) 1,000 mg PO DAILY [facility] Last Admin: 04/02/18 08:34 Dose: 1,000 mg Carvedilol (Coreg) 12.5 mg PO Q12 [facility] Last Admin: 04/02/18 08:33 Dose: 12.5 mg Docusate Sodium (Colace) 100 mg PO BID [facility] Last Admin: 04/02/18 08:32 Dose: 100 mg Enoxaparin Sodium (Lovenox) 40 mg SC DAILY [facility]; Protocol Last Admin: 04/02/18 08:32 Dose: 40 mg Furosemide (Lasix) 20 mg PO DAILY [facility] Last Admin: 04/02/18 08:35 Dose: 20 mg Guaifenesin/Dextromethorphan (Robitussin Dm) 10 ml PO Q6 PRN PRN Reason: Cough Last Admin: 03/29/18 18:03 Dose: 10 ml HCTZ/Losartan Potassium (Hyzaar 12.5 Mg-50 Mg) 1 tab PO DAILY [facility] Last Admin: 04/02/18 08:34 Dose: 1 tab Home Med (Patient's Own Medication) 1 unit TOP BID [facility] Last Admin: 04/02/18 08:45 Dose: 1 unit Loratadine (Claritin) 10 mg PO DAILY [facility] Last Admin: 04/02/18 08:32 Dose: 10 mg Oxycodone HCl (Oxycodone Immediate Release Tab) 2.5 mg PO Q4 PRN PRN Reason: Pain, severe (8-10) Polyethylene Glycol (Miralax) 17 gm PO DAILY [facility] Last Admin: 04/02/18 08:35 Dose: Not Given Sennosides (Senokot Tab) 8.6 mg PO HS [facility] Last Admin: 04/01/18 21:29 Dose: Not Given Tramadol HCl (Ultram) 50 mg PO Q4 PRN PRN Reason: Pain, moderate (4-7) Last Admin: 04/02/18 13:35 Dose: 50 mg Vitamin D (Vitamin D 400 Intl Units Tab) 800 intlu PO DAILY [facility] Last Admin: 04/02/18 08:34 Dose: 800 intlu - Labs Labs: 03/31/18 05:20 03/31/18 05:20 - Constitutional Appears: No Acute Distress - Head Exam Head Exam: ATRAUMATIC - Eye Exam Eye Exam: absent: Scleral icterus - ENT Exam ENT Exam: Mucous Membranes Moist - Neck Exam Neck Exam: absent: Meningismus - Respiratory Exam Respiratory Exam: absent: Rales, Rhonchi, Wheezes, Respiratory Distress - Cardiovascular Exam Cardiovascular Exam: REGULAR RHYTHM, +S1, +S2 - GI/Abdominal Exam GI & Abdominal Exam: Soft. absent: Tenderness - Rectal Exam Rectal Exam: Deferred - Neurological Exam Neurological Exam: Alert, Oriented x3 - Psychiatric Exam Psychiatric exam: Normal Affect - Skin Skin Exam: Dry, Intact Assessment and Plan - Assessment and Plan (Free Text) Assessment: 77 yo female with history of HTN, Gout and HLD had intramedullary nailing of right femural fracture on 03/14/2018 at [facility]. She was transferred to TCU on 03/21/2018 for continuation of PT. 1. S/P Intramedullary Nailing of Right Femural Fracture continue PT/OT pain bearable and only needs it prior to therapy 2. Influenza A asymptomatic received 3 days of Tamiflu 3. Tinea Cruris continue home medication cream applied BID (Clotrimazole/Betamethasone cream) 4. HTN BP stable continue Losartan/HCTZ and Coreg 5. Chronic Lymphedema continue Lasix 20mg PO daily 6. Gout continue Allopurinol 100mg PO BID 7. DVT prophylaxis on Lovenox 40mg SC daily
--- NOTE | 2018-04-02 16:28 | CP.PCM.PN ---
Subjective - Date & Time of Evaluation Date of Evaluation: 04/02/18 Time of Evaluation: 16:27 - Subjective Subjective: Patient seen in the room doing very well very happy with the progress and has no clear pain issues nervous about the stairs and this will be the primary focus next week with the planned 04/08/18 discharge. Objective - Vital Signs/Intake and Output Vital Signs (last 24 hours): Temp Pulse Resp BP Pulse Ox 97.0 F L 67 20 140/60 95 04/02/18 07:27 04/02/18 08:33 04/02/18 07:27 04/02/18 08:35 04/02/18 07:27 - Medications Medications: Current Medications Acetaminophen (Tylenol 325mg Tab) 650 mg PO Q4 PRN PRN Reason: Pain, Mild (1-3) Last Admin: 03/25/18 11:57 Dose: 650 mg Al Hydrox/Mg Hydrox/Simethicone (Maalox Plus 30 Ml) 30 ml PO Q4 PRN PRN Reason: Indigestion Albuterol Sulfate (Albuterol 0.083% Inhal Nikia (2.5 Mg/3 Ml) Ud) 2.5 mg INH Q4 PRN PRN Reason: Cough and congestion Last Admin: 03/31/18 17:54 Dose: 2.5 mg Albuterol/Ipratropium (Duoneb 3 Mg/0.5 Mg (3 Ml) Ud) 3 ml IH RQ6 [facility] Last Admin: 04/02/18 13:21 Dose: Not Given Allopurinol (Zyloprim) 100 mg PO BID [facility] Last Admin: 04/02/18 08:32 Dose: 100 mg Atorvastatin Calcium (Lipitor) 10 mg PO DIN [facility] Last Admin: 04/01/18 17:08 Dose: 10 mg Calcium Carbonate (Oscal) 1,000 mg PO DAILY [facility] Last Admin: 04/02/18 08:34 Dose: 1,000 mg Carvedilol (Coreg) 12.5 mg PO Q12 [facility] Last Admin: 04/02/18 08:33 Dose: 12.5 mg Docusate Sodium (Colace) 100 mg PO BID [facility] Last Admin: 04/02/18 08:32 Dose: 100 mg Enoxaparin Sodium (Lovenox) 40 mg SC DAILY [facility]; Protocol Last Admin: 04/02/18 08:32 Dose: 40 mg Furosemide (Lasix) 20 mg PO DAILY [facility] Last Admin: 04/02/18 08:35 Dose: 20 mg Guaifenesin/Dextromethorphan (Robitussin Dm) 10 ml PO Q6 PRN PRN Reason: Cough Last Admin: 03/29/18 18:03 Dose: 10 ml HCTZ/Losartan Potassium (Hyzaar 12.5 Mg-50 Mg) 1 tab PO DAILY [facility] Last Admin: 04/02/18 08:34 Dose: 1 tab Home Med (Patient's Own Medication) 1 unit TOP BID [facility] Last Admin: 04/02/18 08:45 Dose: 1 unit Loratadine (Claritin) 10 mg PO DAILY [facility] Last Admin: 04/02/18 08:32 Dose: 10 mg Oxycodone HCl (Oxycodone Immediate Release Tab) 2.5 mg PO Q4 PRN PRN Reason: Pain, severe (8-10) Polyethylene Glycol (Miralax) 17 gm PO DAILY [facility] Last Admin: 04/02/18 08:35 Dose: Not Given Sennosides (Senokot Tab) 8.6 mg PO HS [facility] Last Admin: 04/01/18 21:29 Dose: Not Given Tramadol HCl (Ultram) 50 mg PO Q4 PRN PRN Reason: Pain, moderate (4-7) Last Admin: 04/02/18 13:35 Dose: 50 mg Vitamin D (Vitamin D 400 Intl Units Tab) 800 intlu PO DAILY [facility] Last Admin: 04/02/18 08:34 Dose: 800 intlu - Labs Labs: 03/31/18 05:20 03/31/18 05:20
[2018-04-03] MEDS: Albuterol-Ipratrop 3 mg / 0.5 (3 ml) UD IH SCH ×4 (01:41→19:17)
[2018-04-03 07:29] LABS: HEMOGLOBIN 9.4 g/dL (12.0-16.0); MEAN CORPUSCULAR HEMOGLOBIN 24.2 pg (27.0-31.0); MEAN CORPUSCULAR HGB CONC 31.9 g/dL (33.0-37.0); RBC 3.89 Mil/uL (3.80-5.20); RED CELL DISTRIBUTION WIDTH 18.9 % (11.5-14.5); WHITE BLOOD COUNT 5.6 K/uL (4.8-10.8)
[2018-04-03 07:48] LABS: BLOOD UREA NITROGEN 15 mg/dl (7-17); GFR NON-AFRICAN AMERICAN > 60
[2018-04-03] MEDS: Cholecalciferol 400 Intl Units Tab PO SCH (09:56)
[2018-04-03] MEDS: Enoxaparin 40 mg Syringe SC SCH (09:57)
[2018-04-03] MEDS: HCTZ/Losartan 12.5/50 Tab PO SCH (09:59)
[2018-04-03] MEDS: BETAMETHASONE TOP SCH ×2 (10:00→18:33)
[2018-04-03] MEDS: CLOTRIMAZOLE TOP SCH ×2 (10:00→18:33)
[2018-04-03] MEDS: POLYETHYLENE GLYCOL 3350 17 GM/Dose PACKET PO SCH (10:00)
[2018-04-04] MEDS: Albuterol-Ipratrop 3 mg / 0.5 (3 ml) UD IH SCH ×4 (05:42→20:12)
[2018-04-04] MEDS: Cholecalciferol 400 Intl Units Tab PO SCH (08:42)
[2018-04-04] MEDS: BETAMETHASONE TOP SCH ×2 (08:43→17:26)
[2018-04-04] MEDS: CLOTRIMAZOLE TOP SCH ×2 (08:43→17:26)
[2018-04-04] MEDS: HCTZ/Losartan 12.5/50 Tab PO SCH (08:44)
[2018-04-04] MEDS: POLYETHYLENE GLYCOL 3350 17 GM/Dose PACKET PO SCH (08:44)
[2018-04-04] MEDS: Enoxaparin 40 mg Syringe SC SCH (08:44)
[2018-04-05] MEDS: Albuterol-Ipratrop 3 mg / 0.5 (3 ml) UD IH SCH ×4 (01:11→19:18)
[2018-04-05] MEDS: CLOTRIMAZOLE TOP SCH ×2 (08:48→16:48)
[2018-04-05] MEDS: Enoxaparin 40 mg Syringe SC SCH (08:48)
[2018-04-05] MEDS: BETAMETHASONE TOP SCH ×2 (08:48→16:48)
[2018-04-05] MEDS: HCTZ/Losartan 12.5/50 Tab PO SCH (08:49)
[2018-04-05] MEDS: Cholecalciferol 400 Intl Units Tab PO SCH (08:49)
[2018-04-05] MEDS: POLYETHYLENE GLYCOL 3350 17 GM/Dose PACKET PO SCH (08:52)
--- NOTE | 2018-04-05 11:29 | CP.PCM.PN ---
Subjective - Date & Time of Evaluation Date of Evaluation: 04/05/18 Time of Evaluation: 11:15 - Subjective Subjective: Pt seen during PT very nervous doing the stairs other than that she has been doing well stated that she is due for discharge on Apr 08 and does not want to go anywhere but home has sl left knee pain denies CP no SOB no abd pain no fever Objective - Vital Signs/Intake and Output Vital Signs (last 24 hours): Temp Pulse Resp BP Pulse Ox 98.1 F 72 18 137/59 L 95 04/05/18 07:42 04/05/18 08:49 04/05/18 07:42 04/05/18 08:49 04/05/18 07:42 - Medications Medications: Current Medications Acetaminophen (Tylenol 325mg Tab) 650 mg PO Q4 PRN PRN Reason: Pain, Mild (1-3) Last Admin: 04/04/18 19:16 Dose: 650 mg Al Hydrox/Mg Hydrox/Simethicone (Maalox Plus 30 Ml) 30 ml PO Q4 PRN PRN Reason: Indigestion Albuterol Sulfate (Albuterol 0.083% Inhal Nikia (2.5 Mg/3 Ml) Ud) 2.5 mg INH Q4 PRN PRN Reason: Cough and congestion Last Admin: 03/31/18 17:54 Dose: 2.5 mg Albuterol/Ipratropium (Duoneb 3 Mg/0.5 Mg (3 Ml) Ud) 3 ml IH RQ6 [facility] Last Admin: 04/05/18 08:18 Dose: 3 ml Allopurinol (Zyloprim) 100 mg PO BID [facility] Last Admin: 04/05/18 08:50 Dose: 100 mg Atorvastatin Calcium (Lipitor) 10 mg PO DIN [facility] Last Admin: 04/04/18 17:25 Dose: 10 mg Calcium Carbonate (Oscal) 1,000 mg PO DAILY [facility] Last Admin: 04/05/18 09:18 Dose: 1,000 mg Carvedilol (Coreg) 12.5 mg PO Q12 [facility] Last Admin: 04/05/18 08:49 Dose: 12.5 mg Docusate Sodium (Colace) 100 mg PO BID [facility] Last Admin: 04/05/18 08:50 Dose: 100 mg Enoxaparin Sodium (Lovenox) 40 mg SC DAILY [facility]; Protocol Last Admin: 04/05/18 08:48 Dose: 40 mg Furosemide (Lasix) 20 mg PO DAILY [facility] Last Admin: 04/05/18 08:49 Dose: 20 mg Guaifenesin/Dextromethorphan (Robitussin Dm) 10 ml PO Q6 PRN PRN Reason: Cough Last Admin: 03/29/18 18:03 Dose: 10 ml HCTZ/Losartan Potassium (Hyzaar 12.5 Mg-50 Mg) 1 tab PO DAILY [facility] Last Admin: 04/05/18 08:49 Dose: 1 tab Home Med (Patient's Own Medication) 1 unit TOP BID [facility] Last Admin: 04/05/18 08:48 Dose: 1 unit Loratadine (Claritin) 10 mg PO DAILY [facility] Last Admin: 04/05/18 08:50 Dose: 10 mg Oxycodone HCl (Oxycodone Immediate Release Tab) 2.5 mg PO Q4 PRN PRN Reason: Pain, severe (8-10) Polyethylene Glycol (Miralax) 17 gm PO DAILY [facility] Last Admin: 04/05/18 08:52 Dose: Not Given Sennosides (Senokot Tab) 8.6 mg PO HS [facility] Last Admin: 04/04/18 21:21 Dose: Not Given Tramadol HCl (Ultram) 50 mg PO Q4 PRN PRN Reason: for pain scale 4-7 Last Admin: 04/05/18 09:21 Dose: 50 mg Vitamin D (Vitamin D 400 Intl Units Tab) 800 intlu PO DAILY [facility] Last Admin: 04/05/18 08:49 Dose: 800 intlu - Labs Labs: 04/03/18 05:30 04/03/18 05:30 - Constitutional Appears: Non-toxic, No Acute Distress - Head Exam Head Exam: NORMAL INSPECTION, NORMOCEPHALIC - Eye Exam Eye Exam: EOMI, Normal appearance Pupil Exam: NORMAL ACCOMODATION - ENT Exam ENT Exam: Mucous Membranes Moist, Normal External Ear Exam - Neck Exam Neck Exam: Full ROM. absent: Meningismus - Respiratory Exam Respiratory Exam: NORMAL BREATHING PATTERN. absent: Respiratory Distress - Cardiovascular Exam Cardiovascular Exam: REGULAR RHYTHM, +S1, +S2 - GI/Abdominal Exam GI & Abdominal Exam: Soft, Normal Bowel Sounds. absent: Tenderness - Extremities Exam Extremities Exam: Normal Capillary Refill. absent: Calf Tenderness - Back Exam Back Exam: Full ROM. absent: CVA tenderness (L), CVA tenderness (R) - Neurological Exam Neurological Exam: Alert, Awake, Oriented x3 Neuro motor strength exam: Left Upper Extremity: 5, Right Upper Extremity: 5, Left Lower Extremity: 5, Right Lower Extremity: 5 - Psychiatric Exam Psychiatric exam: Normal Affect, Normal Mood - Skin Skin Exam: Dry, Normal Color, Warm Assessment and Plan - Assessment and Plan (Free Text) Plan: 77 yo female with history of HTN, Gout and HLD had intramedullary nailing of right femural fracture on 03/14/2018 at [facility]. She was transferred to Acute Rehab on 03/21/2018 for continuation of PT. 1.Right Hip Fracture S/P Intramedullary Nailing of Right Femural Fracture continue PT/OT Pain mgt 2. Influenza A resolved asymptomatic completed treatment with Tamiflu 3. Tinea Cruris continue home medication cream applied BID (Clotrimazole/Betamethasone cream) 4. HTN BP stable continue Losartan/HCTZ and Coreg 5. Chronic Lymphedema continue Lasix 20mg PO daily 6. Gout continue Allopurinol 100mg PO BID 7. DVT prophylaxis on Lovenox 40mg SC daily
[2018-04-05] MEDS ORDERED: Dexamethasone 4 mg/1 ml IAA ONE (16:37)
--- NOTE | 2018-04-05 16:40 | CP.PCM.PN ---
Subjective - Date & Time of Evaluation Date of Evaluation: 04/05/18 Time of Evaluation: 16:38 - Subjective Subjective: Patient seen in the room improved function but still not where she needs to be on stairs I told her that if she can do 3 steps she can do 5 she didn't really need to stop will discuss with therapy to push her a little harder also left knee is stiff and + synovial changes and I will inject the left knee Objective - Vital Signs/Intake and Output Vital Signs (last 24 hours): Temp Pulse Resp BP Pulse Ox 98.1 F 72 18 137/59 L 95 04/05/18 07:42 04/05/18 08:49 04/05/18 07:42 04/05/18 08:49 04/05/18 07:42 - Medications Medications: Current Medications Acetaminophen (Tylenol 325mg Tab) 650 mg PO Q4 PRN PRN Reason: Pain, Mild (1-3) Last Admin: 04/04/18 19:16 Dose: 650 mg Al Hydrox/Mg Hydrox/Simethicone (Maalox Plus 30 Ml) 30 ml PO Q4 PRN PRN Reason: Indigestion Albuterol Sulfate (Albuterol 0.083% Inhal Nikia (2.5 Mg/3 Ml) Ud) 2.5 mg INH Q4 PRN PRN Reason: Cough and congestion Last Admin: 03/31/18 17:54 Dose: 2.5 mg Albuterol/Ipratropium (Duoneb 3 Mg/0.5 Mg (3 Ml) Ud) 3 ml IH RQ6 [facility] Last Admin: 04/05/18 13:10 Dose: 3 ml Allopurinol (Zyloprim) 100 mg PO BID [facility] Last Admin: 04/05/18 08:50 Dose: 100 mg Atorvastatin Calcium (Lipitor) 10 mg PO DIN [facility] Last Admin: 04/04/18 17:25 Dose: 10 mg Calcium Carbonate (Oscal) 1,000 mg PO DAILY [facility] Last Admin: 04/05/18 09:18 Dose: 1,000 mg Carvedilol (Coreg) 12.5 mg PO Q12 [facility] Last Admin: 04/05/18 08:49 Dose: 12.5 mg Dexamethasone (Decadron Inj) 4 mg [facility]AA ONCE ONE Stop: 04/05/18 16:38 Docusate Sodium (Colace) 100 mg PO BID [facility] Last Admin: 04/05/18 08:50 Dose: 100 mg Enoxaparin Sodium (Lovenox) 40 mg SC DAILY [facility]; Protocol Last Admin: 04/05/18 08:48 Dose: 40 mg Furosemide (Lasix) 20 mg PO DAILY [facility] Last Admin: 04/05/18 08:49 Dose: 20 mg Guaifenesin/Dextromethorphan (Robitussin Dm) 10 ml PO Q6 PRN PRN Reason: Cough Last Admin: 03/29/18 18:03 Dose: 10 ml HCTZ/Losartan Potassium (Hyzaar 12.5 Mg-50 Mg) 1 tab PO DAILY [facility] Last Admin: 04/05/18 08:49 Dose: 1 tab Home Med (Patient's Own Medication) 1 unit TOP BID [facility] Last Admin: 04/05/18 08:48 Dose: 1 unit Lidocaine HCl (Lidocaine Hydrochloride 1% 10 Ml) 5 ml [facility] ONCE ONE Stop: 04/05/18 16:38 Loratadine (Claritin) 10 mg PO DAILY [facility] Last Admin: 04/05/18 08:50 Dose: 10 mg Oxycodone HCl (Oxycodone Immediate Release Tab) 2.5 mg PO Q4 PRN PRN Reason: Pain, severe (8-10) Polyethylene Glycol (Miralax) 17 gm PO DAILY [facility] Last Admin: 04/05/18 08:52 Dose: Not Given Sennosides (Senokot Tab) 8.6 mg PO HS [facility] Last Admin: 04/04/18 21:21 Dose: Not Given Tramadol HCl (Ultram) 50 mg PO Q4 PRN PRN Reason: for pain scale 4-7 Last Admin: 04/05/18 13:44 Dose: 50 mg Triamcinolone Acetonide (Kenalog-40 Inj) 40 mg IAA ONCE ONE Stop: 04/05/18 16:38 Vitamin D (Vitamin D 400 Intl Units Tab) 800 intlu PO DAILY [facility] Last Admin: 04/05/18 08:49 Dose: 800 intlu - Labs Labs: 04/03/18 05:30 04/03/18 05:30
[2018-04-05] MEDS ORDERED: Triamcinolone Acetonide 40 mg/mL Inj IAA ONE (17:00)
[2018-04-05] MEDS ORDERED: Lidocaine 1% (10 ml) Inj IAA ONE (17:00)
[2018-04-05] MEDS ORDERED: Lidocaine 1% PF (5ml) Amp INJ ONE (17:00)
[2018-04-06] MEDS: Albuterol-Ipratrop 3 mg / 0.5 (3 ml) UD IH SCH ×4 (01:00→19:18)
[2018-04-06 06:12] LABS: HEMOGLOBIN 9.2 g/dL (12.0-16.0); MEAN CELL VOLUME 76.1 fl (81.0-99.0); MEAN CORPUSCULAR HEMOGLOBIN 23.8 pg (27.0-31.0); MEAN CORPUSCULAR HGB CONC 31.2 g/dL (33.0-37.0); RBC 3.89 Mil/uL (3.80-5.20); RED CELL DISTRIBUTION WIDTH 18.7 % (11.5-14.5); WHITE BLOOD COUNT 4.8 K/uL (4.8-10.8)
[2018-04-06 06:23] LABS: BLOOD UREA NITROGEN 14 mg/dl (7-17); CALCIUM 8.8 mg/dL (8.4-10.2); GFR NON-AFRICAN AMERICAN > 60
[2018-04-06] MEDS: Cholecalciferol 400 Intl Units Tab PO SCH (09:08)
[2018-04-06] MEDS: BETAMETHASONE TOP SCH ×2 (09:09→17:37)
[2018-04-06] MEDS: POLYETHYLENE GLYCOL 3350 17 GM/Dose PACKET PO SCH (09:09)
[2018-04-06] MEDS: Enoxaparin 40 mg Syringe SC SCH (09:09)
[2018-04-06] MEDS: CLOTRIMAZOLE TOP SCH ×2 (09:09→17:37)
[2018-04-06] MEDS: HCTZ/Losartan 12.5/50 Tab PO SCH (09:10)
--- NOTE | 2018-04-06 13:18 | CP.PCM.PN ---
Subjective - Date & Time of Evaluation Date of Evaluation: 04/06/18 Time of Evaluation: 13:17 - Subjective Subjective: Patient doing well to have a left knee injection performed today to help with gait and pain she is set for 04/08/18 no sob/cp Objective - Vital Signs/Intake and Output Vital Signs (last 24 hours): Temp Pulse Resp BP Pulse Ox 97.0 F L 80 19 150/57 L 96 04/06/18 08:02 04/06/18 09:07 04/06/18 08:02 04/06/18 09:07 04/06/18 08:02 - Medications Medications: Current Medications Acetaminophen (Tylenol 325mg Tab) 650 mg PO Q4 PRN PRN Reason: Pain, Mild (1-3) Last Admin: 04/05/18 21:20 Dose: 650 mg Al Hydrox/Mg Hydrox/Simethicone (Maalox Plus 30 Ml) 30 ml PO Q4 PRN PRN Reason: Indigestion Albuterol Sulfate (Albuterol 0.083% Inhal Nikia (2.5 Mg/3 Ml) Ud) 2.5 mg INH Q4 PRN PRN Reason: Cough and congestion Last Admin: 03/31/18 17:54 Dose: 2.5 mg Albuterol/Ipratropium (Duoneb 3 Mg/0.5 Mg (3 Ml) Ud) 3 ml IH RQ6 [facility] Last Admin: 04/06/18 13:03 Dose: 3 ml Allopurinol (Zyloprim) 100 mg PO BID [facility] Last Admin: 04/06/18 09:08 Dose: 100 mg Atorvastatin Calcium (Lipitor) 10 mg PO DIN [facility] Last Admin: 04/05/18 16:47 Dose: 10 mg Calcium Carbonate (Oscal) 1,000 mg PO DAILY [facility] Last Admin: 04/06/18 09:09 Dose: 1,000 mg Carvedilol (Coreg) 12.5 mg PO Q12 [facility] Last Admin: 04/06/18 09:07 Dose: 12.5 mg Docusate Sodium (Colace) 100 mg PO BID [facility] Last Admin: 04/06/18 09:06 Dose: 100 mg Enoxaparin Sodium (Lovenox) 40 mg SC DAILY [facility]; Protocol Last Admin: 04/06/18 09:09 Dose: 40 mg Furosemide (Lasix) 20 mg PO DAILY [facility] Last Admin: 04/06/18 09:07 Dose: 20 mg Guaifenesin/Dextromethorphan (Robitussin Dm) 10 ml PO Q6 PRN PRN Reason: Cough Last Admin: 03/29/18 18:03 Dose: 10 ml HCTZ/Losartan Potassium (Hyzaar 12.5 Mg-50 Mg) 1 tab PO DAILY [facility] Last Admin: 04/06/18 09:10 Dose: 1 tab Home Med (Patient's Own Medication) 1 unit TOP BID [facility] Last Admin: 04/06/18 09:09 Dose: 1 unit Loratadine (Claritin) 10 mg PO DAILY [facility] Last Admin: 04/06/18 09:10 Dose: 10 mg Oxycodone HCl (Oxycodone Immediate Release Tab) 2.5 mg PO Q4 PRN PRN Reason: Pain, severe (8-10) Polyethylene Glycol (Miralax) 17 gm PO DAILY [facility] Last Admin: 04/06/18 09:09 Dose: Not Given Sennosides (Senokot Tab) 8.6 mg PO HS [facility] Last Admin: 04/05/18 22:00 Dose: Not Given Tramadol HCl (Ultram) 50 mg PO Q4 PRN PRN Reason: for pain scale 4-7 Last Admin: 04/06/18 10:08 Dose: 50 mg Vitamin D (Vitamin D 400 Intl Units Tab) 800 intlu PO DAILY [facility] Last Admin: 04/06/18 09:08 Dose: 800 intlu - Labs Labs: 04/06/18 05:25 04/06/18 05:25
--- NOTE | 2018-04-06 13:19 | PCM.PSYTMC ---
Acute Rehab Team Conference - - Vital Signs: Vital Signs (Last 8 Hours): Vital Signs 04/06/18 04/06/18 08:02 09:07 Temperature 97.0 F L Pulse Rate 80 80 Respiratory 19 Rate Blood Pressure 150/57 L 150/57 L O2 Sat by Pulse 96 Oximetry Pain: 0 - Precautions: Precautions: Fall Prevention - Medications/Other Issues: Comment: -Abdominal fold abrasion is healed. -Bowel incontinence at times. - Pain management. -Lovenox for DVT prevention - Consults: Comment: Dr. Foster - Physiatry. Dr. Chris - Psychology - Skin: Incision Site: Right hip Dressing Status: Clean, Dry, Intact Incision: Healing Well, Well Approximated Incision Line Treatment: W/ Dermabond dressing - Toileting: Toileting: Dependent - Bladder Management: Bladder Pattern: Incontinent Voiding Method: Toilet, Diaper, Purewick (Female external catheter) Bladder Management: Dependent Other Intervention:: Pre existing stress incontince. Purewick at night while in bed to decrease incidences of incontinence. - Transfers: Transfers: Contact Guard - ADL's: ADL's: Minimal Assistance - Pain Management: Other Intervention:: Pain scale 1-3, Tylenol 650 mg every 4 hours. Pain scale 4-7, Ultram 50 mg every 4 hours. Pain scale 8-10, Oxycodone IR 2.5 mg every 4 hours - Patient/Family Teaching: Other Intervention:: Teach patient active participation with ADLs, medication, bowel management, and safety precautions. - Goals/Time Frame: Comment: Patient to stay safe, aware of medication regimen, and no bowel accidents until discharge or next team conference. - Provider: Registered Nurse:: Melissa Grossman Physical Therapy - Bed Mobility Bed Mobility: Minimal Assistance - Transfers Wheelchair to Mat: Supervision, Verbal Cues Sit to Stand: Supervision, Verbal Cues - Ambulation Level of Assistance: Supervision Distance (ft.): 130 Assistive Devices: Rolling Walker - Stair Negotiation Stairs: Level of Assistance: Verbal Cues, Minimal Assistance Handrails: Right Stairs: Assistive Devices: Right Handrail, Crutches - Standing Balance Static Stand: Modified Richards with assistive device - Pain Pain (assessed during therapy session): 2 Alleviating Techniques: Medication, Ice Comment: R hip - Insight/Carryover Insight/Carryover: Good - Patient/Family Education Comment: safety, POC, d/c recommendations - Assessment/Plan Assessment: Pt participated in PT tx session focusing on BLE strengthening exercises, endurance activities, and functional mobility training. Spent increased time on stair negotiation today. Pt with difficulty ascending/descending with one sided handrail; ot eventually able to perform with R handrail, axillary crutch on L, and min A following extensive practice and cues for encouragement/relalaxation. Pt ambulates with RW and close S. Pt will continue to benefit from skilled PT interventions to address deficits, reduce fall risk, and maximzie functional independence. - Goals Timeframe: 1 week Goals: sit < > supine mod I. sit < > stand transfers mod I with RW. pt will ambulate 500 ft mod I with RW. Pt will ascend/descend 6 stairs with supervision from family - Provider Physical Therapist:: Linsey Dominguez License Number:: [id number] Occupational Therapy - Arousal/Attention/Orientation Level of Consciousness: Awake, Alert Patient Orientation: Place, Appropriate to Age, Appropriate to Situation - ADL/IADL Self Feeding: Modified Independent Grooming: Independent, Set-up Help Bathing-Upper Ext: Supervision, Verbal Cues, Set-up Help Bathing-Lower Ext: Supervision, Verbal Cues, Set-up Help Dressing-Upper Ext: Independent, Set-up Help Dressing-Lower Ext: Supervision, Verbal Cues, Set-up Help Comment: with assistive devices/strategies--takes longer than customary - Sitting Balance Static Sitting: Independent without upper extremity support Dynamic Sitting: Reaches across midline, Reaches out of base of support, Reaches within base of support, Requires supervision Comment: unsupported @ edge of bed - Transfers Wheelchair to Bed Transfers: Supervision, Verbal Cues, Set-up Help Toilet Transfers: Supervision, Verbal Cues, Set-up Help Comment: -shower transfers: CG/CS and verbal cues. -simulated tub transfers with CG/min assist and verbal cues for RLE - Wheelchair Management Level of Assistance: Modified Independent, Supervision Distance (ft.): 50 - Upper Extremity Status Right Upper Extremity Comment: AROM is WFLS Left Upper Extremity Comment: AROM is WFLS - Pain Pain (assessed during therapy session): 5 Alleviating Techniques: Medication, Ice, Inactivity Comment: R hip/thigh area - Insight/Carryover Insight/Carryover: Fair - Patient/Family Education Comment: -adls, transfer and mobility training with assistive devices--compensatory/adaptive strategies. -review uses/applications of leg freelance programmer/app developer, experiential therapist, sockaide, experiential therapist and sockide. -home modifications/adaptations for safe transfers/sit<->stand, adls. -breathing/strategies & pacing. - simulated tub/car transfers sequencing/safety. -safety strategies: weightshifting, hand palcement, reaching/stepping back for safe transfers. -pt needs additional training to increase safety/I with above tasks - Assessment/Plan Assessment: t is a 77 year old female with dx: s/p mechanical fall, RLE ORIF. *Precautions: falls, cardiac, anxiety, RLE WBAT. Pt limited by anxiety,, impaired RLE strength/ROM, impaired standing balance/tolerance, impaired safety awareness, ++pain in R hip/thigh area, impaired activity tolerance/endurance and overall strength---which impact on function in self care, transfers/mobility & Iadls. Pt will continue skilled occupational therapy to maximize overall function/safety in self care, transfers/mobility and Iadls using adaptive/compensatory strategies. Pt will continue to benefit from additional training for improve function in self care, bed, chair and tub transfers/bed mobility using safety measures. Pt continues to need emotional support and reassurance to complete tasks. Pt will continue to benefit from psychology consult for emotional support/coping strategies to better improve progress in therapy. Pt continues to make slow steady gains in functional transfers/mobility using RW. Recommend home PT/OT and [employer] BRIDGE ASSEMBLER then transition to outpatient PT. *Goal: Intermittent S for self care, transfers/mobility and Iadls using assistive devices. - Goals Timeframe: 3 days Comment: -LOWER BODY DRESSING: Mod I. -TOILETING: Mod I. -BATHING: I/setup seatd intermittently. -UPPER BODY DRESSING: Mod I. -GATHER/TRANSPORT ITEMS: Mod I with RW. -LIGHT HOMEMAKING/KITCHEN SKILLS: Supervision with RW. -TRANSFERS:<->bed, commode, chair and other surfaes with Mod I. -BED MOBILITY: Mod supine<->sit - Provider Occupational Therapist:: Mray Tyson License Number: [id number] Speech Therapy - Consult Information Patient on Program: No Recreational Therapy - Participation Participation: Participates in Individual and/or Group Sessions - Attendance Attendance: 3-5 times per week - Activities Leisure Activities: Socializing - Socialization Level of Socialization: Initiates/interacts freely with care givers and peer - Diversional Time Diversional Time: socializing, reading, cards - Assessment Assessment/Plan: Pt is agreeable to participate in 1:1 and group recreation therapy sessions offered on unit. Pt benefits from participating in diversional leisure activities and encouraged to complete these activities during her free time. Pt provided with mindfulness activities handouts to complete in free time as well. Pt enjoys receiving daily visits in her room for social support and encouragement. Pt's mood is stable-positive and will continue to be encouraged to participate in recreation therapy sessions offered on unit. Problems Currently Limiting Participation: pain, anxiety, decrease activity tolerance level Goals and Time Frame: Pt will be encouraged to participate in 1:1 and group recreation therapy sessions 3-5x week to improve activity tolerance level, arousal level, leisure awareness level, and diversion from pain by date of discharge. - Provider Therapist: Elana Baird Nutrition - Current Diet Current Diet/Supplement/Feedings: Heart healthy diet - Appetite Percent Meal Consumed: 75-100% - Comments Comments: Pt with good intake, no complaints. - Assessment/Goals/Time Frame Assessments/Goals/Time Frame: Pt at moderate nutritional risk. goals: 1. Pt to consume 75-100% of meals. 2. Blood glucoses to be between 70-180 mg/dl. Follow-up due on 04/10/2018 - Provider Provider: Kiana Moreno Case Management - Psychosocial Assessment Support Systems: James Velasco (spouse) - [phone] Psychological Interventions/Needs: Patient is AAOx3 and able to verbalize needs. Discharge Concerns: Patient has six steps to enter her home and is having episodes of incontinence. Patient/Family Meeting: CM met with patient and rehab team. Intervention/Goal/Outcome: 1. Goal: Supervision 2. Home with V[facility] vs outpatient (pending progress with stair navigation) 3. coordinate start of care with [facility] or outpatient services 4. caregiver training with and daughter - Discharge Plan Discharge Plan: Home with services Home Services: [facility]? Comment: Potentially starting at home with VNS until patient is comfortable enough to begin outpatient to continue with slightly more aggressive therapy. - Provider Provider: Sharon Dunn License Number: [id number] Rehabilitation Plan - Treatment Plan Treatment Plan: Physical Therapy, Occupational Therapy, Patient/Family Education - Discharge Plan Estimated Date of Discharge: 04/08/18 Discharge to: Home
--- NOTE | 2018-04-06 13:58 | PCM.PROC ---
Procedures Attestation:: I certify that I have explained the specified Operation(s) or Procedure(s), risks, benefits and reasonable alternatives to the Patient and/or other person responsible. The opportunity was given to ask questions and all questions answered - Joint Aspiration/Injection Joint #1 Consent Obtained: Verbal Consent Time Out Performed: Yes Side of Body: Left Joint Aspirated: Knee Ultrasound Guidance Used: No Skin Prep: Povidone-Iodine Needle Size Used: 22 G Fluid Clarity: Clear Total Fluid Removed (mls): 1 Medication Injected: Triamcinolone Acetate, Methylprednisolone, Lidocaine Patient Tolorated Procedure: Well Complications: None
[2018-04-07] MEDS: Albuterol-Ipratrop 3 mg / 0.5 (3 ml) UD IH SCH ×4 (01:44→19:16)
[2018-04-07] MEDS: HCTZ/Losartan 12.5/50 Tab PO SCH (08:19)
[2018-04-07] MEDS: Enoxaparin 40 mg Syringe SC SCH (08:20)
[2018-04-07] MEDS: POLYETHYLENE GLYCOL 3350 17 GM/Dose PACKET PO SCH (08:22)
[2018-04-07] MEDS: CLOTRIMAZOLE TOP SCH ×2 (08:23→16:13)
[2018-04-07] MEDS: BETAMETHASONE TOP SCH ×2 (08:23→16:13)
[2018-04-07] MEDS: Cholecalciferol 400 Intl Units Tab PO SCH (08:24)
--- NOTE | 2018-04-07 10:14 | CP.PCM.PN ---
Subjective - Date & Time of Evaluation Date of Evaluation: 04/07/18 Time of Evaluation: 10:30 - Subjective Subjective: Patient seen and examined . Feeling well. Participating with PT. Hemodynamicalluy stable, afebrile. No acute issues overnight.happy to go home tomorrow. Objective - Vital Signs/Intake and Output Vital Signs (last 24 hours): Temp Pulse Resp BP Pulse Ox 97.5 F L 64 22 120/60 98 04/07/18 08:15 04/07/18 08:18 04/07/18 08:15 04/07/18 08:20 04/07/18 08:15 - Medications Medications: Current Medications Acetaminophen (Tylenol 325mg Tab) 650 mg PO Q4 PRN PRN Reason: Pain, Mild (1-3) Last Admin: 04/05/18 21:20 Dose: 650 mg Al Hydrox/Mg Hydrox/Simethicone (Maalox Plus 30 Ml) 30 ml PO Q4 PRN PRN Reason: Indigestion Albuterol Sulfate (Albuterol 0.083% Inhal Nikia (2.5 Mg/3 Ml) Ud) 2.5 mg INH Q4 PRN PRN Reason: Cough and congestion Last Admin: 03/31/18 17:54 Dose: 2.5 mg Albuterol/Ipratropium (Duoneb 3 Mg/0.5 Mg (3 Ml) Ud) 3 ml IH RQ6 [facility] Last Admin: 04/07/18 07:52 Dose: 3 ml Allopurinol (Zyloprim) 100 mg PO BID [facility] Last Admin: 04/07/18 08:24 Dose: 100 mg Atorvastatin Calcium (Lipitor) 10 mg PO DIN [facility] Last Admin: 04/06/18 17:36 Dose: 10 mg Calcium Carbonate (Oscal) 1,000 mg PO DAILY [facility] Last Admin: 04/07/18 08:23 Dose: 1,000 mg Carvedilol (Coreg) 12.5 mg PO Q12 [facility] Last Admin: 04/07/18 08:18 Dose: 12.5 mg Docusate Sodium (Colace) 100 mg PO BID [facility] Last Admin: 04/07/18 08:18 Dose: 100 mg Enoxaparin Sodium (Lovenox) 40 mg SC DAILY [facility]; Protocol Last Admin: 04/07/18 08:20 Dose: 40 mg Furosemide (Lasix) 20 mg PO DAILY [facility] Last Admin: 04/07/18 08:20 Dose: 20 mg Guaifenesin/Dextromethorphan (Robitussin Dm) 10 ml PO Q6 PRN PRN Reason: Cough Last Admin: 03/29/18 18:03 Dose: 10 ml HCTZ/Losartan Potassium (Hyzaar 12.5 Mg-50 Mg) 1 tab PO DAILY [facility] Last Admin: 04/07/18 08:19 Dose: 1 tab Home Med (Patient's Own Medication) 1 unit TOP BID [facility] Last Admin: 04/07/18 08:23 Dose: 1 unit Loratadine (Claritin) 10 mg PO DAILY [facility] Last Admin: 04/07/18 08:18 Dose: 10 mg Oxycodone HCl (Oxycodone Immediate Release Tab) 2.5 mg PO Q4 PRN PRN Reason: Pain, severe (8-10) Polyethylene Glycol (Miralax) 17 gm PO DAILY [facility] Last Admin: 04/07/18 08:22 Dose: Not Given Sennosides (Senokot Tab) 8.6 mg PO HS [facility] Last Admin: 04/06/18 21:14 Dose: Not Given Tramadol HCl (Ultram) 50 mg PO Q4 PRN PRN Reason: for pain scale 4-7 Last Admin: 04/07/18 09:33 Dose: 50 mg Vitamin D (Vitamin D 400 Intl Units Tab) 800 intlu PO DAILY [facility] Last Admin: 04/07/18 08:24 Dose: 800 intlu - Labs Labs: 04/06/18 05:25 04/06/18 05:25 - Constitutional Appears: Non-toxic, No Acute Distress - Head Exam Head Exam: ATRAUMATIC, NORMAL INSPECTION, NORMOCEPHALIC - Eye Exam Eye Exam: EOMI, Normal appearance, PERRL Pupil Exam: NORMAL ACCOMODATION - ENT Exam ENT Exam: Mucous Membranes Moist, Normal Exam - Neck Exam Neck Exam: Full ROM, Normal Inspection - Respiratory Exam Respiratory Exam: Clear to Ausculation Bilateral, NORMAL BREATHING PATTERN. absent: Rales, Rhonchi, Wheezes - Cardiovascular Exam Cardiovascular Exam: REGULAR RHYTHM, RRR, +S1, +S2. absent: JVD - GI/Abdominal Exam GI & Abdominal Exam: Soft, Normal Bowel Sounds. absent: Distended, Guarding, Tenderness, Rebound - Rectal Exam Rectal Exam: Deferred - Extremities Exam Extremities Exam: Normal Capillary Refill. absent: Pedal Edema Additional comments: right hip surgical incision healed well - Back Exam Back Exam: NORMAL INSPECTION - Neurological Exam Neurological Exam: Alert, Awake, CN II-XII Intact, Oriented x3 - Psychiatric Exam Psychiatric exam: Normal Affect, Normal Mood - Skin Skin Exam: Dry, Intact, Normal Color, Warm Assessment and Plan - Assessment and Plan (Free Text) Assessment: 77 yo female with history of HTN, Gout and HLD had intramedullary nailing of right femoral fracture on 03/14/2018 at [facility]. She was transferred to Acute Rehab on 03/21/2018 for continuation of PT. At present doing well, participating with PT . 1.Right Hip Fracture S/P Intramedullary Nailing of Right Femoral Fracture continue PT/OT Doing well, participating with PT For discharge in AM 2. Influenza A resolved completed treatment with Tamiflu 3. Tinea Cruris continue home medication cream applied BID (Clotrimazole/Betamethasone cream) 4. HTN BP stable continue Losartan/HCTZ and Coreg 5. Chronic Lymphedema continue Lasix 20mg PO daily 6. Gout continue Allopurinol 100mg PO BID 7. Anemia unclear etiology stable 8. DVT prophylaxis on Lovenox 40mg SC daily
--- NOTE | 2018-04-07 18:14 | CP.PCM.PN ---
Subjective - Date & Time of Evaluation Date of Evaluation: 04/07/18 Time of Evaluation: 18:13 - Subjective Subjective: Patient seen in the room, family present did very well after yesterday's injection much better function on stairs today set for d/c home tomorrow and she wants to follow up in the future for an injection if needed Objective - Vital Signs/Intake and Output Vital Signs (last 24 hours): Temp Pulse Resp BP Pulse Ox 97.5 F L 64 22 120/60 98 04/07/18 08:15 04/07/18 08:18 04/07/18 08:15 04/07/18 08:20 04/07/18 08:15 - Medications Medications: Current Medications Acetaminophen (Tylenol 325mg Tab) 650 mg PO Q4 PRN PRN Reason: Pain, Mild (1-3) Last Admin: 04/05/18 21:20 Dose: 650 mg Al Hydrox/Mg Hydrox/Simethicone (Maalox Plus 30 Ml) 30 ml PO Q4 PRN PRN Reason: Indigestion Albuterol Sulfate (Albuterol 0.083% Inhal Nikia (2.5 Mg/3 Ml) Ud) 2.5 mg INH Q4 PRN PRN Reason: Cough and congestion Last Admin: 03/31/18 17:54 Dose: 2.5 mg Albuterol/Ipratropium (Duoneb 3 Mg/0.5 Mg (3 Ml) Ud) 3 ml IH RQ6 [facility] Last Admin: 04/07/18 13:05 Dose: 3 ml Allopurinol (Zyloprim) 100 mg PO BID [facility] Last Admin: 04/07/18 16:14 Dose: 100 mg Atorvastatin Calcium (Lipitor) 10 mg PO DIN [facility] Last Admin: 04/07/18 16:13 Dose: 10 mg Calcium Carbonate (Oscal) 1,000 mg PO DAILY [facility] Last Admin: 04/07/18 08:23 Dose: 1,000 mg Carvedilol (Coreg) 12.5 mg PO Q12 [facility] Last Admin: 04/07/18 08:18 Dose: 12.5 mg Docusate Sodium (Colace) 100 mg PO BID [facility] Last Admin: 04/07/18 16:12 Dose: 100 mg Enoxaparin Sodium (Lovenox) 40 mg SC DAILY [facility]; Protocol Last Admin: 04/07/18 08:20 Dose: 40 mg Furosemide (Lasix) 20 mg PO DAILY [facility] Last Admin: 04/07/18 08:20 Dose: 20 mg Guaifenesin/Dextromethorphan (Robitussin Dm) 10 ml PO Q6 PRN PRN Reason: Cough Last Admin: 03/29/18 18:03 Dose: 10 ml HCTZ/Losartan Potassium (Hyzaar 12.5 Mg-50 Mg) 1 tab PO DAILY [facility] Last Admin: 04/07/18 08:19 Dose: 1 tab Home Med (Patient's Own Medication) 1 unit TOP BID [facility] Last Admin: 04/07/18 16:13 Dose: 1 unit Loratadine (Claritin) 10 mg PO DAILY [facility] Last Admin: 04/07/18 08:18 Dose: 10 mg Oxycodone HCl (Oxycodone Immediate Release Tab) 2.5 mg PO Q4 PRN PRN Reason: Pain, severe (8-10) Polyethylene Glycol (Miralax) 17 gm PO DAILY [facility] Last Admin: 04/07/18 08:22 Dose: Not Given Sennosides (Senokot Tab) 8.6 mg PO HS [facility] Last Admin: 04/06/18 21:14 Dose: Not Given Tramadol HCl (Ultram) 50 mg PO Q4 PRN PRN Reason: for pain scale 4-7 Last Admin: 04/07/18 13:31 Dose: 50 mg Vitamin D (Vitamin D 400 Intl Units Tab) 800 intlu PO DAILY [facility] Last Admin: 04/07/18 08:24 Dose: 800 intlu - Labs Labs: 04/06/18 05:25 04/06/18 05:25
[2018-04-08] MEDS: Albuterol-Ipratrop 3 mg / 0.5 (3 ml) UD IH SCH ×2 (01:06→07:16)
[2018-04-08] MEDS: HCTZ/Losartan 12.5/50 Tab PO SCH (08:30)
[2018-04-08] MEDS: Enoxaparin 40 mg Syringe SC SCH (08:30)
[2018-04-08] MEDS: CLOTRIMAZOLE TOP SCH (08:31)
[2018-04-08] MEDS: BETAMETHASONE TOP SCH (08:31)
[2018-04-08] MEDS: POLYETHYLENE GLYCOL 3350 17 GM/Dose PACKET PO SCH (08:31)
[2018-04-08 08:32] VITALS: BP 133/58; PULSE 80
[2018-04-08] MEDS: Cholecalciferol 400 Intl Units Tab PO SCH (08:32)
[2018-04-08 08:36] VITALS: RESP 19; TEMP 97; O2SAT 94
== END 2018-04-08 13:30 | disposition home health service (06) | DRG 560 ==
PROVIDERS: ADMIT Student in an Organized Health Care Education/Training Program; ATTEND Student in an Organized Health Care Education/Training Program
PROC: F07Z9FZ Gait Training/Functional Ambulation Treatment using Assistive, Adaptive, Supportive or Protective Equipment (ICD-10-PCS; principal; 2018-03-21)
PROC: F08Z4FZ Home Management Treatment using Assistive, Adaptive, Supportive or Protective Equipment (ICD-10-PCS; 2018-03-21)
PROC: F07L6FZ Therapeutic Exercise Treatment of Musculoskeletal System - Lower Back / Lower Extremity using Assistive, Adaptive, Supportive or Protective Equipment (ICD-10-PCS; 2018-03-22)
PROC: 3E0U3BZ Introduction of Anesthetic Agent into Joints, Percutaneous Approach (ICD-10-PCS; 2018-04-06)
PROC: 3E0U33Z Introduction of Anti-inflammatory into Joints, Percutaneous Approach (ICD-10-PCS; 2018-04-06)
DX: S72.091D Other fracture of head and neck of right femur, subsequent encounter for closed fracture with routine healing (principal); Z68.41 Body mass index [BMI] 40.0-44.9, adult; B35.6 Tinea cruris; B36.8 Other specified superficial mycoses; J10.1 Influenza due to other identified influenza virus with other respiratory manifestations; M1A.9XX0 Chronic gout, unspecified, without tophus (tophi); G47.33 Obstructive sleep apnea (adult) (pediatric); E66.01 Morbid (severe) obesity due to excess calories; I89.0 Lymphedema, not elsewhere classified; E11.9 Type 2 diabetes mellitus without complications; F43.20 Adjustment disorder, unspecified; I10 Essential (primary) hypertension; E78.5 Hyperlipidemia, unspecified; E78.00 Pure hypercholesterolemia, unspecified; K21.9 Gastro-esophageal reflux disease without esophagitis; Z98.890 Other specified postprocedural states; W19.XXXD Unspecified fall, subsequent encounter; Z96.651 Presence of right artificial knee joint; Z66 Do not resuscitate; Z91.041 Radiographic dye allergy status